=== PATIENT | female | born 1950 | race Caucasian/White ===

== ENCOUNTER 2019-04-26 00:10 | Day surgery (SDC) | payer BC, SELFPAY ==
[2019-04-05 10:50] VITALS: BP 146/90; PULSE 72; RESP 18; TEMP 36.7; O2SAT 98; BMI 32.9
--- NOTE | 2019-04-23 10:50 | HP_ITS ---
DATE OF SERVICE: 04/26/2019 ADMIT DIAGNOSIS: Degenerative joint disease, right knee. HISTORY OF PRESENT ILLNESS: The patient is a 69-year-old female patient of Khan[facility], who presents today for a right total knee arthroplasty. She has been having pain in this knee for years. She did have a cortisone injection last September in 2018 with minimal help. She has been on anti-inflammatories in the past, but has stopped them due to elevation of her creatinine. She takes Tylenol only for pain. She has severe arthritis in the lateral compartment as well as the patellofemoral joint in the right knee. She feels at this point she is ready to proceed with total knee arthroplasty rather than continuing nonsurgical treatment. PAST MEDICAL AND SURGICAL HISTORY: She had hysterectomy in , rotator cuff surgery in 2001. She has hypothyroidism as well as diabetes. CURRENT MEDICATIONS: Takes atorvastatin 20 mg daily, calcium daily, fluoxetine 20 mg daily, folic acid 1 mg daily, losartan 50 mg daily, metformin 1000 mg daily, montelukast 10 mg daily, niacin 1000 mg daily, Synthroid 0.125 mcg daily. ALLERGIES: SHE HAS NO KNOWN DRUG ALLERGIES. FAMILY HISTORY: Significant for hypertensive disorder. SOCIAL HISTORY: She is a nonsmoker. REVIEW OF SYSTEMS: Positive for the diabetes. PHYSICAL EXAMINATION: VITAL SIGNS: She is 5 feet 10 inches, 223 pounds. Other vital signs per nursing on the morning of surgery. HEENT: Grossly normal. LUNGS: Mckinley bilaterally. HEART: Regular rate and rhythm. MUSCULOSKELETAL: She walks with a 4-prong cane and a mild limp. Range of motion of the right knee is from 2-140 with a trace effusion. Normal stability. Moderately severe pain with patellofemoral grind. Mild lateral joint line tenderness. No edema in the lower extremities. Normal sensation. Skin is all normal. 2+ dorsalis pedis, posterior tibial pulse. Hip range of motion is full without discomfort. Negative Stinchfield maneuver. Normal quad strength and ankle dorsiflexion eversion and inversion strength. IMAGING: X-rays demonstrate moderately severe patellofemoral arthritis in the right knee with early bone loss, moderately severe lateral compartment arthritis narrowing on the PA flexion view with 8 degrees of anatomic valgus alignment standing. IMPRESSION: Patient has severe lateral compartment and patellofemoral arthritis in the right knee with continued symptoms. Again she would like to proceed with total knee arthroplasty. Surgical procedure as well as risks and complications were discussed. All questions were answered and we will proceed. The patient will avoid any aspirin, ibuprofen products 1 week prior to surgery. We will plan to use Eliquis for 2 weeks followed by baby aspirin twice a day for deep venous thrombosis prophylaxis. Her nasal swab was negative. Chem panel, her creatinine was at 1.1. Her GFR was 49. Rest of her Chem panel is within normal limits. Hemoglobin A1c was 5.1, hemoglobin was 14.8, platelets are 205. Her EKG had some abnormalities, which necessitated a stress test, which was normal. There was no evidence of ischemia or irreversible ischemia or infarct. Ejection fraction was greater than 70%. The patient will see Khanh for presurgical clearance as well. Lewis I MT: Epifanio
--- NOTE | 2019-04-25 10:02 | WPDANESEPP ---
Anes - Eval Pre Procedure Procedure: Operation Date: 04/26/19 07:30 Proposed Procedures p Right Total Knee Arthroplasty(Right) - Feliz Cantrell MD Date/Time: 04/25/19 10:02 Pre Op Diagnosis: Osteo Arthritis Right Knee Patient Data Age: 69 Gender: F Height: 1.78 m Weight: 104.2 kg Last Vital Signs Temp 36.7 C 04/05/19 10:50 Pulse 72 04/05/19 10:50 Resp 18 04/05/19 10:50 BP 146/90 H 04/05/19 10:50 Pulse Ox 98 04/05/19 10:50 Allergies Allergy/AdvReac Type Severity Reaction Status Date / Time No Known Allergies Allergy Verified 04/05/19 10:09 Home Medications Medication Instructions Recorded Confirmed Type ascorbic acid (vitamin C) 1,000 mg 1,000 mg PO DAILY 03/11/19 04/05/19 History tablet,extended release atorvastatin 20 mg tablet 20 mg PO DAILY 03/11/19 04/05/19 History calcium carbonate-vitamin D3 600 1 cap PO DAILY 03/11/19 04/05/19 History mg (1,500 mg)-400 unit capsule fluoxetine 20 mg capsule 20 mg PO DAILY 03/11/19 04/05/19 History levothyroxine 137 mcg tablet 137 mcg PO DAILY 03/11/19 04/05/19 History losartan 50 mg tablet 50 mg PO DAILY 03/11/19 04/05/19 History montelukast 10 mg tablet 10 mg PO DAILY 03/11/19 04/05/19 History niacin 1,000 mg tablet,extended 1,000 mg PO DAILY 03/11/19 04/05/19 History release 24 hr PNV cmb#95-ferrous fumarate-FA 1 tablet PO DAILY 04/05/19 04/05/19 History [] acetaminophen [Tylenol Extra 1,000 mg PO BID PRN 04/05/19 04/05/19 History Strength] aspirin [Adult Low Dose Aspirin] 81 mg PO DAILY 04/05/19 04/05/19 History metformin 1,000 mg PO DAILY 04/05/19 04/05/19 History omega 7-cvr-sux-fish oil [Fish Oil] 1 cap PO BID 04/05/19 04/05/19 History Patient hx anesthesia problems: none Family hx anesthesia problems: none PMFSH Past Medical History Medical History (Updated 04/25/19 @ 10:03 by Tristian Rollins CRNA) Abnormal EKG Anxiety Arthritis Benign essential hypertension BMI 33.0-33.9,adult Depression Diabetes DJD (degenerative joint disease), multiple sites Elevated glucose Elevated serum creatinine Encounter for Medicare annual wellness exam HTN (hypertension) Hyperlipidemia Hypothyroidism (acquired) 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
[2019-04-26] VITALS (13 sets, daily range): BP systolic 96–139; BP diastolic 63–86; PULSE 56–79; RESP 13–20; TEMP 36.2–37; O2SAT 93–100
--- NOTE | ~2019-04-26 | XR_ITS ---
EXAMINATION: XR knee RT 2V DATE: 04/26/2019 11:10 INDICATION: Right knee arthroplasty. Postop. TECHNIQUE: 2 views of right knee were obtained. COMPARISON: Right knee radiographs 08/15/2018 FINDINGS: There is a total right knee arthroplasty in near-anatomic alignment with patellar resurfaci ng. No fracture. There is gas in the knee joint and soft tissues, consistent with recent surgery. IMPRESSION: 1. Total right knee arthroplasty in near-anatomic alignment. Reviewed, dictated and finalized at location A. RNMENT AFFAIRS RESEARCHER
[2019-04-26] MEDS: LACTATED RINGERS 1,000 ML 30 ML IV CONT ×2 (06:45→11:11)
--- NOTE | 2019-04-26 06:57 | WPDANESEPPF ---
Anes - Initial Pre Proc Eval Procedure: Operation Date: 04/26/19 07:30 Proposed Procedures p Right Total Knee Arthroplasty(Right) - Feliz Cantrell MD Date/Time: 04/26/19 06:57 Surgeon: Feliz Cantrell MD Pre Op Diagnosis: Osteo Arthritis Right Knee Patient Data Age: 69 Gender: F Height: 5 ft 10 in Weight: 106.5 kg Last Vital Signs Temp 98.0 F 04/05/19 10:50 Pulse 72 04/05/19 10:50 Resp 18 04/05/19 10:50 BP 146/90 H 04/05/19 10:50 Pulse Ox 98 04/05/19 10:50 Allergies Allergy/AdvReac Type Severity Reaction Status Date / Time No Known Allergies Allergy Verified 04/26/19 06:21 Home Medications Medication Instructions Recorded Confirmed Type ascorbic acid (vitamin C) 1,000 mg 1,000 mg PO DAILY 03/11/19 04/26/19 History tablet,extended release atorvastatin 20 mg tablet 20 mg PO DAILY 03/11/19 04/26/19 History calcium carbonate-vitamin D3 600 1 cap PO DAILY 03/11/19 04/26/19 History mg (1,500 mg)-400 unit capsule fluoxetine 20 mg capsule 20 mg PO DAILY 03/11/19 04/26/19 History levothyroxine 137 mcg tablet 137 mcg PO DAILY 03/11/19 04/26/19 History losartan 50 mg tablet 50 mg PO DAILY 03/11/19 04/26/19 History montelukast 10 mg tablet 10 mg PO DAILY 03/11/19 04/26/19 History niacin 1,000 mg tablet,extended 1,000 mg PO DAILY 03/11/19 04/26/19 History release 24 hr PNV cmb#95-ferrous fumarate-FA 1 tablet PO DAILY 04/05/19 04/26/19 History [] acetaminophen [Tylenol Extra 1,000 mg PO BID PRN 04/05/19 04/05/19 History Strength] aspirin [Adult Low Dose Aspirin] 81 mg PO DAILY 04/05/19 04/26/19 History metformin 1,000 mg PO DAILY 04/05/19 04/26/19 History omega 5-bwt-kfk-fish oil [Fish Oil] 1 cap PO BID 04/05/19 04/26/19 History Patient hx anesthesia problems: none Family hx anesthesia problems: none [facility] Past Medical History Medical History (Updated 04/25/19 @ 10:03 by Tristian Rollins CRNA) Abnormal EKG Anxiety Arthritis Benign essential hypertension BMI 33.0-33.9,adult Depression Diabetes DJD (degenerative joint disease), multiple sites Elevated glucose Elevated serum creatinine Encounter for Medicare annual wellness exam HTN (hypertension) Hyperlipidemia Hypothyroidism (acquired) 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 Family History Family History Sibling Acute myocardial infarction, Onset Age: 63 Patient's brother is Father Family history of heart disease in male family member before age 55 Acute myocardial infarction Mother Cerebrovascular accident Other Family history of cardiovascular disease Family history of coronary artery disease Hypertension Social History Social History Smoking status: Never smoker Alcohol intake: current Anes - Eval Final PreProcedure Day of Procedure 04/26/19 06:57 Patient weight: overweight Heart: regular rate and rhythm Lungs: clear to auscultation Airway: Mallampati scale class II Neurological: alert and oriented Last oral intake: >/= 8 hours ASA classification: III Emergent: no Anesthetic plan: proceed Anesthesia type and monitoring: regional spinal and standard monitoring Informed Consent: The patient's anesthetic plan and its attendant risks and benefits were discussed with the patient/family/POA. Questions were solicited and answers provided to the satisfaction of the patient/family/POA.
[2019-04-26] MEDS: IBUPROFEN IV 800 MG/200 ML 800 MG/200 ML BAG 400 MG IVPB (07:17)
--- NOTE | 2019-04-26 07:26 | WPDHPUPDATE1 ---
History and Physical Update Update Date/Time: 04/26/19 07:26 History and Physical has been reviewed, including an updated exam of the patient. There are NO changes in the patient's condition. Risks, benefits, and alternatives have been discussed and questions answered. Patient agrees to proceed with procedure.
[2019-04-26 07:33] LABS: Glucose Point of Care 114 (65-105)
[2019-04-26] MEDS: ceFAZolin 2 GM/D5W 50 ML 2 GM/50 ML BAG IVPB (07:38)
[2019-04-26] MEDS: GENTAMICIN BONE CEMENT REFOBACIN 1 EACH TOPICAL (08:04)
[2019-04-26] MEDS: ceFAZolin SODIUM 1 GM VIAL 3 GM IRRIGATION (08:04)
[2019-04-26] MEDS: ceFAZolin SODIUM 1 GM VIAL IV PUSH (10:16)
--- NOTE | 2019-04-26 10:51 | PM.PROC ---
Procedure Note - Detailed Date of procedure: 04/26/19 Pre-op diagnosis: Osteo Arthritis Right Knee Post-op diagnosis: same Procedure performed: Right total knee arthroplasty Description of procedure: Patient was brought to the operating room and spinal anesthesia was administered. the right knee was prepped draped usual fashion. She had about a 3? flexion contracture under anesthesia. She received 2 g Ancef weight based vancomycin preoperatively 1 g of tranexamic acid. The right leg was exsanguinated and tourniquet elevated to 250 mm of mercury. An 8 inch longitudinal incision was made in the vastus medialis splitting approach utilized. The infrapatellar and suprapatellar fat pads were excised and a quadriceps synovectomy carried out. she had rather severe degenerative changes of both the trochlea and the patella. the patella was scalp. Measured 23.5 mm in thickness. it was cut to 16 mm. A lateral facetectomy was conservatively performed. protector cap applied to the patella. A guide sierra was inserted down the femoral canal after aspiration canal contents using the 5? valgus cutting bushing 10 mm of bone removed the distal femur off the intact articular cartilage on the medial femoral condyle. This removed about 8 laterally. next the tibial plateau was cut. Rojelio is to make a conservative tibial cut given her minimal posterior slope on the tibia. my 1st cut did not get down to the level of subchondral bone posteriorly either medially or laterally. The dropped the guide 2 mm in Re cut the tibia and this gave us the desired skim cut. With the PCL released we had ample space in flexion opening up 9 mm medially 12 mm laterally. Whitesides line and the trans epicondylar axis were drawn on the femur. the femoral sizing guide was set at 3? of external rotation which matched both and posterior and high referencing pin holes replaced. The femur was cut to a size 70 femur which fit nicely. the alignment of the tibial cut was confirmed to be accurate. We had equal flexion gap space at 90? both medially and laterally with a trial insert. the tibia was sized to a size vanguard 75 which was rotated to appropriate alignment referenced off the medial 3rd of tubercle anterior cortex of tibia and the foot. this fit line to line drop machine operator lateral to anteromedial. This was punched. We trialed with the 10 insert and the knee lacked about 10?. We pie crusted the tight lateral capsule with the cautery and this improved the flexion contracture to about 60?. We were far too loose in flexion with the 10. I trialed the 12 and there was a little bit of play with the 12 in flexion and this seemed appropriate and certainly not too tight in flexion. therefore we cut 3 mm off the distal femur chamfer cuts were revisited. The minimal protruding bone posteriorly was and removed referencing off the femoral trial. We trialed with the 12 and we still lacked about 5? of extension but we opened up about 3 mm medially at 15? of flexion so I did not wish to remove more distal femur. Our stability at 90? was optimal at this time. a concerted effort to release the drop machine operator lateral capsule from the drop machine operator lateral margin of the tibial plateau was performed. We left the lateral collateral ligament and the popliteus tendon intact. Additionally removed about 2 mm of lateral osteophyte from the lateral tibial plateau. On trialing the still lacked about 2? of extension. We revisited the posterior capsule which was released centrally and laterally off posterior femur trialing again the knee came out to full extension with negative bounce with a 0.5 mm lateral opening in 2 mm of medial opening in full extension increasing to 3 mm of medial opening at 15? and 30? flexion. anterior drawer was excellent. With a Lugo elevator we had about a mm of gapping both medially and laterally at 90?. [place] flexion was to 140. Satisfied with this the lug holes in the femoral trial were drilled and a S step drill used to make multip
[2019-04-26 12:13] LABS: Glucose Point of Care 108 (65-105)
--- NOTE | 2019-04-26 12:21 | ADMGEN ---
This patient, Elizabeth De Leon, was admitted to 3 [facility] Surg Room 310-01. Patient/family oriented to hospital policies and general routines including ID bracelet, bed and alarms, visiting hours, pain management, procedures, bathroom and other care routines, personal items, smoking policy, room service/diet, and visiting hours. Valuables list has been completed. Information on how to activate the Rapid Response Team has been discussed. Patient/Family are encouraged to report perceived risks to care and to ask questions if they do not understand what they are told or what they should do.
[2019-04-26] MEDS: DEXTROSE 5%/0.45% SOD CHL 1,000 ML 100 ML IV CONT ×2 (13:09→23:36)
[2019-04-26] MEDS: GABAPENTIN 300 MG CAPSULE PO ×2 (13:10→17:34)
[2019-04-26] MEDS: ACETAMINOPHEN 500 MG TABLET 1000 MG PO ×3 (13:10→23:36)
[2019-04-26] MEDS: DOCUSATE SODIUM 100 MG CAPSULE PO (17:34)
[2019-04-27 02:00] VITALS: BP 104/57; PULSE 76; RESP 18; TEMP 36.8; O2SAT 97
[2019-04-27] MEDS: ACETAMINOPHEN 500 MG TABLET 1000 MG PO ×2 (05:25→11:19)
[2019-04-27 05:53] VITALS: BP 135/76; PULSE 72; RESP 18; TEMP 36.5; O2SAT 96
[2019-04-27 06:24] LABS: Basophils Percent Auto 0.2 % (0.2-1.2); Hematocrit 34.1 % (37.0-47.0); Hemoglobin 11.5 g/dL (12.0-15.0); Immature Granulocyte Absolute 0.04 K/mm3 (0.00-0.031); Immature Granulocyte Percent A 0.3 % (0-0.5); Lymphocytes Absolute Auto 1.07 K/mm3 (0.9-3.2); Lymphocytes Percent Auto 9.2 % (18.3-44.2); Mean Corpuscular HGB Conc 33.7 g/dl (32-36); Mean Corpuscular Hemoglobin 31.3 pg (26-34); Mean Corpuscular Volume 92.9 fl (80-100); Mean Platelet Volume 9.7 fl (7.4-10.4); Monocytes Percent Auto 8.7 % (2.6-8.5); Neutrophils Absolute Auto 9.5 K/mm3 (1.3-6.7); Neutrophils Percent Auto 81.6 % (45.5-73.1); Platelet Count Result 206 k/mm3 (150-375); Red Blood Count 3.67 M/mm3 (4.2-5.4); Red Cell Distribution Width 12.5 % (11.5-14.5); White Blood Count 11.6 K/mm3 (4.5-10.0)
--- NOTE | 2019-04-27 06:28 | P.PNOP_ITS ---
Progress Note: A&P Additional Plan POD 1 alert avss labs-pending, wd-dry NVI pain is controlled with regime she is on, has been up walking yesterday, plan for pt to do both PT sessions today then home Subjective Subjective Date/Time Seen: 04/27/19 06:28 Objective Data Vital Signs Vital Signs: Vital Signs - 24 hr 04/26/19 07:32 04/26/19 11:11 04/26/19 11:15 Temperature 36.2 C L 36.3 C L Pulse Rate 56 L 79 72 Respiratory Rate 16 16 15 Blood Pressure 136/84 124/70 121/65 Pulse Oximetry 98 100 100 04/26/19 11:30 04/26/19 11:45 04/26/19 12:00 Temperature Pulse Rate 78 76 69 Respiratory Rate 13 17 14 Blood Pressure 121/72 96/81 L 115/64 Pulse Oximetry 100 95 95 04/26/19 12:15 04/26/19 12:30 04/26/19 12:45 Temperature 37.0 C Pulse Rate 79 76 65 Respiratory Rate 17 18 18 Blood Pressure 115/64 132/74 132/68 Pulse Oximetry 95 95 98 04/26/19 13:15 04/26/19 14:15 04/26/19 18:00 Temperature 36.9 C 36.9 C Pulse Rate 68 67 62 Respiratory Rate 18 20 18 Blood Pressure 130/71 139/86 135/78 Pulse Oximetry 96 98 100 04/26/19 22:00 04/27/19 02:00 04/27/19 05:53 Temperature 36.6 C 36.8 C 36.5 C Pulse Rate 78 76 72 Respiratory Rate 16 18 18 Blood Pressure 113/63 104/57 L 135/76 Pulse Oximetry 93 97 96 Intake/Output Intake/Output: Intake & Output 04/24/19 04/25/19 04/26/19 04/27/19 23:59 23:59 23:59 23:59 Intake Total 3520 550 Output Total 1300 1950 Balance 2220 -1400 Meds/Results Medications: Active Medications Generic Name Dose Route Start Last Admin Trade Name Freq PRN Reason Stop Dose Admin Acetaminophen 1,000 mg 04/26/19 12:17 04/27/19 05:25 Tylenol Tablet PO 1,000 mg Q6H JEFF Administration Apixaban 2.5 mg 04/27/19 09:00 Eliquis PO 02/15/20 21:01 Q12HR [facility] Ascorbic Acid 1,000 mg 04/27/19 09:00 Vitamin C PO QAM [facility] Atorvastatin Calcium 20 mg 04/27/19 09:00 Lipitor PO DAILY [facility] Calcium Carbonate 500 mg 04/27/19 09:00 Os-Naseem 500 +D Tablet PO QAM [facility] Celecoxib 100 mg 04/27/19 09:00 Celebrex PO DAILY@0900 [facility] Cephalexin HCl 500 mg 04/27/19 12:00 Keflex Capsule PO 05/04/19 12:01 Q6HR [facility] Docusate Sodium 100 mg 04/26/19 17:00 04/26/19 17:34 Colace Capsule PO 100 mg BID [facility] Administration Fentanyl Citrate 25 mcg 04/26/19 06:58 04/26/19 12:10 Sublimaze IV PUSH 25 mcg Q2M PRN Administration Pain Fluoxetine HCl 20 mg 04/27/19 09:00 Prozac PO DAILY [facility] Gabapentin 300 mg 04/26/19 13:00 04/26/19 17:34 Neurontin PO 300 mg TID [facility] Administration Lactated Ringer's 1,000 mls @ 30 mls/hr 04/25/19 11:25 04/26/19 12:39 Lr - Lactated Ringers Iv IV CONT Not Given .Q24H [facility] Lactated Ringer's 1,000 mls @ 30 mls/hr 04/26/19 07:00 04/26/19 12:17 Lr - Lactated Ringers Iv IV CONT Infus
--- NOTE | 2019-04-27 06:28 | PM.PNORT ---
Progress Note: A&P Additional Plan POD 1 alert avss labs-pending, wd-dry NVI pain is controlled with regime she is on, has been up walking yesterday, plan for pt to do both PT sessions today then home Subjective Subjective Date/Time Seen: 04/27/19 06:28 Objective Data Vital Signs Vital Signs: Vital Signs - 24 hr 04/26/19 07:32 04/26/19 11:11 04/26/19 11:15 Temperature 36.2 C L 36.3 C L Pulse Rate 56 L 79 72 Respiratory Rate 16 16 15 Blood Pressure 136/84 124/70 121/65 Pulse Oximetry 98 100 100 04/26/19 11:30 04/26/19 11:45 04/26/19 12:00 Temperature Pulse Rate 78 76 69 Respiratory Rate 13 17 14 Blood Pressure 121/72 96/81 L 115/64 Pulse Oximetry 100 95 95 04/26/19 12:15 04/26/19 12:30 04/26/19 12:45 Temperature 37.0 C Pulse Rate 79 76 65 Respiratory Rate 17 18 18 Blood Pressure 115/64 132/74 132/68 Pulse Oximetry 95 95 98 04/26/19 13:15 04/26/19 14:15 04/26/19 18:00 Temperature 36.9 C 36.9 C Pulse Rate 68 67 62 Respiratory Rate 18 20 18 Blood Pressure 130/71 139/86 135/78 Pulse Oximetry 96 98 100 04/26/19 22:00 04/27/19 02:00 04/27/19 05:53 Temperature 36.6 C 36.8 C 36.5 C Pulse Rate 78 76 72 Respiratory Rate 16 18 18 Blood Pressure 113/63 104/57 L 135/76 Pulse Oximetry 93 97 96 Intake/Output Intake/Output: Intake & Output 04/24/19 04/25/19 04/26/19 04/27/19 23:59 23:59 23:59 23:59 Intake Total 3520 550 Output Total 1300 1950 Balance 2220 -1400 Meds/Results Medications: Active Medications Generic Name Dose Route Start Last Admin Trade Name Freq PRN Reason Stop Dose Admin Acetaminophen 1,000 mg 04/26/19 12:17 04/27/19 05:25 Tylenol Tablet PO 1,000 mg Q6H JEFF Administration Apixaban 2.5 mg 04/27/19 09:00 Eliquis PO 02/15/20 21:01 Q12HR [facility] Ascorbic Acid 1,000 mg 04/27/19 09:00 Vitamin C PO QAM [facility] Atorvastatin Calcium 20 mg 04/27/19 09:00 Lipitor PO DAILY [facility] Calcium Carbonate 500 mg 04/27/19 09:00 Os-Naseem 500 +D Tablet PO QAM [facility] Celecoxib 100 mg 04/27/19 09:00 Celebrex PO DAILY@0900 [facility] Cephalexin HCl 500 mg 04/27/19 12:00 Keflex Capsule PO 05/04/19 12:01 Q6HR [facility] Docusate Sodium 100 mg 04/26/19 17:00 04/26/19 17:34 Colace Capsule PO 100 mg BID JEFF Administration Fentanyl Citrate 25 mcg 04/26/19 06:58 04/26/19 12:10 Sublimaze IV PUSH 25 mcg Q2M PRN Administration Pain Fluoxetine HCl 20 mg 04/27/19 09:00 Prozac PO DAILY [facility] Gabapentin 300 mg 04/26/19 13:00 04/26/19 17:34 Neurontin PO 300 mg TID JEFF Administration Lactated Ringer's 1,000 mls @ 30 mls/hr 04/25/19 11:25 04/26/19 12:39 Lr - Lactated Ringers Iv IV CONT Not Given .Q24H JEFF Lactated Ringer's 1,000 mls @ 30 mls/hr 04/26/19 07:00 04/26/19 12:17 Lr - Lactated Ringers Iv IV CONT Infused .Q24H JEFF Infusion Cefazolin Sodium 1 gm in 50 mls @ 100 mls/hr 04/26/19 15:30 04/26/19 23:35 Ancef 1 Gm/D5w 50 Ml Pm IVPB 04/27/19 07:59 100 mls/hr Q8H JEFF Administration Dextrose/Sodium Chloride 1,000 mls @ 100 mls/hr 04/26/19 12:17 04/26/19 23:36 Dextrose 5% Sodium Chloride 0.45% IV CONT 100 mls/hr .Q10H JEFF Administration Vancomycin HCl 1,000 mg in 250 mls @ 250 mls/hr 04/26/19 19:00 04/26/19 19:22 Vancomycin 1,000 Mg/D5w 250 Ml IVPB 04/27/19 07:59 Infused Q12H JEFF Infusion Levothyroxine Sodium 112 mcg 04/27/19 06:30 Synthroid PO DAILY@0630 JEFF Levothyroxine Sodium 25 mcg 04/27/19 06:30 Synthroid PO DAILY@0630 JEFF Losartan Potassium 50 mg 04/27/19 09:00 Cozaar PO DAILY JEFF Metformin HCl 1,000 mg 04/27/19 08:00 Glucophage PO DAILY@0800 JEFF Montelukast Sodium 10 mg 04/27/19 09:00 Singulair PO DAILY JEFF Naloxone HCl 0.1 mg 04/26/19 12:17 Narcan IV PUSH Q2M PRN Opiate Reversal Ondansetron HCl 4 mg 04/26/19 06:58 Zofran Inj IV PUSH
[2019-04-27] MEDS: LEVOTHYROXINE SODIUM 112 MCG TABLET PO (06:34)
[2019-04-27] MEDS: LEVOTHYROXINE SODIUM 25 MCG TABLET PO (06:34)
[2019-04-27 06:35] LABS: Blood Urea Nitrogen 17 mg/dL (7-17); Calcium 8.2 mg/dL (8.4-10.2); Carbon Dioxide 25 mmol/L (22-30); Chloride 98 mmol/L (98-107); Estimated CRCL calculation 55 ml/min; Estimated Glomerular Filt Rate 49; Glucose 135 mg/dL (65-105); Potassium 4.2 mmol/L (3.4-5.0); Sodium 131 mmol/L (137-145)
--- NOTE | 2019-04-27 07:55 | P.PNAN_ITS ---
Anes - Prog Note Post-Op Date/Time: 04/27/19 07:55 Cardiovascular status: normal Respiratory status: normal Airway patency: baseline Mental status: baseline Post-Op hydration status: normal Vital Signs: Last Vital Signs Temp 36.5 C 04/27/19 05:53 Pulse 72 04/27/19 05:53 Resp 18 04/27/19 05:53 BP 135/76 04/27/19 05:53 Pulse Ox 96 04/27/19 05:53 I/O: Intake & Output 04/26/19 04/26/19 04/27/19 15:59 23:59 07:59 Intake Total 400 3120 750 Output Total 250 1050 2750 Balance 150 2069 Laboratory Tests 04/27/19 05:51 04/27/19 05:51 04/26/19 04/26/19 04/27/19 06:52 12:11 05:51 WBC 11.6 H RBC 3.67 L Hgb 11.5 L D Hct 34.1 L MCV 92.9 MCH 31.3 MCHC 33.7 RDW 12.5 Plt Count 206 MPV 9.7 Immature Gran % (Auto) 0.3 Neut % (Auto) 81.6 H Lymph % (Auto) 9.2 L [place] % (Auto) 8.7 H Eos % (Auto) 0.0 Baso % (Auto) 0.2 Lymph # (Auto) 1.07 [place] # (Auto) 1.0 H Eos # (Auto) 0.0 Baso # (Auto) 0.0 Abs Immat Gran (auto) 0.04 H Absolute Neuts (auto) 9.5 H Absolute Nucleated RBC 0.0 Nucleated RBC % 0.0 Sodium Potassium Chloride Carbon Dioxide BUN Creatinine Estim Creat Clear Calc Estimated GFR Glucose POC Capillary Glucose 108 Calcium Blood Type O Positive Antibody Screen Negative 04/27/19 05:51 WBC RBC Hgb Hct MCV MCH MCHC RDW Plt Count MPV Immature Gran % (Auto) Neut % (Auto) Lymph % (Auto) [place] % (Auto) Eos % (Auto) Baso % (Auto) Lymph # (Auto) [place] # (Auto) Eos # (Auto) Baso # (Auto) Abs Immat Gran (auto) Absolute Neuts (auto) Absolute Nucleated RBC Nucleated RBC % Sodium 131 L Potassium 4.2 Chloride 98 Carbon Dioxide 25 BUN 17 Creatinine 1.10 H Estim Creat Clear Calc 55 Estimated GFR 49 L Glucose 135 H POC Capillary Glucose Calcium 8.2 L Blood Type Antibody Screen Post-procedural complaints: none Patient Feedback: Patient satisfied with anesthetic care.
--- NOTE | 2019-04-27 09:19 | DS_ITS ---
DATE OF DISCHARGE: 04/27/2019 DIAGNOSIS: Degenerative joint disease, right knee. HOSPITAL COURSE: The patient is a 69-year-old female underwent right total knee arthroplasty by Dr. Cantrell on 04/26/2019, underwent the procedure without any complications. Postop, she has been afebrile. Vital signs are stable. Neurovascularly intact. Her wound is dry. She has a Mepilex dressing over it. She is weightbearing as tolerated. She was up walking the day of surgery and is doing well with her pain control. She will be discharged to home on 04/27. The patient was advised to keep the leg elevated to prevent swelling, but also do her exercises on a regular basis at home. She has outpatient physical therapy starting later this week. She is going home on oxycodone, scheduled Tylenol, gabapentin, and Celebrex 100 mg daily for pain. We are limiting her Celebrex due to her slightly elevated creatinine. Postop day 1, hemoglobin is 11.5, platelets are 206. Chem panel; sodium was low at 131, creatinine is 1.1. She is also going home on a week of Keflex due to her history of diabetes. She will go home on a regular diet. The patient was advised if any questions or concerns when she is home, she is to call the office; otherwise, we will see her at her appointed date. Lweis I MT: Epifanio
[2019-04-27] MEDS: polyethylene glycoL 3350 17 GM POWD.PACK PO (09:28)
[2019-04-27 09:30] VITALS: BP 94/60; PULSE 57; RESP 22; TEMP 36.3; O2SAT 96
[2019-04-27] MEDS: DOCUSATE SODIUM 100 MG CAPSULE PO (09:30)
[2019-04-27] MEDS: ASCORBIC ACID 500 MG TABLET 1000 MG PO (09:31)
[2019-04-27] MEDS: metFORMIN HCL 500 MG TABLET 1000 MG PO (09:31)
[2019-04-27] MEDS: MONTELUKAST SODIUM 10 MG TABLET PO (09:31)
[2019-04-27] MEDS: MULTIVIT/MIN/PREN/FOL AC/IRON TABLET 1 TAB PO (09:31)
[2019-04-27] MEDS: APIXABAN 2.5 MG TABLET PO (09:31)
[2019-04-27] MEDS: GABAPENTIN 300 MG CAPSULE PO ×2 (09:32→13:28)
[2019-04-27] MEDS: FLUOXETINE HCL 20 MG CAP PO (09:32)
[2019-04-27 10:40] VITALS: BP 122/70; PULSE 60; RESP 18; TEMP 36.9; O2SAT 96
[2019-04-27] MEDS: SENNA/DOCUSATE SODIUM TABLET 2 TAB PO (11:18)
[2019-04-27] MEDS: CEPHALEXIN 500 MG CAPSULE PO (11:19)
[2019-04-27] MEDS: LOSARTAN POTASSIUM 50 MG TABLET PO (11:19)
[2019-04-27] MEDS: ATORVASTATIN 20 MG TABLET PO (11:19)
[2019-04-27 13:00] VITALS: BP 136/79; PULSE 62; RESP 99
[2019-04-27 14:18] VITALS: BP 135/72; PULSE 60; RESP 20; TEMP 37.1; O2SAT 94
--- NOTE | 2019-04-27 14:48 | PC.NURSE ---
On 04/27/19, the student, [ Rupinder Mckenna], provided care and completed [facility] documentation on this patient. I have reviewed the student's documentation and agree with the findings.
== END 2019-04-27 14:57 | disposition home or self-care (01) ==
LOC: ANHSURGERY 06:46 → ANH3MEDSUR 04-27 06:40
PROVIDERS: PCP Internal Medicine; Visit Provider Orthopaedic Surgery
PROC: (CPT 27447; principal; 2019-04-26 07:30)
DX: M17.11 Unilateral primary osteoarthritis, right knee (principal); I10 Essential (primary) hypertension; E78.5 Hyperlipidemia, unspecified; E03.9 Hypothyroidism, unspecified; E11.9 Type 2 diabetes mellitus without complications; F41.8 Other specified anxiety disorders; Z79.82 Long term (current) use of aspirin
CPT/HCPCS: 27447; 36415; 73560; 80048; 85025; 86850; 86900; 86901; 97110; 97116; 97161; 97165; 97530; A9270; C1713; C1776; J0131; J0171; J0690; J1100; J1170; J1741; J2250; J2270; J2370; J2405; J2704; J2795; J3010; J3370; J7120

== ENCOUNTER 2019-07-15 12:49 | Emergency (ER) | payer BC, SELFPAY ==
[2019-07-15] VITALS (29 sets, daily range): BP systolic 100–151; BP diastolic 55–88; PULSE 70–119; RESP 16–26; TEMP 36.5; O2SAT 94–100
--- NOTE | ~2019-07-15 | XR_ITS ---
EXAMINATION: XR chest 2V DATE: 07/15/2019 13:38 INDICATION: Chest pain TECHNIQUE: PA and lateral views of the chest were obtained. COMPARISON: Chest radiograph dated 05/13/2017 FINDINGS: The lungs remain clear with no focal airspace opacities, pulmonary edema, pleural effusion or pneumot horax. The cardiomediastinal silhouette is normal. Partially visualized mild lumbar dextroscoliosis. Moderate thoracolumbar spondylosis. IMPRESSION: 1. No acute cardiopulmonary disease. Reviewed, dictated and finalized at location A.
--- NOTE | ~2019-07-15 | CT_ITS ---
EXAMINATION: CT chest abdomen pelvis w con DATE: 07/15/2019 14:52 INDICATION: Chest pain and right upper quadrant abdominal pain. TECHNIQUE: Computed tomography (CT) of the chest, abdomen, and pelvis was performed with 100 mL Omnip aque-350 intravenous contrast. Automated exposure control and iterative reconstruction technique were employed. The dose-length product was 1254.60 mGy-cm. COMPARISON: CT abdomen and pelvis dated 03/10/2014 FINDINGS: CHEST CT: There are a few <4 mm nodules in the bilateral lower lobes which are unchanged since the prior study. No pneumonia, pulmonary edema or other pulmonary infiltrates. No pleural effusion. Heart size is nor mal. Atherosclerotic coronary artery calcifications. No pericardial effusion. Thoracic aorta is ck l in caliber with no dissection. No pathologically enlarged thoracic lymphadenopathy. Moderate thorac ic spondylosis. Chronic mild anterior wedging at T6 and T7. ABDOMEN/PELVIS CT: Liver, gallbladder, pancreas, bilateral adrenal glands and kidneys are normal. Common bile duct measu res up to 8-9 mm diameter which is at the upper limits of normal for age. Unchanged lobular contour t o the inferior aspect of the otherwise normal spleen with splenic tissue extending along a collateral vessel extending to the left adnexa with increased prominence of the left gonadal vein. This may rep resent collateral drainage of the left kidney with the left renal vein appearing compressed between t he aorta and superior mesenteric artery. Bowel malrotation with the duodenum and jejunum remaining in the right abdomen with the colon remaining in the left abdomen and pelvis. No bowel obstruction. The re are few scattered diverticula along the sigmoid colon without adjacent inflammatory change to sugg est diverticulitis. The appendix is not visualized. No pericecal inflammatory change to suggest acute appendicitis. Bladder is normal. The uterus is not identified and has likely been surgically resecte d. No free intraperitoneal gas or fluid. No pathologically enlarged abdominal or pelvic lymphadenopat hy. Lumbar dextroscoliosis with severe spondylosis. IMPRESSION: 1. No acute intrathoracic process. 2. Common bile duct diameter at the upper limits of normal for age but with no evident obstructing st one or mass with normal gallbladder and no intrahepatic biliary ductal dilation. Correlate with liver function tests. No other acute intra-abdominal/pelvic process. 3. Intestinal malrotation. Reviewed, dictated and finalized at location A. IMPRESSION: 1. No acute intrathoracic process. 2. Common bile duct diameter at the upper limits of normal for age but with no evident obstructing stone or mass with normal gallbladder and no intrahepatic b iliary ductal dilation. Correlate with liver function tests. No other acute int ra-abdominal/pelvic process. 3. Intestinal malrotation.
--- NOTE | ~2019-07-15 | US_ITS ---
EXAMINATION: US right upper quadrant EXAM DATE: 07/15/2019 16:11 INDICATION: Postprandial epigastric pain. TECHNIQUE: Multiple grayscale and Doppler images of the abdomen right upper quadrant were obtained (b y a technologist who performed the scan) and subsequently reviewed. Comparison is made to prior exami nation from 10/21/2018. FINDINGS: The pancreatic head and body are normal in appearance. The pancreatic tail is not visualized. The l iver has normal echogenicity and contour. There are no focal liver lesions identified. There is no evidence of intrahepatic biliary duct dilation. Portal venous flow was seen in the hepatopedal, nor mal direction and has normal Doppler waveform. No right-sided hydronephrosis. Common bile duct measures 7mm, which is normal for age. The gallbladder wall is normal in thickness, with expected amount of distention. No sonographic evidence of pericholecystic fluid. There is no c holelithiases. Technologist performing exam reports patient did not demonstrate sonographic Alston's sign. Please note that this sign is less reliable in patients who have received pain medication. IMPRESSION: 1. Unremarkable abdominal ultrasound exam. Reviewed, dictated and finalized at location A.
[2019-07-15] MEDS: NITROGLYCERIN SL 0.4 MG TABLET SUBLINGUAL (13:00)
--- NOTE | 2019-07-15 13:05 | ECG_ITS ---
Measurements Intervals [place] Rate: 101 P: 61 NH: 221 QRS: 11 QRSD: 104 T: 63 QT: 425 QTc: 552 Interpretive Statements SINUS TACHYCARDIA WITH FIRST DEGREE AV BLOCK MINIMAL Q WAVES- ANTEROLATERAL LEADS INFERIOR INFARCT, AGE INDETERMINATE BORDERLINE T WAVE ABNORMALITY- LATERAL LEADS BASELINE WANDER- II, AVR, AVL, AVF, V3-V6 ABNORMAL ECG Electronically Signed On 07-15-2019 13:10:23 CDT by Joshua Reed D.O.
--- NOTE | 2019-07-15 13:06 | ECG_ITS ---
Measurements Intervals [place] Rate: 96 P: 60 TN: 214 QRS: 13 QRSD: 110 T: 60 QT: 361 QTc: 458 Interpretive Statements SINUS RHYTHM WITH FIRST DEGREE AV BLOCK MINIMAL Q WAVES- ANTEROLATERAL LEADS INFERIOR INFARCT, AGE INDETERMINATE BORDERLINE ST-T WAVE ABNORMALITY- LATERAL LEADS BASELINE WANDER- I, III ABNORMAL ECG Electronically Signed On 07-15-2019 13:11:06 CDT by Joshua Reed D.O.
--- NOTE | 2019-07-15 13:07 | ED.CHESTPAIN ---
HPI - Chest Pain General Chief Complaint: Chest Pain <Rg Cao MD - Last Filed: 07/15/19 15:44> Stated Complaint: chest pain <Rg Cao MD - Last Filed: 07/15/19 15:44> Time Seen by Provider: 07/15/19 12:54 <Rg Cao MD - Last Filed: 07/15/19 15:44> History of Present Illness HPI narrative: Patient is a 69-year-old female who presents the ER with chest pain. Chest pain is burning and nonradiating. Associated with belching. Symptoms began last night became much more severe today after eating. She feels slightly tachypneic due to the discomfort and anxiousness. No fever/chills/sweats. No history of coronary disease. Patient did have a knee replacement in April 2019. She is not on blood thinners at this time. No recent lower extremity swelling. No hemoptysis. Patient is found no alleviating factors. She did try Pepto-Bismol and Tums. <Rg Cao MD - Last Filed: 07/15/19 15:44> Related Data Home Medications: Home Medications Medication Instructions Recorded Confirmed ascorbic acid (vitamin C) 1,000 mg 1,000 mg PO DAILY 03/11/19 04/26/19 tablet,extended release atorvastatin 20 mg tablet 20 mg PO DAILY 03/11/19 04/26/19 calcium carbonate-vitamin D3 600 1 cap PO DAILY 03/11/19 04/26/19 mg (1,500 mg)-400 unit capsule fluoxetine 20 mg capsule 20 mg PO DAILY 03/11/19 04/26/19 levothyroxine 137 mcg tablet 137 mcg PO DAILY 03/11/19 04/26/19 losartan 50 mg tablet 50 mg PO DAILY 03/11/19 04/26/19 montelukast 10 mg tablet 10 mg PO DAILY 03/11/19 04/26/19 niacin 1,000 mg tablet,extended 1,000 mg PO DAILY 03/11/19 04/26/19 release 24 hr PNV cmb#95-ferrous fumarate-FA 1 tablet PO DAILY 04/05/19 04/26/19 [] metformin 1,000 mg PO DAILY 04/05/19 04/26/19 omega 0-gyv-rho-fish oil [Fish Oil] 2 cap PO BID 04/05/19 04/26/19 <Rg Cao MD - Last Filed: 07/15/19 15:44> Allergies/Adverse Reactions: Allergies Allergy/AdvReac Type Severity Reaction Status Date / Time No Known Allergies Allergy Verified 07/15/19 14:10 <Rg Cao MD - Last Filed: 07/15/19 15:44> Review of Systems Review of Systems: All systems reviewed & are unremarkable except as noted in HPI and below <Rg Cao MD - Last Filed: 07/15/19 15:44> Constitutional: Constitutional: Denies chills, Denies fever(s) and Denies weakness <Rg Cao MD - Last Filed: 07/15/19 15:44> ENT: Denies nasal congestion and Denies sore throat <Rg Cao MD - Last Filed: 07/15/19 15:44> Cardiovascular: Cardiovascular: Reports chest pain, Denies rapid heart rate and Denies radiating jaw, neck or arm pain <Rg Cao MD - Last Filed: 07/15/19 15:44> Respiratory: Respiratory: Denies chest congestion, Denies cough, Reports dyspnea and Denies wheezing <Rg Cao MD - Last Filed: 07/15/19 15:44> Gastrointestinal: Gastrointestinal: Denies abdominal pain, Reports bloating, Reports nausea and Denies vomiting <Rg Cao MD - Last Filed: 07/15/19 15:44> [facility] Past Medical History Medical History: Medical History (Updated 07/15/19 @ 17:34 by Daniela Hwang MD) Abnormal EKG Anxiety Arthritis Benign essential hypertension BMI 33.0-33.9,adult Depression Diabetes DJD (degenerative joint disease), multiple sites Elevated glucose Elevated serum creatinine Encounter for Medicare annual wellness exam HTN (hypertension) Hyperlipidemia Hypothyroidism (acquired) On shelter drug therapy <Rg Cao MD - Last Filed: 07/15/19 15:44> Surgical History Surgical History: Surgical History (Updated 07/15/19 @ 15:40 by Rg Cao MD) History of knee replacement <Rg Cao MD - Last Filed: 07/15/19 15:44> Social History Social History: Social History Smoking status: Never smoker Alcohol intake: never Substance use: never Gender
[2019-07-15 13:18] LABS: Basophils Percent Auto 0.7 % (0.2-1.2); Eosinophils Absolute Auto 0.2 K/mm3 (0-0.3); Eosinophils Percent Auto 3.4 % (0-4.4); Hematocrit 42.1 % (37.0-47.0); Hemoglobin 14.2 g/dL (12.0-15.0); Immature Granulocyte Absolute 0.01 K/mm3 (0.00-0.031); Immature Granulocyte Percent A 0.2 % (0-0.5); Lymphocytes Percent Auto 30.7 % (18.3-44.2); Mean Corpuscular HGB Conc 33.7 g/dl (32-36); Mean Corpuscular Hemoglobin 30.5 pg (26-34); Mean Corpuscular Volume 90.5 fl (80-100); Mean Platelet Volume 9.6 fl (7.4-10.4); Monocytes Absolute Auto 0.4 K/mm3 (0.1-0.6); Monocytes Percent Auto 7.2 % (2.6-8.5); Neutrophils Absolute Auto 3.4 K/mm3 (1.3-6.7); Neutrophils Percent Auto 57.8 % (45.5-73.1); Platelet Count Result 240 k/mm3 (150-375); Red Blood Count 4.65 M/mm3 (4.2-5.4); Red Cell Distribution Width 12.7 % (11.5-14.5); White Blood Count 5.9 K/mm3 (4.5-10.0)
[2019-07-15 13:31] LABS: INR 0.9; Partial Thromboplastin Time 25.2 SECONDS (22.3-36.8); Prothrombin Time 12.3 Seconds (11.1-14.7)
[2019-07-15 13:39] LABS: Alanine Aminotransferase 41 U/L (4-35); Albumin Level 4.3 g/dL (3.5-5.1); Alkaline Phosphatase 116 U/L (38-126); Aspartate Amino Transferase 86 U/L (14-36); Bilirubin,Total 1.6 mg/dL (0.2-1.3); Blood Urea Nitrogen 20 mg/dL (7-17); Calcium 10.1 mg/dL (8.4-10.2); Carbon Dioxide 23 mmol/L (22-30); Chloride 106 mmol/L (98-107); Estimated CRCL calculation 58 ml/min; Estimated Glomerular Filt Rate 55; Glucose 114 mg/dL (65-105); Potassium 3.5 mmol/L (3.4-5.0); Sodium 139 mmol/L (137-145)
[2019-07-15 13:41] LABS: D Dimer 0.93 ug/mL (<0.48)
[2019-07-15 13:51] LABS: Troponin I < 0.012 ng/mL (0.000-0.034)
--- NOTE | 2019-07-15 16:00 | PC.NURSE ---
unable to draw the pts 3hr due to pt in [place].
[2019-07-15 16:38] LABS: Troponin I < 0.012 ng/mL (0.000-0.034)
[2019-07-15] MEDS: BELLADONNA ALK/PHENOB ELIX 10 ML, MAG HYDROX/ALUMINUM HYD/SIMETH 30 ML, LIDOCAINE HCL 2... PO (17:15)
== END 2019-07-15 18:19 | disposition home or self-care (01) ==
PROVIDERS: Emergency Medicine; Emergency Provider Emergency Medicine; PCP Internal Medicine
DX: K21.0 Gastro-esophageal reflux disease with esophagitis (principal); I10 Essential (primary) hypertension; E11.9 Type 2 diabetes mellitus without complications; E78.5 Hyperlipidemia, unspecified; E03.9 Hypothyroidism, unspecified; Z96.659 Presence of unspecified artificial knee joint; Z79.84 Long term (current) use of oral hypoglycemic drugs; I44.0 Atrioventricular block, first degree; R94.31 Abnormal electrocardiogram [ECG] [EKG]; R00.0 Tachycardia, unspecified
CPT/HCPCS: 36415; 71046; 71260; 74177; 76705; 80053; 84484; 85025; 85380; 85610; 85730; 93005; 99284; A9270; Q9967

== ENCOUNTER 2019-11-02 15:05 | Outpatient (CLI) | payer BC, SELFPAY ==
--- NOTE | 2019-11-05 15:31 | WPDHOLTEREM ---
Holter/Event Monitor Holter/Event Monitor Date of procedure: 11/02/19 Procedure Type: 48 hour holter monitor Indications: Tachycardia, Dizziness Conclusion: 1. 48 hour holter monitor on 11/02/19. 2. Underlying rhythm is sinus rhythm. HR range 56-154 bpm; average HR 78 bpm. 3. There are 45 premature supraventricular complexes and 6 supraventricular couplets. No supraventricular tachycardia. 4. There are 37 premature ventricular complexes. No ventricular tachycardia. 5. No
--- NOTE | 2019-11-08 17:00 | WPDHOLTEREM ---
Holter/Event Monitor Holter/Event Monitor Date of procedure: 11/02/19 Procedure Type: 48 hour holter monitor Indications: Tachycardia, Dizziness Conclusion: 1. 48 hour holter monitor on 11/02/19. 2. Predominant rhythm is sinus rhythm. HR range 56-154 bpm; average HR 78 bpm. 3. There are 172 premature supraventricular complexes and 16 supraventricular couplets. There are 50 runs of atrial tachycardia, fastest at 154 bpm and longest lasting 359 beats. 4. There are 28 premature ventricular complexes. No ventricular tachycardia. 5. No sinoatrial or atrioventricular blocks. No significant pauses greater than 2 seconds. 6. Patient reports symptoms of pulsing in lower neck twice which demonstrate atrial tachycardia at 115-118 bpm.
== END 2019-11-02 15:06 | disposition home or self-care (01) ==
PROVIDERS: PCP Internal Medicine; Visit Provider Internal Medicine
DX: R42 Dizziness and giddiness (principal); I47.1 Supraventricular tachycardia
CPT/HCPCS: 93225; 93226

== ENCOUNTER 2019-11-11 15:52 | Outpatient (CLI) | payer BC, SELFPAY ==
[2019-11-11 16:24] LABS: Anion Gap 5 mmol/L (8-16); Blood Urea Nitrogen 21 mg/dL (7-17); Calcium 9.4 mg/dL (8.4-10.2); Carbon Dioxide 28 mmol/L (22-30); Chloride 106 mmol/L (98-107); Estimated Glomerular Filt Rate 44; Glucose 93 mg/dL (65-105); Magnesium 2.1 mg/dL (1.6-2.3); Potassium 4.5 mmol/L (3.4-5.0); Sodium 139 mmol/L (137-145)
[2019-11-11 16:52] LABS: Thyroid Stimulating Hormone < 0.015 uIU/mL (0.465-4.680)
[2019-11-11 17:18] LABS: Free T4 Free Thyroxine 1.57 ng/mL (0.78-2.19)
[2019-11-15 10:20] LABS: Triiodothyronine T3 Free 2.7 pg/mL (2.3-4.2)
== END 2019-11-11 15:53 | disposition home or self-care (01) ==
PROVIDERS: PCP Internal Medicine; Visit Provider Internal Medicine
DX: E03.9 Hypothyroidism, unspecified (principal); I10 Essential (primary) hypertension; R00.0 Tachycardia, unspecified; R00.2 Palpitations
CPT/HCPCS: 36415; 80048; 83735; 84439; 84443; 84481

== ENCOUNTER 2019-12-09 09:24 | Outpatient (CLI) | payer BC, SELFPAY ==
--- NOTE | 2019-12-09 | ECHO_ITS ---
Patient Info Name: Elizabeth De Leon Age: 69 years : 1950 Gender: Female Ht: 70 in Wt: 220 lbs BSA: 2.25 m2 HR: 66 bpm BP: 126 / 80 mmHg Heart Rhythm: Sinus Rhythm Exam Date: 12/09/2019 10:02 AM Exam Location: [facility] Patient Status: Outpatient Admit Date: 12/09/2019 Staff Ordering Physician: Kapil Cassidy MD Managing Jeweler: Chen Carreno RDCS Attending Provider: Kapil Cassidy MD Referring Physician: Khanh CONTRERAS; Exam Type: CA echo doppler color flow Study Info Indications R00.0 - Tachycardia, unspecified R00.2 - Palpitations Complete two-dimensional, color flow and Doppler transthoracic echocardiogram is performed. Summary 1. Complete two-dimensional, color flow and Doppler transthoracic echocardiogram is performed. 2. Left ventricular chamber dimension is normal. 3. Left ventricular systolic function is normal, estimated at 60-65%. 4. The left ventricular diastolic function is grade I diastolic dysfunction. 5. E/e' 13 is mildly elevated. 6. Left atrial chamber dimension is mildly enlarged. 7. Right atrial chamber dimension is mildly enlarged. 8. There is mild aortic valve sclerosis. 9. There is trace aortic valve regurgitation. 10. There is trace mitral valve regurgitation. Left Ventricle E/e' 13 is mildly elevated. Left ventricular chamber dimension is normal. Left ventricular systolic function is normal, estimated at 60-65%. The left ventricular diastolic function is grade I diastolic dysfunction. Right Ventricle Right ventricular chamber dimension is normal. Right ventricular systolic function is normal. Left Atria Left atrial chamber dimension is mildly enlarged. Right Atria Right atrial chamber dimension is mildly enlarged. Aortic Valve The aortic valve is trileaflet. There is mild aortic valve sclerosis. There is no aortic valve stenosis. There is trace aortic valve regurgitation. Pulmonic Valve There is no pulmonic regurgitation. Mitral Valve There is no mitral valve stenosis. There is trace mitral valve regurgitation. Tricuspid Valve There is no tricuspid valve regurgitation. Pericardium/Pleural There is no pericardial effusion. Inferior Vena Cava Normal inferior vena cava with >50% collapse upon inspiration consistent with normal right atrial pressure, 5 mmHg. Aorta The aortic root size at the sinus of Valsalva is normal. Left Ventricular Outflow Tract Name Value Normal LVOT 2D LVOT Diameter 1.9 cm LVOT Doppler LVOT Peak Velocity 92 cm/s LVOT Peak Gradient 3 mmHg LVOT Mean Gradient 2 mmHg LVOT VTI 25 cm LVOT VTI/AV VTI Ratio 0.8 LVOT Stroke Volume 69 ml LVOT CO 4.0 l/min LVOT CI 1.8 l/min/m2 Pulmonic Valve Name Value Normal
== END 2019-12-09 09:25 | disposition home or self-care (01) ==
LOC: ANHCARD 09:31
PROVIDERS: PCP Internal Medicine; Visit Provider Internal Medicine
DX: R00.2 Palpitations (principal); R00.0 Tachycardia, unspecified; I51.7 Cardiomegaly; I35.8 Other nonrheumatic aortic valve disorders
CPT/HCPCS: 93306

== ENCOUNTER 2020-11-29 14:58 | Outpatient (CLI) | payer BC, SELFPAY ==
--- NOTE | ~2020-11-29 | XR_ITS ---
XR lumbar spine 2-3V 11/29/2020 16:14 Indication: Low back pain Procedure: 3 views lumbar spine Comparison: No prior studies for comparison. Findings: There is dextroscoliosis. There is disc narrowing and endplate degenerative change at all l umbar levels. There is advanced multilevel facet degenerative change. No acute fracture, subluxation or dislocation. Sacral foramen are symmetric. Impression: 1: Severe lumbar spondylosis with dextroscoliosis centered at L2. Reviewed, dictated and finalized at location A. Impression: 1: Severe lumbar spondylosis with dextroscoliosis centered at L2.
--- NOTE | ~2020-11-29 | XR_ITS ---
XR sacroiliac joints min 3V 11/29/2020 16:14 Indication: Low back pain Procedure: 3 view sacroiliac joints Comparison: No prior studies for comparison. Findings: There is mild bilateral symmetric degenerative changes of the sacroiliac joints. No evidenc e for lytic lesions or ankylosis. There is mild bilateral symmetric osteoarthritis of the hips. Lower lumbar spondylosis partially visualized. Impression: 1: Mild bilateral symmetric degenerative changes of the sacroiliac joints. Reviewed, dictated and finalized at location A. Impression: 1: Mild bilateral symmetric degenerative changes of the sacroiliac joints.
== END 2020-11-29 14:59 | disposition home or self-care (01) ==
LOC: ANHLAB 15:01
PROVIDERS: PCP Internal Medicine; Visit Provider Internal Medicine
DX: G89.29 Other chronic pain (principal); R82.998 Other abnormal findings in urine; M54.5 Low back pain; M25.559 Pain in unspecified hip; M47.816 Spondylosis without myelopathy or radiculopathy, lumbar region
CPT/HCPCS: 72100; 72202; 87086; 87088

== ENCOUNTER 2020-12-05 14:49 | Outpatient (CLI) | payer BC, SELFPAY ==
--- NOTE | ~2020-12-05 | CT_ITS ---
EXAMINATION: CT abdomen pelvis wo con DATE: 12/05/2020 15:20 INDICATION: Microscopic hematuria TECHNIQUE: Computed tomography (CT) of the abdomen and pelvis was performed without intravenous contr ast. The dose-length product (DLP) was 1097.24 mGy-cm. Automated exposure control and iterative recon struction technique were employed. COMPARISON: 07/15/2019 FINDINGS: The lung bases are clear. The heart size is normal. The liver, spleen, pancreas, gallbladde r, and adrenal glands are normal. The kidneys are unremarkable. No stones are identified in the kidne ys, ureters, or bladder. There is no hydronephrosis or hydroureter. No pathologically enlarged abdomi nal or pelvic lymph nodes are identified. There is no free intraperitoneal gas or evidence of bowel o bstruction. A moderate volume of colonic stool is present. Again noted is bowel malrotation with the small bowel in the right abdomen and large bowel in the left. There is severe lumbar spondylosis. IMPRESSION: 1. No CT correlate for the patient's symptoms. Reviewed, dictated and finalized at location A.
== END 2020-12-05 14:50 | disposition home or self-care (01) ==
PROVIDERS: PCP Internal Medicine; Visit Provider Internal Medicine
DX: R31.29 Other microscopic hematuria (principal)
CPT/HCPCS: 74176

== ENCOUNTER 2020-12-12 13:50 | Outpatient (CLI) | payer BC, SELFPAY ==
--- NOTE | ~2020-12-12 | MR_ITS ---
. EXAMINATION: MR lumbar spine wo con DATE: 12/12/2020 14:41 INDICATION: Lumbago. TECHNIQUE: Magnetic resonance imaging (MRI) of the lumbar spine was performed without intravenous con trast. Sequences included sagittal T2-weighted FSE, sagittal T2-weighted FS FSE, sagittal T1-weighted FSE, and axial T2-weighted FSE. COMPARISON: Lumbar spine radiographs 11/29/2020 FINDINGS: There is 21 degrees dextroscoliosis of thoracolumbar spine. There is 3 mm retrolisthesis of L2 on L3 and 3 mm anterolisthesis of L3 on L4. Vertebral body heights are normal. There is severely decreased disc height at T10-T11, mildly decreased disc height at T11-T12, severely decreased disc he ight at L2-L3, moderately decreased disc height at L3-L4, severely decreased disc height at L4-L5, an d mildly decreased disc height at L5-S1. There is moderate central canal stenosis at T10-T11 with tamika tral and dorsal indentation of the spinal cord. The distal spinal cord signal intensity is normal. Th e conus medullaris is at L1. The following disc levels are specifically discussed: L1-L2: The disc is bulging. There is moderate right and severe left facet joint osteoarthritis. There is mild bilateral neural foraminal stenosis. There is mild central canal stenosis. L2-L3: The disc is bulging. There is severe bilateral facet joint osteoarthritis. There is mild bilat eral neural foraminal stenosis. There is mild central canal stenosis. L3-L4: The disc is bulging and has an annular fissure. There is severe bilateral facet joint osteoart hritis. There is mild right and moderate left neural foraminal stenosis. There is mild central canal stenosis. L4-L5: The disc is bulging and has an annular fissure. There is severe bilateral facet joint osteoart hritis. There is moderate right and mild left neural foraminal stenosis. There is mild central canal stenosis. L5-S1: The disc is bulging and has an annular fissure. There is severe bilateral facet joint osteoart hritis. There is mild bilateral neural foraminal stenosis. There is mild central canal stenosis. IMPRESSION: 1. Severe lumbar and lower thoracic spondylosis. 2. Thoracolumbar dextroscoliosis. Reviewed, dictated and finalized at location A.
== END 2020-12-12 13:51 | disposition home or self-care (01) ==
LOC: ANHIMG 13:54
PROVIDERS: PCP Internal Medicine; Visit Provider Nurse Practitioner Family
DX: M47.817 Spondylosis without myelopathy or radiculopathy, lumbosacral region (principal); M48.07 Spinal stenosis, lumbosacral region; M41.9 Scoliosis, unspecified
CPT/HCPCS: 72148

== ENCOUNTER 2022-01-16 12:33 | Outpatient (CLI) | payer BC, SELFPAY ==
--- NOTE | ~2022-01-16 | US_ITS ---
US renal BI 01/16/2022 13:24 Procedure: Realtime transabdominal ultrasound of the kidneys and bladder. Indication: Chronic kidney disease Comparison: CT dated 12/05/2020 Findings: Renal echotexture is normal bilaterally without hydronephrosis, contour deforming mass or r enal calculus. The right kidney measures 11 cm and left kidney measures 9.8 cm. Bladder within ck l limits. Impression: 1: Unremarkable renal ultrasound. No stones, masses or hydronephrosis. Reviewed, dictated and finalized at location B. Impression: 1: Unremarkable renal ultrasound. No stones, masses or hydronephrosis.
== END 2022-01-16 12:34 | disposition home or self-care (01) ==
PROVIDERS: PCP Internal Medicine; Visit Provider Internal Medicine
DX: I12.9 Hypertensive chronic kidney disease with stage 1 through stage 4 chronic kidney disease, or unspecified chronic kidney disease (principal); N18.9 Chronic kidney disease, unspecified
CPT/HCPCS: 76775

== ENCOUNTER 2023-08-26 15:36 | Outpatient (CLI) | payer BC, SELFPAY ==
[2023-08-26 16:37] LABS: Basophils Absolute Auto 0.1 K/mm3 (0.0-0.1); Basophils Percent Auto 1.2 % (0.2-1.2); Eosinophils Absolute Auto 0.2 K/mm3 (0-0.3); Eosinophils Percent Auto 4.1 % (0-4.4); Hematocrit 46.3 % (37.0-47.0); Hemoglobin 15.6 g/dL (12.0-15.0); Immature Granulocyte Absolute 0.01 K/mm3 (0.00-0.031); Immature Granulocyte Percent A 0.2 % (0-0.5); Lymphocytes Absolute Auto 1.53 K/mm3 (0.9-3.2); Lymphocytes Percent Auto 29.9 % (18.3-44.2); Mean Corpuscular HGB Conc 33.7 g/dl (32-36); Mean Corpuscular Hemoglobin 31.2 pg (26-34); Mean Corpuscular Volume 92.6 fl (80-100); Mean Platelet Volume 10.1 fl (7.4-10.4); Monocytes Absolute Auto 0.4 K/mm3 (0.1-0.6); Monocytes Percent Auto 8.4 % (2.6-8.5); Neutrophils Absolute Auto 2.9 K/mm3 (1.3-6.7); Neutrophils Percent Auto 56.2 % (45.5-73.1); Platelet Count Result 259 k/mm3 (150-375); Red Cell Distribution Width 13.2 % (11.5-14.5); White Blood Count 5.1 K/mm3 (4.5-10.0)
[2023-08-26 16:42] LABS: Alanine Aminotransferase 20 U/L (6-35); Albumin Level 4.5 g/dL (3.5-5.1); Alkaline Phosphatase 94 U/L (38-126); Anion Gap 6 mmol/L (4-12); Aspartate Amino Transferase 32 U/L (14-36); Bilirubin,Total 1.1 mg/dL (0.2-1.3); Blood Urea Nitrogen 22 mg/dL (7-17); Calcium 10.1 mg/dL (8.4-10.2); Carbon Dioxide 31 mmol/L (22-30); Chloride 103 mmol/L (98-107); Estimated Glomerular Filt Rate 27; Glucose 93 mg/dL (65-110); Potassium 4.6 mmol/L (3.4-5.0); Sodium 140 mmol/L (137-145)
== END 2023-08-26 15:37 | disposition home or self-care (01) ==
LOC: ANHLAB 15:37
PROVIDERS: PCP Internal Medicine; Visit Provider Internal Medicine
DX: R42 Dizziness and giddiness (principal)
CPT/HCPCS: 36415; 80053; 85025

== ENCOUNTER 2023-09-13 13:57 | Observation (INO) | payer BC, SELFPAY ==
[2023-09-13] VITALS (8 sets, daily range): BP systolic 107–142; BP diastolic 79–87; PULSE 64–91; RESP 15–20; TEMP 36–36.5; O2SAT 97–99; BMI 30.9
--- NOTE | ~2023-09-13 | XR_ITS ---
EXAMINATION: XR chest 2V DATE: 09/13/2023 14:28 INDICATION: Chest pressure. TECHNIQUE: Frontal and lateral views of the chest were obtained. COMPARISON: Chest 2 views 07/15/2019 FINDINGS: There is no pneumonia, pleural effusion, or pneumothorax. The heart size is normal. There a re suture anchors in right humeral head. IMPRESSION: 1. No acute cardiopulmonary disease. Reviewed, dictated and finalized at location E.
--- NOTE | ~2023-09-13 | NM_ITS ---
EXAMINATION: NM marisol stress w perfusion DATE: 09/15/2023 14:28 INDICATION: Exertional chest pressure. Coronary artery disease. TECHNIQUE: Rest images were obtained following intravenous administration of 10 mCi Tc99m tetrofosmin (Myoview). The patient was infused intravenously with Lexiscan (Regadenoson). Then, 32 mCi Tc99m tet rofosmin (Myoview) was administered intravenously, and stress images were obtained. Data was reconstr ucted into short axis and horizontal and vertical long axis SPECT images. Gated SPECT images were als o obtained. COMPARISON: None. FINDINGS: There is no definite reversible or fixed perfusion abnormality to suggest ischemia or infar ction. There is normal left ventricular chamber size, wall motion and ejection fraction. Left ventr icular ejection fraction measures >70%. IMPRESSION: 1. Normal myocardial perfusion at rest and during stress. 2. Left ventricular ejection fraction measuring >70%. Reviewed, dictated and finalized at location B.
--- NOTE | ~2023-09-13 | NM_ITS ---
EXAMINATION: NM lung vent and perfusion DATE: 09/13/2023 19:17 INDICATION: Chest pressure. TECHNIQUE: 13 mCi Xenon-133 was given for ventilation images. 5.5 mCi Tc-99m MAA was administered int ravenously for perfusion images. Scintigraphic images of the chest were obtained. COMPARISON: Chest 2 views 09/13/2023 FINDINGS: Ventilation images demonstrate small defects in the upper lobes and lower lobes. There is retention o f radiotracer bilaterally. Perfusion images show no defects. IMPRESSION: 1. Normal perfusion. Reviewed, dictated and finalized at location E. IMPRESSION: 1. Normal perfusion.
--- NOTE | 2023-09-13 13:58 | ECG_ITS ---
Test Date: 2023-09-13 14:03:11 Measurements Intervals [place] Rate: 74 P: -41 MT: 193 QRS: -11 QRSD: 106 T: 78 QT: 374 QTc: 417 Interpretive Statements SINUS RHYTHM WITH SINUS ARRHYTHMIA INFERIOR MYOCARDIAL INFARCTION , OLD POOR R-WAVE PROGRESSION ABNORMAL ELECTROCARDIOGRAM No previous ECG available for comparison Electronically Signed On 09-14-2023 08:25:47 CDT by Rojelio Ahuja M.D.
[2023-09-13 14:21] LABS: Basophils Percent Auto 0.7 % (0.2-1.2); Eosinophils Absolute Auto 0.2 K/mm3 (0-0.3); Eosinophils Percent Auto 3.7 % (0-4.4); Hematocrit 42.1 % (37.0-47.0); Hemoglobin 14.4 g/dL (12.0-15.0); Immature Granulocyte Absolute 0.01 K/mm3 (0.00-0.031); Immature Granulocyte Percent A 0.2 % (0-0.5); Lymphocytes Absolute Auto 1.27 K/mm3 (0.9-3.2); Lymphocytes Percent Auto 21.3 % (18.3-44.2); Mean Corpuscular HGB Conc 34.2 g/dl (32-36); Mean Corpuscular Hemoglobin 31.2 pg (26-34); Mean Corpuscular Volume 91.3 fl (80-100); Mean Platelet Volume 9.8 fl (7.4-10.4); Monocytes Absolute Auto 0.5 K/mm3 (0.1-0.6); Monocytes Percent Auto 8.2 % (2.6-8.5); Neutrophils Absolute Auto 3.9 K/mm3 (1.3-6.7); Neutrophils Percent Auto 65.9 % (45.5-73.1); Platelet Count Result 222 k/mm3 (150-375); Red Blood Count 4.61 M/mm3 (4.2-5.4)
[2023-09-13 14:31] LABS: Alanine Aminotransferase 17 U/L (6-35); Albumin Level 4.1 g/dL (3.5-5.1); Alkaline Phosphatase 105 U/L (38-126); Anion Gap 6 mmol/L (4-12); Aspartate Amino Transferase 28 U/L (14-36); Bilirubin,Total 1.1 mg/dL (0.2-1.3); Blood Urea Nitrogen 24 mg/dL (7-17); Calcium 9.8 mg/dL (8.4-10.2); Carbon Dioxide 28 mmol/L (22-30); Chloride 105 mmol/L (98-107); Estimated CRCL calculation 31 ml/min; Estimated Glomerular Filt Rate 27; Glucose 89 mg/dL (65-110); Lipase 168 U/L (23-300); Potassium 4.5 mmol/L (3.4-5.0); Sodium 139 mmol/L (137-145)
[2023-09-13 14:32] LABS: Partial Thromboplastin Time 26.4 Seconds (22.3-36.8); Prothrombin Time 13.2 Seconds (11.1-14.7)
[2023-09-13 14:43] LABS: Troponin I < 0.012 ng/mL (0.000-0.034)
[2023-09-13] MEDS: ASPIRIN 81 MG CHEWABLE TABLET 324 MG PO (15:52)
--- NOTE | 2023-09-13 16:30 | ED.CHESTPAIN ---
HPI - Chest Pain General Chief Complaint: Chest Pain Stated Complaint: chest pressure Time Seen by Provider: 09/13/23 15:26 History of Present Illness HPI narrative: 73-year-old female presenting to the emergency department for evaluation of increased chest heaviness. Patient states this is exertional chest heaviness. Patient states this does occur with exercise. Patient feels her symptoms have been worsening over the course of the last 2 weeks. Patient has had some weight loss recently and did decrease her diltiazem. Patient states with exertion she does get some exertional chest tightness. Patient denies any specific pain but says it is a tightness and a pressure. Patient reports approximately year ago she did have a stress test which did show some blockage but no Angiocath was performed. Patient follows up with Dr. Virgen Related Data Home Medications Medication Instructions Recorded Confirmed aspirin 81 mg tablet,delayed 81 mg PO DAILY 07/12/20 09/05/23 release (Adult Low Dose Aspirin) latanoprost 0.005 % eye drops 1 drp LEFT EYE DAILY 01/10/22 09/05/23 brimonidine 0.2 %-timolol 0.5 % 1 drp EACH EYE Q12H 10/28/22 09/05/23 eye drops (Combigan) calcium carbonate-vitamin D3 500 tablet PO 10/28/22 09/05/23 mg(1,250 mg)-600 unit chewable tablet multivitamin (One Daily 1 tablet PO DAILY 10/28/22 09/05/23 Multivitamin tablet) mecobalamin (vitamin B12) 1,000 1,000 mcg sublingual DAILY 03/11/23 09/05/23 mcg disintegrating tablet,sublingual cholecalciferol (vitamin D3) 50 50 mcg PO DAILY 03/13/23 09/05/23 mcg (2,000 unit) capsule atorvastatin 20 mg tablet 20 mg PO DAILY 07/24/23 09/05/23 biotin 1 mg tablet 1 mg PO DAILY 09/05/23 09/05/23 Allergies Allergy/AdvReac Type Severity Reaction Status Date / Time Sulfa (Sulfonamide Allergy Nausea Verified 09/05/23 11:30 Antibiotics) Review of Systems Review of Systems: All systems reviewed & are unremarkable except as noted in HPI and below PMFSH Past Medical History Medical History (Updated 09/13/23 @ 18:37 by Vahe Thomas MD) Abnormal EKG Abnormal finding of blood chemistry Anxiety Arthritis Benign essential hypertension BMI 31.0-31.9,adult BMI 32.0-32.9,adult BMI 33.0-33.9,adult BMI 34.0-34.9,adult Cellulitis and abscess of face Chronic low back pain CKD (chronic kidney disease) Colon cancer screening Constipation Depressed mood Depression Diabetes Diastolic dysfunction 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), multiple sites DM type 2 (diabetes mellitus, type 2) Elevated glucose Elevated LFTs Elevated serum creatinine Encounter for preventive health examination Encounter for routine adult health examination with abnormal findings Encounter for routine adult health examination without abnormal findings Esophageal spasm Follow up Glaucoma Hammer toes of both feet Hammertoe of right foot Hearing loss Heart palpitations Hematuria, microscopic History of retinal tear HTN (hypertension) Hyperlipidemia Hypothyroidism (acquired) Laceration of skin of left lower leg Leukocytes in urine Light headedness Light sensitivity 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 Osteoporosis Primary osteoarthritis of both feet Sinus drainage Spider bite Supraventricular tachycardia UTI symptoms Vertigo Vitamin D deficiency Surgical History Surgical History H/O repair of rotator cuff H/O: hysterectomy History of knee replacement History of total right knee replacement Status post cataract extraction Family History Family History Sibling Acute myocardial infarction, Onset Age: 63 Patient's brother is Father Family history of heart disease in male family member before age 55 Acute myocardial infarction Mother Cerebrovascular accident Hypertension Other Family history of cardiovascul
[2023-09-13 16:45] LABS: D Dimer 0.71 ug/mL (<0.48)
[2023-09-13 18:02] LABS: Troponin I < 0.012 ng/mL (0.000-0.034)
--- NOTE | 2023-09-13 18:28 | PM.IMHP ---
H&P: HPI History of Present Illness Date/Time: 09/13/23 18:28 Chief Complaint: Chest pain Narrative: Mrs. De Leon is a 73-year-old female with a PMHx: HTN, diabetes, abnormal EKG, CKD, depression, presented to the emergency room with a complaint does chest heaviness episode that has been ongoing for the past 2 weeks. Patient reports she has been having a history of exertional chest pain heaviness she states that she has been able to perform her daily duties to include mild to moderate exercise but she has noticed increased chest tightness and pressure. She denies any SOB fever chills nausea vomiting. Patient reports a weight loss journey in the past several weeks citing she has lost over 28 lb she reports a history of a stress test approximately a year ago stating there was some blockage but no Angiocath was performed patient informs me she has a follow-up appointment with Dr. Virgen in January ED Work-up reveals: Initial vitals: b/p114/79, rr20 pr91 sp02 97 % on RAT:97.7, slightly elevated D-dimer, BUN 24, creatinine 1.8 patient has a history of CKD GFR is 27, CXR reveals no acute cardiopulmonary disease, pulmonary perfusion imaging reveals normal perfusion. Patient is afebrile with no leukocytosis stable hgb he, patient being admitted for further cardiac rule out pending stress test on Friday. 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), multiple sites DM type 2 (diabetes mellitus, type 2) Elevated glucose Elevated LFTs Elevated serum creatinine Encounter for preventive health examination Encounter for routine adult health examination with abnormal findings Encounter for routine adult health examination without abnormal findings Esophageal spasm Follow up Glaucoma Hammer toes of both feet Hammertoe of right foot Hearing loss Heart palpitations Hematuria, microscopic History of retinal tear HTN (hypertension) Hyperlipidemia Hypothyroidism (acquired) Laceration of skin of left lower leg Leukocytes in urine Light headedness Light sensitivity 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 Osteoporosis Primary osteoarthritis of both feet Sinus drainage Spider bite Supraventricular tachycardia UTI symptoms Vertigo Vitamin D deficiency Surgical History Surgical History H/O repair of rotator cuff H/O: hysterectomy History of knee replacement History of total right knee replacement Status post cataract extraction Family History Family History Sibling Acute myocardial infarction, Onset Age: 63 Patient's brother is Family history of cardiovascular disease Family history of coronary artery disease Father Family history of heart disease in male family member before age 55 Acute myocardial infarction Family history of cardiovascular disease Family history of coronary artery disease Mother Hypertension Cerebrovascular accident Social History Social History Smoking status: Never smoker Second hand tobacco smoke exposure: No Alcohol intake: never Substance use: never Substance use type: does not use Do You Feel Safe in your Home?: Yes Lack of Transportation: No Lack of Food: Never True Current Housing: I Have Housing Concerned About Future
--- NOTE | 2023-09-13 19:58 | ECG_ITS ---
Test Date: 2023-09-13 17:22:38 Measurements Intervals [place] Rate: 57 P: 52 [place]: 204 QRS: -11 QRSD: 105 T: 70 QT: 406 QTc: 398 Interpretive Statements SINUS BRADYCARDIA POOR R-WAVE PROGRESSION INFERIOR MYOCARDIAL INFARCTION , OLD ABNORMAL ECG Compared to ECG 09/13/2023 14:03:11 HEART RATE REDUCED, NO OTHER SIGNIFICANT CHANGE Electronically Signed On 09-14-2023 08:32:10 CDT by Rojelio Ahuja M.D.
[2023-09-13 20:22] LABS: Troponin I < 0.012 ng/mL (0.000-0.034)
--- NOTE | 2023-09-13 21:06 | ADMGEN ---
This patient, Elizabeth De Leon, was admitted to IMU Room 207-01 on 09/13/23 at 2044. Patient/family oriented to hospital policies and general routines including ID bracelet, bed and alarms, visiting hours, pain management, procedures, bathroom and other care routines, personal items, smoking policy, room service/diet, and visiting hours. Information on how to activate the Rapid Response Team has been discussed. Patient/Family are encouraged to report perceived risks to care and to ask questions if they do not understand what they are told or what they should do.
[2023-09-13] MEDS: HEPARIN SODIUM 5,000 UNITS/ML VIAL 5000 UNITS SUB-Q (23:59)
[2023-09-14] VITALS (14 sets, daily range): BP systolic 104–133; BP diastolic 56–81; PULSE 53–86; RESP 16–18; TEMP 35.9–36.2; O2SAT 96–100
[2023-09-14 00:01] LABS: Glucose Point of Care 107 mg/dl (65-105)
--- NOTE | 2023-09-14 00:38 | ECG_ITS ---
Test Date: 2023-09-14 00:46:28 Measurements Intervals [place] Rate: 53 P: -85 NE: 180 QRS: 22 QRSD: 106 T: 81 QT: 448 QTc: 423 Interpretive Statements SINUS BRADYCARDIA SUSPECT INFERIOR MYOCARDIAL INFARCTION [ OLD ABNORMAL ECG Compared to ECG 09/13/2023 17:22:38 NO SIGNIFICANT CHANGE Electronically Signed On 09-14-2023 08:44:20 CDT by Rojelio Ahuja M.D.
[2023-09-14 04:46] LABS: Basophils Percent Auto 0.5 % (0.2-1.2); Eosinophils Absolute Auto 0.2 K/mm3 (0-0.3); Eosinophils Percent Auto 3.4 % (0-4.4); Hematocrit 39.8 % (37.0-47.0); Hemoglobin 13.1 g/dL (12.0-15.0); Immature Granulocyte Absolute 0.01 K/mm3 (0.00-0.031); Immature Granulocyte Percent A 0.2 % (0-0.5); Lymphocytes Absolute Auto 2.13 K/mm3 (0.9-3.2); Lymphocytes Percent Auto 36.7 % (18.3-44.2); Mean Corpuscular HGB Conc 32.9 g/dl (32-36); Mean Corpuscular Volume 94.3 fl (80-100); Mean Platelet Volume 10.4 fl (7.4-10.4); Monocytes Absolute Auto 0.6 K/mm3 (0.1-0.6); Monocytes Percent Auto 9.5 % (2.6-8.5); Neutrophils Absolute Auto 2.9 K/mm3 (1.3-6.7); Neutrophils Percent Auto 49.7 % (45.5-73.1); Platelet Count Result 194 k/mm3 (150-375); Red Blood Count 4.22 M/mm3 (4.2-5.4); White Blood Count 5.8 K/mm3 (4.5-10.0)
[2023-09-14 05:01] LABS: Anion Gap 4 mmol/L (4-12); Blood Urea Nitrogen 26 mg/dL (7-17); Calcium 9.3 mg/dL (8.4-10.2); Carbon Dioxide 30 mmol/L (22-30); Chloride 107 mmol/L (98-107); Estimated CRCL calculation 33 ml/min; Estimated Glomerular Filt Rate 29; Glucose 78 mg/dL (65-110); Potassium 4.3 mmol/L (3.4-5.0); Sodium 141 mmol/L (137-145)
[2023-09-14] MEDS: LEVOTHYROXINE SODIUM 25 MCG TABLET PO (06:10)
[2023-09-14] MEDS: LEVOTHYROXINE SODIUM 112 MCG TABLET PO (06:10)
[2023-09-14] MEDS: MONTELUKAST SODIUM 10 MG TABLET PO (08:30)
[2023-09-14] MEDS: ASPIRIN 81 MG ENTERIC TABLET PO (08:30)
[2023-09-14] MEDS: MULTIVITAMINS THERAPEUTIC TAB (*BKC) 1 TABLET PO (08:30)
[2023-09-14] MEDS: ATORVASTATIN 20 MG TABLET PO (08:31)
[2023-09-14] MEDS: CHOLECALCIFEROL 1,000 UNITS TABLET 1000 UNITS PO (08:31)
[2023-09-14] MEDS: LOSARTAN POTASSIUM 50 MG TABLET PO (08:31)
[2023-09-14] MEDS: FLUoxetine HCL 20 MG CAPSULE PO (08:31)
[2023-09-14] MEDS: CALCIUM/VITAMIN D 500 MG/5 MCG (200 I.U.) TABLET PO (08:31)
[2023-09-14] MEDS: ASCORBIC ACID 500 MG TABLET 1000 MG PO (08:31)
[2023-09-14] MEDS: TIMOLOL MALEATE 0.5% OP SOLN 5 ML BOTTLE 1 DROP LEFT EYE ×2 (08:33→20:56)
--- NOTE | 2023-09-14 13:36 | PM.IMPN ---
Progress Note: A&P Assessment and Plan (1) Chest pain: Code(s): R07.9 - Chest pain, unspecified Status: Acute Assessment and Plan: -continue telemetry monitoring -consult cardiology in the ED -perfusion imaging lungs normal 09/13: Downgrade from IMU to Med/Tele Cardiology consult tomorrow Lexiscan Stress tomorrow, NPO at Midnight (2) Hyperlipidemia: Qualifiers: Hyperlipidemia type: mixed hyperlipidemia Qualified Code(s): E78.2 - Mixed hyperlipidemia Code(s): E78.5 - Hyperlipidemia, unspecified Status: Acute Assessment and Plan: -continue home medication (3) CKD (chronic kidney disease): Qualifiers: Chronic kidney disease stage: unspecified stage Qualified Code(s): N18.9 - Chronic kidney disease, unspecified Code(s): N18.9 - Chronic kidney disease, unspecified Status: Acute Assessment and Plan: creatinine is 1.8, baseline is 1.5 GFR is 27 -continue monitor strict I&O -recheck BMP in the a.m. (4) Diabetes mellitus with chronic kidney disease: Code(s): E11.22 - Type 2 diabetes mellitus with diabetic chronic kidney disease Status: Acute Assessment and Plan: -initiate hypoglycemic protocol -last A1c was 5.7 on 07/21/2023 -hold home metformin, may consider new therapy upon discharge due to ongoing CKD Plan Continue home medications: VTE Prophylaxis: Heparin subQ DIET:heart healthy Anticipated hospital stay: >2 days Code Status: [place] Spent With Patient Time with patient: Greater than 35 minutes Subjective Date/time seen: 09/14/23 13:36 Interval history: Patient admitted for chest discomfort/heaviness ongoing for 2 weeks, worse with activity and beginning to be associated with out of breath sensation with activity. Prior known coronary calcification. Prior stress test shows partial blockage per patient report but no history of [place]/Stent or Cath procedure. Patient admitted for serial troponin which are negative. Symptoms nearly gone with rest. EKGs with findings of prior inferior [place] but no STEMI. Discussed risks/benefit of discharge and outpatient Cardiology follow up vs staying for stress test tomorrow. Given worsening of symptoms I would lean for staying for Stress and Cardiology consult tomorrow. Patient agreeable with this plan. Review of Systems Review of Systems: All systems reviewed & are unremarkable except as noted in HPI and below Exam Narrative: General: Awake, alert, no distress HEENT: PERRL, EOMI. Oral mucosa moist. Neck: Supple. No midline cervical tenderness. Respiratory: Respirations are non- labored and lungs are clear to auscultation bilaterally. Cardiovascular: Regular rate and rhythm with S1-S2. Gastrointestinal: Abdomen is soft, non-tender, and non-distended with positive bowel sounds. Skin: Warm and dry. No rash or lesions on limited exam. Extremities: No cyanosis, clubbing, or edema. Radial and pedal pulses intact. Neurological: Alert and oriented. Cranial nerves 2-12 are grossly intact. No gross focal deficits to casual conversation. Psychiatric: Pleasant and cooperative with normal mood and affect. Judgment and insight intact. Objective Data Vital Signs Vital Signs: Vital Signs - 24 hr 09/13/23 14:16 09/13/23 15:45 09/13/23 15:54 Temperature 36.5 C Pulse Rate 91 79 Respiratory Rate 20 20 Blood Pressure 114/79 107/85 Pulse Oximetry 97 99 97 Oxygen Delivery Room Air Room Air 09/13/23 16:31 09/13/23 20:59 09/13/23 20:49 Temperature 36.0 C L Pulse Rate 73 77 79 Respiratory Rate 20 15 Blood Pressure 116/82 142/87 H Pulse Oximetry 97 99 Oxygen Delivery 09/13/23 22:00 09/13/23 20:50 09/14/23 00:00 Temperature 36.2 C L Pulse Rate 64 77 57 L Respiratory Rate 15 16 Blood Pressure 108/59 L Pulse Oximetry 99 98 Oxygen Delivery Room Air 09/14/23 00:00 09/14/23 00:00 09/14/23 02:00 Temperature Pulse Rate 57 L
--- NOTE | 2023-09-14 14:37 | PC.NURSE ---
This patient, Elizabeth De Leon, was transferred to [[id number] ] on 09/14/23 at 1430. Personal belongings sent with patient. Report given to [Gary OROZCO ]. Appropriate documentation sent with patient.
--- NOTE | 2023-09-14 15:14 | PC.NURSE ---
This patient, Elizabeth De Leon, was received from IMU on 09/14/23 at 1430. Patient/family oriented to unit policies and routines
[2023-09-14] MEDS: HEPARIN SODIUM 5,000 UNITS/ML VIAL 5000 UNITS SUB-Q (20:56)
[2023-09-14] MEDS: LATANOPROST 0.005% OP SOLN 2.5 ML BTL 1 DROP LEFT EYE (20:56)
[2023-09-14] MEDS: BRIMONIDINE TARTRATE 0.2% OP SOLN 5 ML BTL 1 DROP LEFT EYE (20:57)
[2023-09-15] VITALS: PULSE 65
--- NOTE | 2023-09-15 | EST_ITS ---
Patient Info Name: Elizabeth De Leon Age: 73 years : 1950 Gender: Female Ht: 70 in Wt: 215 lbs BSA: 2.22 m2 HR: 68 bpm BP: 131 / 84 mmHg Exam Date: 09/15/2023 11:19 AM Exam Location: Echo Lab Patient Status: Inpatient Admit Date: 09/13/2023 Staff Ordering Physician: Jigar Barksdale APRN Attending Provider: Paris Alarcon MD Exercise Technologist: Radha Alfredo [facility] Nurse: Aixa Joseph APN Exam Type: CA stress marisol w NM Study Info A regadenoson stress test was performed. Summary 1. Sinus rhythm with previous inferior wall infarction. 2. No ST or T-wave abnormalities following Lexiscan infusion. 3. Clinically and electrocardiographically uneventful Lexiscan stress test. 4. Myocardial perfusion imaging study to be reported by Radiology. Protocol: Lexiscan Stress ECG Details Stage: REST Duration (min): 2 min : 53 sec HR (bpm): 68 SBP (mmHg): 131 DBP (mmHg): 84 Stage: REST Duration (min): 4 min : 43 sec HR (bpm): 83 SBP (mmHg): 131 DBP (mmHg): 84 Stage: STAGE 1 Duration (min): 0 min : 59 sec HR (bpm): 85 SBP (mmHg): 115 DBP (mmHg): 85 Stage: RECOVERY Duration (min): 1 min : 0 sec HR (bpm): 101 SBP (mmHg): 115 DBP (mmHg): 85 Stage: RECOVERY Duration (min): 2 min : 0 sec HR (bpm): 91 SBP (mmHg): 115 DBP (mmHg): 85 Stage: RECOVERY Duration (min): 3 min : 0 sec HR (bpm): 87 SBP (mmHg): 106 DBP (mmHg): 73 Stage: RECOVERY Duration (min): 3 min : 38 sec HR (bpm): 96 SBP (mmHg): 106 DBP (mmHg): 73 Rest HR: 83 bpm Peak HR: 101 bpm Rest Sys BP: 131 mmHg Peak Sys BP: 115 mmHg Max Pred HR: 145 bpm % Max Pred HR: 70 % Target HR: 123 bpm Max RPP: 11,615 bpm*mmHg Termination Reason: Completed protocol Total Time: 1 min : 0 sec Rest Jean BP: 84 mmHg Peak Jean BP: 85 mmHg Total Dose: 0.4 mg Resting ECG Sinus rhythm with previous inferior wall infarction. Stress ECG No ST or T-wave abnormalities following Lexiscan infusion. Report Signatures
[2023-09-15 04:00] VITALS: PULSE 62
[2023-09-15 04:47] VITALS: BP 130/83; PULSE 83; RESP 16; TEMP 36.3; O2SAT 98
[2023-09-15 05:05] LABS: Basophils Percent Auto 0.5 % (0.2-1.2); Eosinophils Absolute Auto 0.2 K/mm3 (0-0.3); Eosinophils Percent Auto 3.6 % (0-4.4); Hematocrit 44.5 % (37.0-47.0); Hemoglobin 14.6 g/dL (12.0-15.0); Immature Granulocyte Absolute 0.01 K/mm3 (0.00-0.031); Immature Granulocyte Percent A 0.2 % (0-0.5); Lymphocytes Percent Auto 29.9 % (18.3-44.2); Mean Corpuscular HGB Conc 32.8 g/dl (32-36); Mean Corpuscular Hemoglobin 30.9 pg (26-34); Mean Corpuscular Volume 94.1 fl (80-100); Mean Platelet Volume 9.7 fl (7.4-10.4); Monocytes Absolute Auto 0.6 K/mm3 (0.1-0.6); Neutrophils Absolute Auto 3.6 K/mm3 (1.3-6.7); Neutrophils Percent Auto 56.8 % (45.5-73.1); Platelet Count Result 208 k/mm3 (150-375); Red Blood Count 4.73 M/mm3 (4.2-5.4); Red Cell Distribution Width 12.7 % (11.5-14.5); White Blood Count 6.4 K/mm3 (4.5-10.0)
[2023-09-15 05:16] LABS: Anion Gap 5 mmol/L (4-12); Blood Urea Nitrogen 26 mg/dL (7-17); Calcium 9.3 mg/dL (8.4-10.2); Carbon Dioxide 29 mmol/L (22-30); Chloride 106 mmol/L (98-107); Estimated CRCL calculation 33 ml/min; Estimated Glomerular Filt Rate 29; Glucose 86 mg/dL (65-110); Potassium 4.2 mmol/L (3.4-5.0); Sodium 140 mmol/L (137-145)
[2023-09-15] MEDS: LEVOTHYROXINE SODIUM 25 MCG TABLET PO (05:30)
[2023-09-15] MEDS: LEVOTHYROXINE SODIUM 112 MCG TABLET PO (05:31)
[2023-09-15 08:00] VITALS: PULSE 69
--- NOTE | 2023-09-15 08:08 | PM.IMPN ---
Subjective Date/time seen: 09/15/23 08:08 Objective Data Vital Signs Vital Signs: Vital Signs - 24 hr 09/14/23 08:19 09/14/23 10:00 09/14/23 11:00 Temperature Pulse Rate 61 Respiratory Rate Blood Pressure 124/74 Pulse Oximetry 96 Oxygen Delivery Room Air 09/14/23 11:00 09/14/23 12:00 09/14/23 14:00 Temperature Pulse Rate 72 63 Respiratory Rate Blood Pressure 108/77 Pulse Oximetry Oxygen Delivery 09/14/23 16:00 09/14/23 20:54 09/14/23 20:00 Temperature 35.9 C L 36.1 C L Pulse Rate 86 80 82 Respiratory Rate 18 16 Blood Pressure 111/65 133/81 Pulse Oximetry 97 99 Oxygen Delivery 09/14/23 20:00 09/15/23 00:00 09/15/23 04:47 Temperature 36.3 C L Pulse Rate 80 65 83 Respiratory Rate 16 16 Blood Pressure 130/83 Pulse Oximetry 99 98 Oxygen Delivery Room Air 09/15/23 04:00 Temperature Pulse Rate 62 Respiratory Rate Blood Pressure Pulse Oximetry Oxygen Delivery Intake/Output Intake/Output: Intake & Output 09/12/23 09/13/23 09/14/23 09/15/23 23:59 23:59 23:59 23:59 Intake Total 1255 250 Output Total 1725 Balance -470 250 Meds/Results Medications: Active Medications Generic Name Dose Route Start Last Admin Trade Name Freq PRN Reason Stop Dose Admin Acetaminophen 1,000 mg 09/13/23 22:59 Acetaminophen 500 Mg Tablet PO Q6H PRN Pain 1-3 or fever Ascorbic Acid 1,000 mg 09/14/23 09:00 09/14/23 08:31 Ascorbic Acid 500 Mg Tablet PO 1,000 mg DAILY JEFF Administration Aspirin 81 mg 09/14/23 09:00 09/14/23 08:30 Aspirin 81 Mg Enteric Tablet PO 81 mg DAILY JEFF Administration Atorvastatin Calcium 20 mg 09/14/23 09:00 09/14/23 08:31 Atorvastatin 20 Mg Tablet PO 20 mg DAILY JEFF Administration Brimonidine Tartrate 1 drop 09/14/23 23:15 09/14/23 20:57 Brimonidine Tartrate 0.2% Op Soln 5 Ml Btl LEFT EYE 1 drop Q12HR JEFF Administration Calcium Carbonate 500 mg 09/14/23 09:00 09/14/23 08:31 Calcium/Vitamin D 500 Mg/5 Mcg (200 I.U.) Tablet PO 10/14/23 08:59 500 mg DAILY JEFF Administration Dextrose 12.5 gm 09/13/23 23:08 Dextrose 50% 25 Gm/50 Ml Syringe IV PUSH PRN PRN Hypoglycemia Protocol Fluoxetine HCl 20 mg 09/14/23 09:00 09/14/23 08:31 Fluoxetine Hcl 20 Mg Capsule PO 20 mg DAILY JEFF Administration Glucagon 1 mg 09/13/23 23:08 Glucagon For Inj 1 Mg Vial IM PRN PRN Hypoglycemia Protocol Glucose 15 gm 09/13/23 23:08 Glucose Oral Gel 15 Gm Of Glucse In 37.5 Gm Tube PO PRN PRN Hypoglycemia Protocol Heparin Sodium (Porcine) 5,000 units 09/13/23 23:10 09/14/23 20:56 Heparin Sodium 5,000 Units/Ml Vial SUB-Q 5,000 units Q12HR JEFF Administration Dextrose 1,000 mls @ 100 mls/hr 09/13/23 23:08 Dextrose 5% 1,000 Ml IVPB PRN PRN Hypoglycemia Protocol Latanoprost 1 drop 09/14/23 21:00 09/14/23 20:56 Latanoprost 0.005% Op Soln 2.5 Ml Btl LEFT EYE 1 drop HS JEFF Administration Levothyroxine Sodium 25 mcg 09/14/23 06:30 09/15/23 05:30 Levothyroxine Sodium 25 Mcg Tablet PO 25 mcg DAILY@0630 JEFF Administration Levothyroxine Sodium 112 mcg 09/14/23 06:30 09/15/23 05:31 Levothyroxine Sodium 112 Mcg Tablet PO 112 mcg DAILY@0630 JEFF Administration Losartan Potassium 50 mg 09/14/23 09:00 09/14/23 08:31 Losartan Potassium 50 Mg Tablet PO 50 mg DAILY JEFF Administration Montelukast Sodium 10 mg 09/14/23 09:00 09/14/23 08:30 Montelukast Sodium 10 Mg Tablet PO 10 mg DAILY JEFF Administration Multivitamins Therapeutic 1 tablet 09/14/23 09:00 09/14/23 08:30 Multivitamins Therapeutic Tab (*Bkc) PO 1 tablet DAILY JEFF Administration Non-Formulary ( 2 each 09/14/23 09:00 09/14/23 20:57 Icosapent Ethyl 1 PO 10/14/23 08:59 2 each Gram Oral Capsule) Q12HR JEFF Administration Timolol Maleate 1 drop 09/13/23 23:00
[2023-09-15] MEDS: MULTIVITAMINS THERAPEUTIC TAB (*BKC) 1 TABLET PO (08:56)
[2023-09-15] MEDS: MONTELUKAST SODIUM 10 MG TABLET PO (08:56)
[2023-09-15] MEDS: CALCIUM/VITAMIN D 500 MG/5 MCG (200 I.U.) TABLET PO (08:56)
[2023-09-15] MEDS: ATORVASTATIN 20 MG TABLET PO (08:56)
[2023-09-15] MEDS: ASPIRIN 81 MG ENTERIC TABLET PO (08:56)
[2023-09-15] MEDS: ASCORBIC ACID 500 MG TABLET 1000 MG PO (08:56)
[2023-09-15] MEDS: TIMOLOL MALEATE 0.5% OP SOLN 5 ML BOTTLE 1 DROP LEFT EYE (08:57)
[2023-09-15] MEDS: CHOLECALCIFEROL 1,000 UNITS TABLET 1000 UNITS PO (08:57)
[2023-09-15] MEDS: LOSARTAN POTASSIUM 50 MG TABLET PO (08:57)
[2023-09-15] MEDS: BRIMONIDINE TARTRATE 0.2% OP SOLN 5 ML BTL 1 DROP LEFT EYE (08:57)
[2023-09-15] MEDS: FLUoxetine HCL 20 MG CAPSULE PO (08:57)
--- NOTE | 2023-09-15 10:30 | PC.NURSE ---
Patient of the unit to Nuclear Medicine
--- NOTE | 2023-09-15 12:35 | PM.CNCAR ---
Assessment and Plan Assessment and plan (1) Chest pain: Code(s): R07.9 - Chest pain, unspecified Status: Acute Assessment and Plan: Atypical chest pain with no objective evidence of ACS/plaque rupture. A lexiscan stress test has been performed earlier today. Further recommendations to follow review of that study. (2) Hyperlipidemia: Qualifiers: Hyperlipidemia type: mixed hyperlipidemia Qualified Code(s): E78.2 - Mixed hyperlipidemia Code(s): E78.5 - Hyperlipidemia, unspecified Status: Acute Assessment and Plan: Unless there is a contraindication I am unaware of, she should be on high intensity statin, 40-80mg of atorvastatin daily vs. the 20mg she takes now. (3) Coronary artery disease: Code(s): I25.10 - Atherosclerotic heart disease of [place] coronary artery without angina pectoris Status: Acute Assessment and Plan: Being managed medically with ASA, statin. Continue aggressive risk factor modification. Awaiting results of lexiscan. History of Present Illness History of Present Illness Consult date/time: 09/15/23 12:35 Requesting physician: Jigar Barksdale APRN Consult reason: chest pain Reason For Visit: Chest pain Narrative: Elizabeth De Leon is a 73 year old female with hypertension, hyperlipidemia, diabetes, and coronary artery disease. She comes to the emergency department with a chief complaint of chest tightness. This is a patient who has been seen in our office by Dr. Virgen because of her coronary artery disease. She had a nuclear stress test performed in 2022 that revealed a medium sized area of apical, apical lateral, and mid anterolateral ischemia. She was asymptomatic at that time (MPI had been ordered because of an elevated calcium score), therefore medical management was pursued. She has not followed up in our office since that time. Over the past two weeks she has noticed central chest heaviness that is not associated with any aggravating or alleviating factors. She does not have any other symptoms including shortness of breath, palpitations, radiation of the pain to any other locations. She is comfortable and free from any complaints at the time of my evaluation. 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), multiple sites DM type 2 (diabetes mellitus, type 2) Elevated glucose Elevated LFTs Elevated serum creatinine Encounter for preventive health examination Encounter for routine adult health examination with abnormal findings Encounter for routine adult health examination without abnormal findings Esophageal spasm Follow up Glaucoma Hammer toes of both feet Hammertoe of right foot Hearing loss Heart palpitations Hematuria, microscopic History of retinal tear HTN (hypertension) Hyperlipidemia Hypothyroidism (acquired) Laceration of skin of left lower leg Leukocytes in urine Light headedness Light sensitivity On [facility] drug therapy Osteoporosis Primary osteoarthritis of both feet Sinus drainage Spider bite Supraventricular tachycardia UTI symptoms Vertigo Vitamin D deficiency Surgical History Surgical History H/O repair of rotator cuff H/O: hysterectomy History of knee replacement History of total right knee replacement Status post cataract extraction Family History
[2023-09-15 14:00] VITALS: BP 108/73; PULSE 96; RESP 16; TEMP 36.1; O2SAT 97
--- NOTE | 2023-09-15 15:00 | PM.DS ---
DS: Admitting Diagnosis Discharge Date 09/15/2023 Admitting Diagnosis chest pain, BMI 31-31 point adult, hyperlipidemia, CKD, diabetes mellitus with CKD DS: Discharge Diagnosis Discharge Diagnosis (1) Chest pain: Qualifiers: Chest pain type: unspecified Qualified Code(s): R07.9 - Chest pain, unspecified Code(s): R07.9 - Chest pain, unspecified Status: Acute (2) Hyperlipidemia: Qualifiers: Hyperlipidemia type: mixed hyperlipidemia Qualified Code(s): E78.2 - Mixed hyperlipidemia Code(s): E78.5 - Hyperlipidemia, unspecified Status: Acute (3) CKD (chronic kidney disease): Qualifiers: Chronic kidney disease stage: unspecified stage Qualified Code(s): N18.9 - Chronic kidney disease, unspecified Code(s): N18.9 - Chronic kidney disease, unspecified Status: Acute (4) Diabetes mellitus with chronic kidney disease: Code(s): E11.22 - Type 2 diabetes mellitus with diabetic chronic kidney disease Status: Acute DS: Summary Hospital Course Hospital Course: This is a 73-year-old female patient admitted to the hospital with 2 weeks of chest pressure. Patient underwent cardiology consultation and workup that was negative for PE or acute coronary syndrome. Stress test was clear. Hospital stay was without incident and she was discharged stable condition to follow-up with primary care. Status at Discharge Cognitive/behavioral status at discharge: Awake alert oriented and pleasant Functional status at discharge: independent ambulation Overall status at discharge: patient is back to baseline Time Spent with Patient Time attestation: Total time spent providing and/or coordinating discharge services: 40 minutes Time spent: Greater than 30 minutes Exam Narrative: General: Awake, alert, no distress HEENT: PERRL, EOMI. Oral mucosa moist. Neck: Supple. No midline cervical tenderness. Respiratory: Respirations are non- labored and lungs are clear to auscultation bilaterally. Cardiovascular: Regular rate and rhythm with S1-S2. Gastrointestinal: Abdomen is soft, non-tender, and non-distended with positive bowel sounds. Skin: Warm and dry. No rash or lesions on limited exam. Extremities: No cyanosis, clubbing, or edema. Radial and pedal pulses intact. Neurological: Alert and oriented. Cranial nerves 2-12 are grossly intact. No gross focal deficits to casual conversation. Psychiatric: Pleasant and cooperative with normal mood and affect. Judgment and insight intact. DS: Data Data Completed and Pending Labs on day of discharge: Labs from last 24 hours 09/15/23 04:56 WBC 6.4 RBC 4.73 Hgb 14.6 Hct 44.5 MCV 94.1 MCH 30.9 MCHC 32.8 RDW 12.7 Plt Count 208 MPV 9.7 Immature Gran % (Auto) 0.2 Neut % (Auto) 56.8 Lymph % (Auto) 29.9 Morrill % (Auto) 9.0 H Eos % (Auto) 3.6 Baso % (Auto) 0.5 Lymph # (Auto) 1.90 Morrill # (Auto) 0.6 Eos # (Auto) 0.2 Baso # (Auto) 0.0 Abs Immat Gran (auto) 0.01 Absolute Neuts (auto) 3.6 Absolute Nucleated RBC 0.000 Nucleated RBC % 0.0 Sodium 140 Potassium 4.2 Chloride 106 Carbon Dioxide 29 Anion Gap 5 BUN 26 H Creatinine 1.70 H Estim Creat Clear Calc 33 Estimated GFR 29 L Glucose 86 Calcium 9.3 Imaging Radiologist's impression: EXAMINATION: NM marisol stress w perfusion DATE: 09/15/2023 14:28 INDICATION: Exertional chest pressure. Coronary artery disease. TECHNIQUE: Rest images were obtained following intravenous administration of 10 mCi Tc99m tetrofosmin (Myoview). The patient was infused intravenously with Lexiscan (Regadenoson). Then, 32 mCi Tc99m tetrofosmin (Myoview) was administered intravenously, and stress images were obtained. Data was reconstructed into short axis and horizontal and vertical long axis SPECT images. Gated SPECT images were also obtained. COMPARISON: None. FINDINGS: There is no definite reversible or fixed perfusion abnormality
== END 2023-09-15 16:50 | disposition home or self-care (01) ==
LOC: ANHED 18:37 → ANHIMU 20:13 → ANH3MED 09-14 14:22
PROVIDERS: Nurse Practitioner; Admitting Provider Hospitalist; Emergency Provider Emergency Medicine; PCP Internal Medicine; Visit Provider Hospitalist
DX: R07.9 Chest pain, unspecified (principal); I13.10 Hypertensive heart and chronic kidney disease without heart failure, with stage 1 through stage 4 chronic kidney disease, or unspecified chronic kidney disease; E11.22 Type 2 diabetes mellitus with diabetic chronic kidney disease; N18.9 Chronic kidney disease, unspecified; I25.10 Atherosclerotic heart disease of native coronary artery without angina pectoris; E78.2 Mixed hyperlipidemia; E03.9 Hypothyroidism, unspecified; F41.9 Anxiety disorder, unspecified; F32.A Depression, unspecified; M81.0 Age-related osteoporosis without current pathological fracture; E55.9 Vitamin D deficiency, unspecified; Z79.82 Long term (current) use of aspirin; Z79.84 Long term (current) use of oral hypoglycemic drugs
CPT/HCPCS: 36415; 71046; 78452; 78582; 80048; 80053; 82948; 83690; 84484; 85025; 85380; 85610; 85730; 93005; 93017; 96372; 99285; A9270; A9502; A9540; A9558; G0378; J1644; J2785

== ENCOUNTER 2023-10-16 13:48 | Outpatient (CLI) | payer BC, SELFPAY ==
--- NOTE | ~2023-10-16 | XR_ITS ---
EXAMINATION: XR UGI w barium swallow DATE: 10/16/2023 14:28 INDICATION: Chest pain TECHNIQUE: The patient drank thick barium, gas-producing crystals, and thin barium. Fluoroscopic spot radiographs of the hypopharynx, esophagus, stomach and proximal small bowel were obtained. Fluorosco py exposure time was minutes. COMPARISON: None. FINDINGS: The pharynx is symmetric and without evidence of mass lesion or mucosal irregularity. The esophagus i s normal without mass or stricture. Esophageal motility is within normal limits for age with weakenin g of the primary and secondary peristaltic waves resulting in some mild pooling of contrast from esop hagus. On the initial imaging there appear to be a sliding-type hiatal hernia with gastroesophageal j unction extending up to 4-6 cm cephalad to the level of the diaphragm. On subsequent imaging there is an abnormal contour to the proximal stomach with the flattened lumen of the gastric fundus appearing partially from the cardia and body of the stomach by an inward fold or invagination of the gastric wall. The configuration suggests that this portion of the stomach may remain above the diaph ragm either within the hiatal hernia or potentially as part of a paraesophageal hernia. Reflux of con trast was seen in the hiatal hernia and more proximally into the esophagus on the imaging obtained du ring the double contrast portion of the examination. Finding decompression of the gas within the stom ach, no further gastroesophageal reflux was able to be elicited with provocative maneuvers. Stomach. Otherwise normal with no evident ulcerations or masses. The proximal small bowel is normal. IMPRESSION: 1. Small to moderate-sized sliding-type hiatal hernia but essentially partially reducing with suggest ion of residual portion gastric fundus remaining above the diaphragm either within the hiatal hernia or is part of a paraesophageal hernia. Could consider further evaluation with endoscopy or CT to more definitively assess the anatomy. 2. Gastroesophageal reflux during the double contrast portion examination with the stomach distended with gas. Following decompression of the gas no further gastroesophageal reflux was able to be elicit ed with provocative maneuvers. Reviewed, dictated and finalized at location A. IMPRESSION: 1. Small to moderate-sized sliding-type hiatal hernia but essentially partially reducing with suggestion of residual portion gastric fundus remaining above th e diaphragm either within the hiatal hernia or is part of a paraesophageal michael ia. Could consider further evaluation with endoscopy or CT to more definitively assess the anatomy. 2. Gastroesophageal reflux during the double contrast portion examination with the stomach distended with gas. Following decompression of the gas no further g astroesophageal reflux was able to be elicited with provocative maneuvers.
== END 2023-10-16 13:49 | disposition home or self-care (01) ==
PROVIDERS: PCP Internal Medicine; Visit Provider Internal Medicine
DX: K22.4 Dyskinesia of esophagus (principal); K44.9 Diaphragmatic hernia without obstruction or gangrene; K21.9 Gastro-esophageal reflux disease without esophagitis; R07.89 Other chest pain
CPT/HCPCS: 74240

== ENCOUNTER 2023-12-09 01:39 | Day surgery (SDC) | payer BC, SELFPAY ==
--- NOTE | 2023-12-09 10:36 | WPDANESEPPF ---
Anes - Initial Pre Proc Eval Procedure: Operation Date: 12/09/23 13:00 Proposed Procedures p Esophagogastroduodenoscopy - Axel Nieto MD Date/Time: 12/09/23 10:36 Surgeon: Axel Nieto MD Pre Op Diagnosis: abn findings on dx imaging, GERD Patient Data Age: 73 Gender: F Height: 1.78 m Weight: 95 kg Allergies Allergy/AdvReac Type Severity Reaction Status Date / Time Sulfa (Sulfonamide Allergy Nausea Verified 12/02/23 13:18 Antibiotics) Home Medications Medication Instructions Recorded Confirmed Type aspirin 81 mg tablet,delayed 81 mg PO DAILY 07/12/20 12/02/23 History release (Adult Low Dose Aspirin) latanoprost 0.005 % eye drops 1 drp LEFT EYE HS 01/10/22 12/02/23 History brimonidine 0.2 %-timolol 0.5 % 1 drp LEFT EYE Q12H 10/28/22 12/02/23 History eye drops (Combigan) calcium carbonate-vitamin D3 500 1 tablet PO DAILY 10/28/22 12/02/23 History mg(1,250 mg)-600 unit chewable tablet multivitamin (One Daily 1 tablet PO DAILY 10/28/22 12/02/23 History Multivitamin tablet) icosapent ethyl 1 gram capsule 2 g PO BID #360 caps 08/19/23 12/02/23 Rx (Vascepa) biotin 1 mg tablet 1 mg PO DAILY 09/05/23 12/02/23 History acetaminophen 500 mg tablet 1,000 mg PO Q6H PRN Pain or fever 09/13/23 12/02/23 History (Tylenol Extra Strength) ascorbic acid (vitamin C) 1,000 mg 1 g PO DAILY 09/13/23 12/02/23 History tablet cholecalciferol (vitamin D3) 25 25 mcg PO DAILY 09/13/23 12/02/23 History mcg (1,000 unit) capsule fluoxetine 20 mg capsule 20 mg PO DAILY 09/13/23 12/02/23 History levothyroxine 125 mcg tablet 0.137 mcg PO QAM 09/13/23 12/02/23 History (Synthroid) losartan 50 mg tablet 50 mg PO DAILY 09/13/23 12/02/23 History montelukast 10 mg tablet 10 mg PO DAILY 09/13/23 12/02/23 History niacin 1,000 mg tablet,extended 1,000 mg PO DAILY 09/13/23 12/02/23 History release 24 hr atorvastatin 20 mg tablet 20 mg PO DAILY #90 tabs 10/02/23 12/02/23 Rx Xigduo XR 10 mg-1,000 mg 1 tablet PO DAILY #30 ea 11/04/23 12/02/23 Rx tablet,extended release (dapaglifloz propaned-metformin) Patient hx anesthesia problems: none Family hx anesthesia problems: none Results Review: All pre-operative results and documents have been reviewed as part of the pre-operative evaluation. [facility] Past Medical History Medical History (Updated 12/09/23 @ 10:37 by Kendall Chavarria DO) Abnormal EKG Abnormal finding of blood chemistry Anxiety Arthritis Benign essential hypertension BMI 31.0-31.9,adult BMI 32.0-32.9,adult BMI 33.0-33.9,adult BMI 34.0-34.9,adult Cellulitis and abscess of face Chronic low back pain CKD (chronic kidney disease) Colon cancer screening Constipation Coronary artery disease Depressed mood Depression Diabetes Diastolic dysfunction 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), multiple sites DM type 2 (diabetes mellitus, type 2) Elevated glucose Elevated LFTs Elevated serum creatinine Encounter for preventive health examination Encounter for routine adult health examination with abnormal findings Encounter for routine adult health examination without abnormal findings Esophageal spasm Follow up Glaucoma Hammer toes of both feet Hammertoe of right foot Hearing loss Heart palpitations Hematuria, microscopic History of retinal tear Hospital discharge follow-up HTN (hypertension) Hyperlipidemia Hypothyroidism (acquired) Laceration of skin of left lower leg Leukocytes in urine Light headedness Light sensitivity On fpc drug therapy Osteoporosis Primary osteoarthritis of both feet Sinus drainage Spider bite Supraventricular tachycardia UTI symptoms Vertigo Vitamin D deficiency Surgical History Surgical History H/O repair of rotator cuff H/O: hysterectomy History of knee replacement History of total right knee replacement Status p
[2023-12-09 11:38] VITALS: BP 127/90; PULSE 91; RESP 18; TEMP 36.6; O2SAT 97; BMI 30.9
[2023-12-09] MEDS: LACTATED RINGERS 1,000 ML 150 ML IV CONT (11:49)
[2023-12-09 11:56] LABS: Glucose Point of Care 93 mg/dl (65-105)
--- NOTE | 2023-12-09 11:56 | WPDHPUPDATE1 ---
History and Physical Update Update Date/Time: 12/09/23 11:56 History and Physical has been reviewed, including an updated exam of the patient. There are NO changes in the patient's condition. Risks, benefits, and alternatives have been discussed and questions answered. Patient agrees to proceed with procedure.
[2023-12-09 12:05] VITALS: BP 117/73; PULSE 70; RESP 20; O2SAT 97
[2023-12-09 12:15] VITALS: BP 115/66; PULSE 73; RESP 20; O2SAT 97
[2023-12-09 12:25] VITALS: BP 108/72; PULSE 69; RESP 20; O2SAT 97
== END 2023-12-09 12:45 | disposition home or self-care (01) ==
PROVIDERS: PCP Internal Medicine; Referring Provider Nurse Practitioner Family; Visit Provider Internal Medicine Gastroenterology
PROC: 0DJ08ZZ Inspection of Upper Intestinal Tract, Via Natural or Artificial Opening Endoscopic (ICD-10-PCS; CPT 43235; principal; 2023-12-09 13:00)
DX: K29.70 Gastritis, unspecified, without bleeding (principal); K44.9 Diaphragmatic hernia without obstruction or gangrene; I13.10 Hypertensive heart and chronic kidney disease without heart failure, with stage 1 through stage 4 chronic kidney disease, or unspecified chronic kidney disease; E11.22 Type 2 diabetes mellitus with diabetic chronic kidney disease; N18.9 Chronic kidney disease, unspecified; I25.10 Atherosclerotic heart disease of native coronary artery without angina pectoris; F41.9 Anxiety disorder, unspecified; F32.A Depression, unspecified; E78.5 Hyperlipidemia, unspecified; E03.9 Hypothyroidism, unspecified; H40.9 Unspecified glaucoma; E55.9 Vitamin D deficiency, unspecified; M81.0 Age-related osteoporosis without current pathological fracture; Z79.82 Long term (current) use of aspirin; Z79.84 Long term (current) use of oral hypoglycemic drugs; E66.9 Obesity, unspecified; Z68.31 Body mass index [BMI] 31.0-31.9, adult
CPT/HCPCS: 43239; 82948; 88305; J2704; J7120

== ENCOUNTER 2024-10-23 13:53 | Emergency (ER) | payer BC, SELFPAY ==
[2024-10-23] VITALS (16 sets, daily range): BP systolic 102–135; BP diastolic 67–80; PULSE 67–104; RESP 14–25; TEMP 36.4; O2SAT 95–100
--- NOTE | ~2024-10-23 | US_ITS ---
EXAMINATION: US abdomen limited DATE: 10/23/2024 17:07 INDICATION: abnl lfts, hyperbili TECHNIQUE: Multiple grayscale and Doppler ultrasound images of limited portions of the abdomen were o btained. COMPARISON: CT abdomen pelvis 12/05/2020. FINDINGS: The visualized portions of the pancreas are slightly echogenic. Small nodular liver with he terogeneous parenchyma. Normal hepatopetal flow in the main portal vein. Status post cholecystectomy The common bile duct measures 4 mm. Perihepatic and right lower quadrant fluid. IMPRESSION: Echogenic appearing pancreas, of doubtful clinical significance unless pancreatic labs are abnormal. Cirrhosis. Status post cholecystectomy. No common bile duct dilation. Ascites. Reviewed, dictated and finalized at location K. IMPRESSION: Echogenic appearing pancreas, of doubtful clinical significance unless pancreat ic labs are abnormal. Cirrhosis. Status post cholecystectomy. No common bile duct dilation. Ascites.
--- NOTE | ~2024-10-23 | XR_ITS ---
EXAMINATION: XR chest 2V Exam Date/Time: 10/23/2024 14:25 CDT HISTORY: shortness of breath Comparison: 09/13/2023. RESULT: Lines, tubes, and devices: Soft tissue anchors in the right humeral head. Lungs and pleura: Clear. Cardiomediastinal silhouette: Stable. Other: No acute osseous or upper abdominal finding. IMPRESSION: No acute cardiopulmonary process. Reviewed, dictated and finalized at location K.
--- NOTE | ~2024-10-23 | NM_ITS ---
EXAMINATION: NM lung vent and perfusion DATE: 10/23/2024 17:01 INDICATION: Chest pain, shortness of breath, positive d-dimer TECHNIQUE: The patient breathed 13.1 mCi xenon-133 for ventilation images. 4.88 mCi Tc-99m MAA was ad ministered intravenously for perfusion images. Scintigraphic images of the chest were obtained. COMPARISON: X-ray chest, same date; 09/13/2023 FINDINGS: The single breath ventilation image demonstrates normal ventilation. Ventilation washout images show no air trapping. Perfusion images show no focal defects. IMPRESSION: Low probability for pulmonary embolism. Reviewed, dictated and finalized at location K.
--- NOTE | 2024-10-23 13:55 | ECG_ITS ---
Test Date: 2024-10-23 14:06:04 Measurements Intervals [place] Rate: 97 P: 36 [place]: 225 QRS: -5 QRSD: 102 T: 39 QT: 340 QTc: 432 Interpretive Statements SINUS RHYTHM WITH FIRST DEGREE AV BLOCK CONSIDER ANTEROLATERAL INFARCT, AGE INDETERMINATE INFERIOR INFARCT, AGE INDETERMINATE BORDERLINE ST-T WAVE ABNORMALITY- HIGH LATERAL LEADS BASELINE ARTIFACT- I, II, III, AVR, AVL, AVF ABNORMAL ECG Compared to ECG 09/14/2023 00:46:28 HEART RATE HAS INCREASED Electronically Signed On 10-23-2024 14:45:15 CDT by Joshua Reed D.O.
--- OUTSIDE RECORDS SUMMARY | 2024-10-23 13:55 | XMS_ITS | Clinical Summary ---
Author Organization [facility] [employer] Address [address] [place] [address] Care Team Providers Care Creative Assistant Name Role Phone Unavailable Primary Care Provider Unavailabl e Source Comments [facility] [employer],non-owned Affiliates and Associated Physician Practices is amultiple site organization consisting of ambulatory clinics and hospital sitesin [place], [place], [place] and [place]. This disclosure is being madepursuant to the Care Everywhere program and may not contain all information available regarding this patient. Last updated 17.Verid [employer] Allergies No known active allergies Medications * Be aware that medications may not be up to date on this document. Alwaysverify current medications with the patient. rosiglitazone (AVANDIA) 2 MG tablet Take 2 mg by mouth daily. Active levothyroxine (SYNTHROID) 137 MCG tablet Take 137 mcg by mouth daily before breakfast. Active PROZAC PO Take by mouth. As directed Active METFORMIN HCL PO Take by mouth. As directed Active lisinopril (PRINIVIL;ZESTR IL) 5 MG tablet Take 5 mg by mouth daily. Active atorvastatin (LIPITOR) 20 MG tablet Take 20 mg by mouth at bedtime. Active niacin CR (NIASPAN) 1000 MG tablet Take 1000 mg by mouth at bedtime. Active montelukast (SINGULAIR) 10 MG tablet Take 10 mg by mouth at bedtime. Active MUCINEX D PO Take by mouth. As directed Active aspirin 81 MG tablet Take 81 mg by mouth daily. Active FISH OIL PO Take by mouth. As directed Active VITAMIN C PO Take by mouth. As directed Active CALCIUM + D PO Take by mouth. As directed Active Active Problems Problem Noted Date Diagnosed Date Neck pain 06/29/2009 Family History Medical History Relation Name Comments Arthritis - Osteo Brother 2 Arthritis - Osteo Father CAD (Coronary Artery Disease) Father Arthritis - Osteo Mother Hypertension Mother Stroke Mother Seizures Paternal Grandfather Relation Name Status Comments Brother 1 Alive Brother 2 Father Alive Mother Alive Paternal Grandfather Social History Tobacco Use Types Packs/Day Years Used Date Smoking Tobacco: Never Alcohol Use Standard Drinks/Week Comments Yes 0 (1 standard drink = 0.6 oz pur e alcohol) Comments No Sex and Gender Information Value Date Recorded Sex Assigned at Not on file 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 Gender Identity Not on file Sexual Orientation Not on file Occupation Industry Job Start Date Job End Date Retired Not on file Not on file Not on file Last Filed Vital Signs Vital Sign Reading Time Taken Comments Blood Pressure - - Pulse - - Temperature - - Respiratory Rate - - Oxygen Saturation - - Inhaled Oxygen Concentration - - Weight 127 kg (280 lb) 07/10/2009 3:18 PM CDT Height 180.3 cm (5' 11) 07/10/2009 3:18 PM CDT Body Mass Index 39.05 07/10/2009 3:18 PM CDT Plan of Treatment Health Maintenance Due Date Last Done Comments BONE DENSITY TESTING 1950 HEPATITIS C SCREENING 02/21/1966 DTAP/TDAP/TD VACCINES (1 - Tdap) 02/25/1967 PNEUMOCOCCAL VACCINE 50+ (1 of 1 - PCV) 02/25/1998 ZOSTER VACCINE (1 of 2) 02/25/1998 Respiratory Syncytial Virus (RSV) Vaccine Pt: or over 60 yrs (1 - 1-dose 75+ series) 02/25/2023 COVID-19 VACCINE ( - 2023-2 5 season) 2023 DEPRESSION SCREENING 03/24/2024 INFLUENZA VACCINE (#1) 2024 HEPATITIS B VACCINE Aged Out No longe r eligible based on patient's age to complete this topic HIB VACCINE Aged Out No longer eligi ble based on patient's age to complete this topic HPV VACCINE Aged Out No longer eligi ble based on patient's age to complete this topic MENINGOCOCCAL (Group B) VACC INE SHARED DECISION-MAKING Aged Out No longer eligibl e based on patient's age to complete this topic MENINGOCOCCAL GROUPS A/C/Y/W VACCINE Aged Out No longer eligible b ased on patient's age to complete this topic Insurance [facility] SELF PAY NO INSURANCE Member Subscriber Plan / Payer (Ef fective for All Dates) Name:Leopoldo De Leon Homero Member ID:Not on file Relation to Subscriber:Not on file Name:LEOPOLDO DE LEON I Subscriber ID:Not on file (Home) [facility] [place] [address] Payer ID:Not on file Group ID:Not on file Type:Self Pay Address: [facility]
--- OUTSIDE RECORDS SUMMARY | 2024-10-23 13:55 | XMS_ITS | Continuity of Care Document ---
Author Organization [facility] Address [address] [facility] [address] [place] [address] Phone Care Team Providers Care Lane Attendant Name Role Phone Gilbert Leo MD Unavailable [...] Copied on Encounter [facility], [address] [place] [address], [id number], tel:[phone] [facility] No Information 5 Ahmet Hunt. [address] [place] [address], [id number], [place]. tel:[phone] Referring Provider: Kapil Cassidy MD, [address], [place], [place], [facility]. tel:[phone] OFFICE/OUTPA TIENT VISIT, EST [facility], [address] [place] [address], [id number], tel:[phone] [facility] Ocular Hypertension (chief complaint)Gla ucoma (chief complaint)Nidia betic eye exam (chief complaint) Bilateral ocular hypertension Malignant glaucoma of left eyePseudopha isis of both eyesMeibomia n gland dysfunction (MGD) of both eyes 5 Ahmet Hunt. [address] [place] [address], [id number], . tel:[phone] Referring Provider: Kapil Cassidy MD, [address], [place], [address]. tel:[phone] [facility], [address] [place] [address], [id number], [place] tel:[phone] [facility] No Information Dec-0 4 Marizol Fields. [address] [place] [address], [id number], [place]. tel:[phone] [facility], [address] [place] [address], [id number], tel:[phone] [facility] No Information Oct-0 4 Ahmet Hunt. [address] [place] [address], [id number], [place]. tel:[phone] OFFICE/OUTPA TIENT VISIT, EST [facility], [address] [place] [address], [id number], [place] tel:[phone] [facility] Glaucoma, followup (chief complaint)Nidia betic eye exam (chief complaint) Bilateral ocular hypertension Malignant glaucoma of left eyePseudopha isis of both eyesMeibomia n gland dysfunction (MGD) of both eyes 4 Ahmet Gilbert. [address] [place] [address], [id number], [place]. tel:[phone] Referring Provider: Gilbert Leo, [address] [place] [address], [id number]. tel:[phone] OFFICE/OUTPA TIENT VISIT, EST [facility], [address] [place] [address], [id number], [place] tel:[phone] [facility] Glaucoma, followup (chief complaint)Nidia betic eye exam (chief complaint) Bilateral ocular hypertension Malignant glaucoma of left eyePseudopha isis of both eyesMeibomia n gland dysfunction (MGD) of both eyes 3 Ahmet Hunt. [address] [place] [address], [id number], [place]. tel:[phone] Referring Provider: Kapil Cassidy MD, [address], [place], [address]. tel:[phone] [facility], [address] [place] [address], [place], [place], [id number], [place] tel:[phone] [facility] No Information Dec-2 2 Maksim Rey. [address] [facility], [address], [place], [place], [id number], [place]. tel:[phone] Referring Provider: Franki Wagner, [address] [facility] , [place], [address]. tel:[phone] OFFICE/OUTPA TIENT VISIT, EST [facility], [address] [place] [address], [id number], tel:[phone] [facility] decreased vision (chief complaint)OHT (chief complaint)typ e II DM (chief complaint) Other secondary cataract, right eyeBilateral ocular hypertension Malignant glaucoma of left eyePseudopha isis of both eyesMeibomia n gland dysfunction (MGD) of both eyes Oct-0 2 Maksim Rey. [address] [facility], [address], [place], [place], [id number], [place]. tel:[phone] Referring Provider: Kapil Cassidy MD, [address], [place], [address]. tel:[phone] OFFICE/OUTPA TIENT VISIT, EST [facility], [address] [place] [address], [id number], tel:[phone] [facility] Occular Hypertension (chief complaint)Nidia betic eye exam (chief complaint) Bilateral ocular hypertension Malignant glaucoma of left eyePseudopha isis of both eyesMeibomia n gland dysfunction (MGD) of both eyes 2 Ahmet Hunt. [address] [place] [address], [id number], [place]. tel:[phone] Referring Provider: Gilbert Leo, [address] [place] [address], [id number]. tel:[phone] OFFICE/OUTPA TIENT VISIT, EST [facility], [address] [place] [address], [id number], tel:[phone] [facility] Blurry vision (chief complaint)Gla ucoma, followup (chief complaint) Bilateral ocular hypertension Malignant glaucoma of left eyePseudopha isis of both eyesMeibomia n gland dysfunction (MGD) of both eyes 1 Ahmet Hunt. [address] [place] [address], [id number], [place]. tel:[phone] Referring Provider: Gilbert Ahmet, [address] [facility], [place], [address]. tel:[phone] OFFICE/OUTPA TIENT VISIT, [facility], [address] [place] [address], [place], [place], [id number], [place] tel:[phone] [facility] open angle glaucoma (chief complaint) Aqueous misdirection of left eyePseudoaph akiaOpen angle with borderline findings, low risk, bilateral 1 Cuong Diez. [address] [facility], [address], [place], [address], [place]. tel:[phone] Referring Provider: Kapil Cassidy MD, [address], [place], [address]. tel:[phone] [facility], [address] [place] [address], [id number], [place] tel:[phone] [facility] follow up (chief complaint) Aqueous misdirection of left eye 1 Cuong Diez. [address] [facility], [address], [place], [address], [place]. tel:[phone] Referring Provider: Kapil Cassidy MD, [address], [place], [address]. tel:[phone] [facility], [address] [place] [address], [place], [place], [id number], [place] tel:[phone] [facility] Post-Op (chief complaint) Aqueous misdirection of left eye 0 Cuong Diez. [address] [facility], [address], [place], [address], [place]. tel:[phone] Referring Provider: Kapil Cassidy MD, [address], [place], [address]. tel:[phone] [facility], [address] [place] [address], [place], [place], [id number], [place] tel:[phone] [facility] Post-Op (chief complaint) Aqueous misdirection of left eye 0 Cuong Diez. [address] [facility], [address], [place], [address], [place]. tel:[phone] Referring Provider: Kapil Cassidy MD, [address], [place], [address]. tel:[phone] [facility], [address] [place] [address], [place], [place], [id number], [place] tel:[phone] [facility] No Information 0 Cuong Diez. [address] [place] [address], [address], [place], [address], [place]. tel:[phone] Referring Provider: Rg Rdz, [id number] [place] [address] [address], [place], [address]. tel:[phone] OFFICE/OUTPA TIENT VISIT, EST [facility], [address] [place] [address], [place], [place], [id number], [place] tel:[phone] [facility] Aqueous Misdirection (chief complaint) Aqueous misdirection of left eyeOpen angle with borderline findings, low risk, bilateralPse udoaphakia 0 Cuong Diez. [address] [facility], [address], [place], [address], [place]. tel:[phone] Referring Provider: Kapil Cassidy MD, [address], [place], [address]. tel:[phone] OFFICE/OUTPA TIENT VISIT, EST [facility], [address] [place] [address], [place], [place], [id number], [place] tel:[phone] [facility] Punctate Keratitis f/u (chief complaint)DMI I (chief complaint) Type 2 diabetes without complication Bilateral keratoconjun ctivitis sicca, not specified as Sjogren'sPse udoaphakiaAn atomical narrow angle, left eye Oct-3 0 Cuong Diez. [address] [facility], [address], [place], [address], [place]. tel:[phone] Referring Provider: Franki Wagner, [facility] , [place], [address]. tel:[phone] OFFICE/OUTPA TIENT VISIT, EST [facility], [address] [place] [address], [place], [place], [id number], [place] tel:[phone] [facility] F/U Punctate Keratitis (chief complaint) Punctate keratitis of left eyePseudoaph akiaPain around left eye 9 Derheimer OD Sonia. [address], [address], [place], [place], [id number], [place]. tel:[phone] Referring Provider: Sonia Kramer OD, [address], [place], [address]. tel:[phone] OFFICE/OUTPA TIENT VISIT, EST [facility], [address] [place] [address], [place], [place], [id number], [place] tel:[phone] [facility] trouble with ctls (chief complaint) Pseudoaphaki aPain around left eyePunctate keratitis of left eyeAcute atopic conjunctivit is, left eye 9 Derheimer OD Sonia. [address] [facility], [address], [place], [place], [id number], [place]. tel:[phone] Referring Provider: Candido Garcia, [address], [place], [address]. tel:[phone] [facility], [address] [place] [address], [id number], [place] tel:[phone] [facility] Post-Op (chief complaint) Presence of intraocular lens 9 Maksim Rey. [address], [address], [place], [place], [id number], [place]. tel:[phone] Referring Provider: Candido Garcia, [address], [place], [address]. tel:[phone] [facility], [address] [place] [address], [id number], tel:[phone] [facility] post op (chief complaint) Pseudoaphaki a 9 Williams OD Sonia. [address], [address], [place], [place], [id number], [place]. tel:[phone] Referring Provider: Sonia Kramer OD, [address], [place], [address]. tel:[phone] [facility], [address] [place] [address], [id number], tel:[phone] [facility] post op (chief complaint) Presence of intraocular lens 9 Maksim Rey. [address], [address], [place], [place], [id number], [place]. tel:[phone] Referring Provider: Candido Garcia, [address], [place], [address]. tel:[phone] [facility], [address] [place] [address], [id number], [place] tel:[phone] [facility] No Information 9 Maksim Rey. [address], [address], [place], [place], [id number], [place]. tel:[phone] Referring Provider: Candido Garcia, [address], [place], [address]. tel:[phone] [facility], [address] [place] [address], [id number], [place] tel:[phone] [facility] MR (chief complaint) No Information 9 Maksim Rey. [address], [address], [place], [place], [id number], [place]. tel:[phone] Referring Provider: Candido Garcia, [address], [place], [address]. tel:[phone] [facility], [address] [place] [address], [id number], tel:[phone] [facility] Post-Op (chief complaint) Pseudoaphaki a 9 Derheimer OD Sonia. [address], [address], [place], [place], [id number], [place]. tel:[phone] Referring Provider: Candido Garcia, [address], [place], [address]. tel:[phone] [facility], [address] [place] [address], [id number], [place] tel:[phone] [facility] [place] No Information 8 Maksim Rey. [address], [address], [place], [place], [id number], [place]. tel:[phone] Referring Provider: Candido Garcia, [address], [place], [address]. tel:[phone] [facility], [address] [place] [address], [id number], [place] tel:[phone] [facility] post op (chief complaint) Anatomical narrow angle, bilateral 8 Maksim Rey. [address], [address], [place], [place], [id number], [place]. tel:[phone] Referring Provider: Candido Garcia, [address], [place], [address]. tel:[phone] [facility], [address] [place] [address], [id number], tel:[phone] [facility] [place] No Information 8 Maksim Rey. [address], [address], [place], [place], [id number], . tel:[phone] Referring Provider: Candido Garcia, [address], [place], [address]. tel:[phone] [facility], [address] [place] [address], [id number], tel:[phone] [facility] [place] No Information 8 Maksim Rey. [address], [address], [place], [place], [id number], [place]. tel:[phone] Referring Provider: Candido Garcia, [address], [place], [address]. tel:[phone] OFFICE/OUTPA TIENT VISIT, [facility], [address] [place] [address], [id number], tel:[phone] [facility] cataract eval (chief complaint) Age-related nuclear cataract, bilateralTyp e 2 diabetes without complication Squamous blepharitis left lower eyelidDermat ochalasis of left upper eyelidBilate ral keratoconjun ctivitis sicca, not specified as Sjogren's 8 Maksim Rey. [address], [address], [place], [place], [id number], [place]. tel:[phone] Referring Provider: Candido Garcia, [address], [place], [address]. tel:[phone] Family History Family Member Type Diagnosis Age At Onset Father Problem Cardiovascular disease Brother Problem Cardiovascular disease Payers Payer name Insurance type Covered constitution party ID Authoriza tion(s) [facility] [id number] Social History Type Description Quantity Date Captured Comments Sex Female Smoking Status No Information Chief Complaint And Reason For Visit No Information Reason For Referral Reason For Referral No Information Plan Of Treatment Date Type Action Status Referral Ordered: Daryl Doan -[facility] Providers : Fondant Machine Operator (related to Aqueous misdirection of left eye) ordered Referral Ordered: Daryl Doan -[facility] Providers : Fondant Machine Operator (related to Aqueous misdirection of left eye) ordered Referral Referred To: Daryl Doan [address] [facility] [place], [phone] Ordered: Referrals: [facility] Providers : Fondant Machine Operator. Daryl Doan ordered Referral Ordered: Ole Kimball -Ophthalmology (related to Pseudoaphakia) ordered Referral Referred To: Ole Kimball [address] [facility] [address] [place], [phone] Ordered: Referrals: Ophthalmology. Ole Kimball. Evaluate and treat ordered Appointment Elizabeth De Leon BOOKED Future Order: Radiology Order Ze iss Clarus 700. ([id number]), Sent on: Sent History Of Present Illness [...] exam sent to Dr. Bassem Brito @ [facility] Post-Op Additional infor mation: Pt presents for [...] is stable. Pt uncertain of BS or [id number]--zmni she is borderlineReferring: Dr. Cassidy (PCP) Punctate [...] high pressures being high. Dr. Franki Brito (Police Detention Attendant ) gave her Combigan bid OS only, [...] Related to Pseud ophakia of both eyes Return to Dr Ahmet gil 6 months for OPTOS and HVF 24-2 Related to Bilateral ocular hypertension Impression/Plan Related to 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 Impression/Plan Related to Bilat eral ocular hypertension Impression/Plan Related to Malig nant glaucoma of left eye Impression/Plan Related to Pseud ophakia of both eyes Impression/Plan Related to Aqueo us misdirection of [...] Related to Pseud oaphakia Impression/Plan Related to Punct ate keratitis of left eye Impression/Plan Related to Pain around left eye Impression/Plan Related to Prese nce of intraocular lens Impression/Plan Related to Pseud oaphakia Impression/Plan Related to Prese nce of intraocular lens Impression/Plan Related to Pseud oaphakia Impression/Plan Related to Anato mical narrow angle, bilateral Impression/Plan Related to Age-r elated nuclear cataract, bilateral Impression/Plan Related to Bilat eral keratoconjunctivitis sicca, not specified as Sjogren's Impression/Plan Related to [place] tochalasis of left upper eyelid Impression/Plan Related to Squam ous blepharitis left lower eyelid Impression/Plan Related to Type 2 diabetes without complication Assessments Type Assessment Date No Information Patient Care Teams Name Effective Dates (start - stop) Status Members No Information
--- OUTSIDE RECORDS SUMMARY | 2024-10-23 13:55 | XMS_ITS | Continuity of Care Document ---
Author Organization [facility] [place] [address] [place] [address] Phone Care Team Providers Care Subassembly Supervisor Name Role Phone Lopez OD, Temo Unavailable Unavailable Procedures Procedure Date CL Replacement - Taran Other 7 Tax - Medical CL Replacement - Vistakon Disp W/BW Soft Tax - Medical Eye Exam & Treatment Refraction Advance Directives Directive Yes / No Effective Date File Name No Information Encounters Encounter Description Practice Location Reason(s) For Visit Diagnoses Date Provider Providers Copied on Encounter [facility], [address] [place] [address] [address], [place], [place], [id number], [place] tel:[phone] [facility] No Information Dec- 5-200 7 Lopez OD Temo. [address] [facility] , [address], [place], [place], [facility], [place]. tel:[phone] [facility], [address] [place] [address] [address], [place], [place], [id number], [place] tel:[phone] [facility] No Information July-0 7-200 7 Lopez OD Temo. [address] [facility] [address] [facility] , [address], [place], [address], [place]. tel:[phone] [facility], [address] [place] [address] [address], [place], [place], [id number], tel:[phone] [facility] No Information May-0 1-200 7 Lopez OD Temo. [address] [facility] , [address], [place], [address], [place]. tel:[phone] Referring Provider: Kapil Cassidy MD C, [address], [place], [address]. tel:[phone] Family History Family Member Type Diagnosis Age At Onset No Information Payers Payer name Insurance type Covered alliance party ID Authoriza tion(s) No Information Social History [...]
--- OUTSIDE RECORDS SUMMARY | 2024-10-23 13:55 | XMS_ITS | Clinical Summary ---
Author Organization [facility] Address [address] [place] [address] Care Team Providers Care Casing Crew Name Role Phone Kapil Cassidy MD Primary Care Provider + [phone] Allergies No known active allergies Medications vitamin D3, cholecalciferol , 5000 UNITS capsule Take 1 capsule by mouth daily. Active vitamin B-12 (CYANOCOBALAMIN ) 100 MCG tablet Take 50 mcg by mouth daily. Active Multiple Vitamin (MULTIVITAMIN ADULT OR) Take 1 tablet by mouth daily. Active atorvastatin (LIPITOR) 20 MG tablet Take 20 mg by mouth daily. Active FLUoxetine (PROZAC) 20 MG capsule Take 20 mg by mouth daily. Active dilTIAZem XR (DILACOR XR) 180 MG 24 hr capsule Take 180 mg by mouth daily. Active levothyroxine (SYNTHROID) 125 MCG tablet Take 125 mcg by mouth every morning. Active niacin CR (NIASPAN) 1000 MG tablet Take 1,000 mg by mouth daily. Active omega-3 fatty acid (FISH OIL) 500 MG capsule Take 1,000 mg by mouth 2 (two) times a day. Active Calcium Carb-Cholecalci ferol (CALCIUM 1000 + D OR) Take 1 tablet by mouth daily. Active losartan (COZAAR) 50 MG tablet Take 50 mg by mouth daily. Active aspirin EC (ECOTRIN) 81 MG tablet Take 81 mg by mouth daily. Active montelukast (SINGULAIR) 10 MG tablet Take 10 mg by mouth nightly at bedtime. Active brimonidine-birgit olol (COMBIGAN) 0.2-0.5 % ophthalmic solution Place 1 drop into the left eye every 12 (twelve) hours. Active latanoprost (XALATAN) 0.005 % ophthalmic solution Place 1 drop into the left eye nightly at bedtime. Active Family History Medical History Relation Comments Heart Attack Brother Heart Attack Father Hypertension Mother Relation Status Comments Brother Father Alive Mother Alive Social History Tobacco Use Types Packs/Day Years Used Date Smoking Tobacco: Never Smokeless Tobacco: Never Alcohol Use Standard Drinks/Week Comments Not Currently 0 (1 standard drink = 0.6 oz pur e alcohol) Comments No Sex and Gender Information Value Date Recorded Sex Assigned at Not on file Legal Sex Female 10:28 AM CDT Gender Identity Not on file Sexual Orientation Not on file Last Filed Vital Signs Vital Sign Reading Time Taken Comments Blood Pressure 107/67 10/09/2021 10:02 AM CDT Pulse 63 10/09/2021 10:02 AM CDT Temperature 36.9 C (98.4 F) 10/09/2021 10:02 AM CDT Respiratory Rate 18 10/09/2021 10:02 AM CDT Oxygen Saturation 98% 10/09/2021 10:02 AM CDT Inhaled Oxygen Concentration - - Weight 109 kg (240 lb 4.8 oz) 10/09/2021 6:23 AM CDT Height 177.8 cm (5' 10) 10/09/2021 6:23 AM CDT Body Mass Index 34.48 10/09/2021 6:23 AM CDT Plan of Treatment Health Maintenance Due Date Last Done Comments Hepatitis C 02/25/1966 DTaP, Tdap and Td Vaccines (1 - Tdap) 02/25/1967 Zoster Vaccines (1 of 2) 02/25/1998 Dexa Scan (General) 02/25/2013 Pneumococcal Vaccine: 50+ Years (2 of 2 - PPSV23) 03/21/2018 03/21/2017 RSV Immunization or 60+ Years (1 - 1-dose 75+ series) 02/25/2023 COVID-19 Vaccine ( season) 2023 07/02/2021, 12/18/2020, 06/02/2020, Additional history exists Meningococcal B Vaccine Aged Out No l onger eligible based on patient's age to complete this topic Meningococcal Vaccine Aged Out No janki mary eligible based on patient's age to complete this topic RSV Immunizations Under 20 Months Aged Out No longer eligible based on patient's age to complete this topic Medical Devices Implanted Type Area Radial Drill Operator For Plastic Device Identifier Shelf Expiration Date Model / Serial / Lot Wire Fixation [employer] L9 In Od.045 In 2 Tr - [id number] Implanted:Qty: 3 on 10/09/2021 by William Kathleen DPM at [facility] Wire Right: Foot [employer] [id number] / / Description:2nd, 3rd,4th toe fixation Insurance [facility] Care Teams Casing Crew Relationship Specialty Start Date End Date Kapil Cassidy MD [address] - [facility] [address] [place] [address] PCP - General INTERNAL MEDICINE 10/02/21
[2024-10-23 14:12] LABS: Hematocrit 47.0 % (37.0-47.0); Hemoglobin 15.4 g/dL (12.0-15.0); Immature Granulocyte Percent A 0.2 % (0-0.5); Lymphocytes Absolute Auto 1.85 K/mm3 (0.9-3.2); Mean Corpuscular HGB Conc 32.8 g/dl (32-36); Mean Corpuscular Hemoglobin 30.7 pg (26-34); Mean Corpuscular Volume 93.6 fl (80-100); Nucleated Red Blood Cells Absolute Auto 0.000 K/mm3 (0.0-0.012); Nucleated Red Blood Cells Perc 0.0 % (0.0-0.2); Platelet Count Result 189 k/mm3 (150-375); Red Blood Count 5.02 M/mm3 (4.2-5.4); White Blood Count 5.1 K/mm3 (4.5-10.0)
--- NOTE | 2024-10-23 14:18 | ED_ITS ---
HPI - SOB/Dyspnea General Chief Complaint: Shortness of Breath/Dyspnea Stated Complaint: Chest tightness, shortness of breath Time Seen by Provider: 10/23/24 14:05 Source: patient Mode of arrival: ambulatory Limitations: no limitations History of Present Illness HPI Narrative: Patient is a 74 y/o female, with past medical history of diabetes, hypothyroidism, hypertension, CKD, who presents the ED with report of chest pain/shortness of breath. Patient reports having increasing SOB, worse with any sort of exertion, over the past 1 week. States it has been worsening. Also reports having some midsternal chest pressure since yesterday. Denies history of similar symptoms. Denies previous heart or lung issues. Does report that she has had some sinus pressure/drainage since last week. Has been taking Flonase, DayQuil/NyQuil. Denies fevers. Denies significant cough. Denies orthopnea. Denies pain or swelling in her lower extremities. Denies history of blood clots or recent travel. Denies abdominal pain. Related Data Home Medications ?Medication ?Instructions ?Recorded ?Confirmed ?Last Taken ?Type aspirin 81 mg tablet,delayed 81 mg PO DAILY 07/12/20 10/05/24 12/01/23 History release (Adult Low Dose Aspirin) latanoprost 0.005 % eye drops 1 drp LEFT EYE HS 01/10/22 10/05/24 12/01/23 History brimonidine 0.2 %-timolol 0.5 % 1 drp LEFT EYE Q12H 10/28/22 10/05/24 12/01/23 History eye drops (Combigan) calcium carbonate-vitamin D3 500 1 tablet PO DAILY 10/28/22 10/05/24 12/01/23 History mg(1,250 mg)-600 unit chewable tablet multivitamin (One Daily 1 tablet PO DAILY 10/28/22 10/05/24 12/01/23 History Multivitamin tablet) biotin 1 mg tablet 1 mg PO DAILY 09/05/23 10/05/24 12/01/23 History acetaminophen 500 mg tablet 1,000 mg PO Q6H PRN Pain or fever 09/13/23 10/05/24 12/01/23 History (Tylenol Extra Strength) ascorbic acid (vitamin C) 1,000 mg 1 g PO DAILY 09/13/23 10/05/24 12/01/23 History tablet cholecalciferol (vitamin D3) 25 25 mcg PO DAILY 09/13/23 10/05/24 12/01/23 History mcg (1,000 unit) capsule mecobalamin (vitamin B12) 1,000 1,000 mcg sublingual DAILY 09/01/24 10/05/24 Unknown History mcg disintegrating tablet,sublingual Allergies Allergy/AdvReac Type Severity Reaction Status Date / Time Sulfa (Sulfonamide Allergy Nausea Verified 10/23/24 14:04 Antibiotics) Review of Systems 2 Review of Systems: All systems reviewed & are unremarkable except as noted in HPI. All systems reviewed & are unremarkable except as noted in HPI and below PMFSH Past Medical History Medical History BMI 30.0-30.9,adult FARIA (dyspnea on exertion) Hospital discharge follow-up Coronary artery disease Hammer toes of both feet Osteoporosis DM type 2 (diabetes mellitus, type 2) Spider bite Primary osteoarthritis of both feet Laceration of skin of left lower leg Depressed mood Cellulitis and abscess of face Glaucoma History of retinal tear Light sensitivity CKD (chronic kidney disease) Hearing loss UTI symptoms Vitamin D deficiency Hammertoe of right foot Hematuria, microscopic Leukocytes in urine BMI 34.0-34.9,adult Encounter for routine adult health examination with abnormal findings Chronic low back pain Encounter for preventive health examination DJD (degenerative joint disease) of knee Vertigo Sinus drainage Colon cancer screening Constipation Elevated LFTs Diastolic dysfunction Supraventricular tachycardia Heart palpitations BMI 32.0-32.9,adult Follow up BMI 31.0-31.9,adult Light headedness Esophageal spasm Abnormal finding of blood chemistry Encounter for routine adult health examination without abnormal findings Anxiety Diabetes Arthritis HTN (hypertension) Abnormal EKG Benign essential hypertension Elevated serum creatinine Elevated glucose BMI 33.0-33.9,adult DJD (degenerative joint disease), multiple sites Hypothyroidism (acquired) Hyperlipidemia On intermediate accountant drug therapy Depression Surgical History Surgical History H/O repair of rotator cuff H/O: hysterectomy Status post cataract extraction History of total right knee replacement History of knee replacement Family History Family History Sibling Acute myocardial infarction, Onset Age: 63 Patient's brother is Family history of cardiovascular disease Family history of coronary artery disease Father Family history of heart disease in male family member before age 55 Acute myocardial infarction Family history of cardiovascular disease Family history of coronary artery disease Mother Hypertension Cerebrovascular accident Social History Social History Smoking status: Never smoker Second hand tobacco smoke exposure: No Alcohol intake: never Substance use: never Substance use type: does not use Do You Feel Safe in your Home?: Yes Lack of Transportation: No Lack of Food: Never True Current Housing: I Have Housing Concerned About Future Housing: No Difficulty Paying Gas/Electric Bills: No Difficulty Paying for Meds: No Currently Unemployed: No Education: Master's Degree or Higher Difficulty w/ Childcare or Family Care: No Living arrangements: with family Gender identity (if verbalized by the patient): Female Spiritual care concerns: No Agree to blood products: Yes Exam 2 Narrative: GENERAL: Well appearing, well-nourished, non-toxic, in no acute distress. HEAD: Normocephalic, atraumatic. RESPIRATORY: Airway patent, respirations nonlabored. Clear to auscultation bilaterally, no rales, rhonchi, wheezing. No significant focal lung sounds. CARDIOVASCULAR: Regular rate and rhythm without murmurs, rubs, or gallops. ABDOMINAL: Soft, nontender, nondistended. Normoactive BS. MUSCULOSKELETAL: Moves all extremities. No gross deformities. No peripheral edema. No calf tenderness. SKIN: Warm, dry, normal color. NEURO: A&O X3. Speech clear. Steady gait. No ataxic movements. PSYCHIATRIC: Appropriate mood and affect. Normal interaction. Course Vital Signs Vital signs: Vital Signs Temperature 97.6 F 10/23/24 13:59 Pulse Rate 104 H 10/23/24 13:59 Respiratory Rate 18 10/23/24 13:59 Blood Pressure 135/80 10/23/24 13:59 Pulse Oximetry 98 10/23/24 13:59 Temperature 97.6 F 10/23/24 13:59 Pulse Rate 68 10/23/24 16:31 Respiratory Rate 23 H 10/23/24 16:31 Blood Pressure 109/70 10/23/24 16:31 Pulse Oximetry 98 10/23/24 16:31 MDM - SOB/Dyspnea MDM Narrative Medical decision making narrative: Patient presented to ED with 1 week history of chest pain/shortness breath. Dyspnea worse with exertion. Patient borderline tachycardic upon arrival. Otherwise vitals are stable. She is afebrile. Oxygen stable on room air. EKG with sinus rhythm, first-degree AV block. No significant concerning ST changes. Baseline troponin negative. Laboratory studies without leukocytosis. Stable H&H. Possibly slightly hemoconcentrated. Patient given small amount of fluids. CMP with creatinine of 1.69. This does appear consistent with previous records. Total bilirubin is mildly elevated to 1.8. Liver enzymes are also slightly elevated. This does appear new compared to previous records. Lipase within normal limits. Patient denies any right upper quadrant tenderness. Right upper quadrant ultrasound was obtained and with some evidence of cirrhosis, mild ascites. Status post cholecystectomy. No biliary ductal dilation. BNP is mildly elevated to 1650. No previous history of known CHF. Patient does not appear largely fluid overloaded. No peripheral edema. No pulmonary edema noted on chest x-ray. She was ambulated throughout the ED and no ambulatory hypoxia was noted. D-dimer did result slightly elevated at 0.68. Technically age adjusted normal. Patient unable to receive contrast imaging based on kidney function. VQ scan was obtained and thankfully low probability for PE. No signs or symptoms of DVT on exam. 3 hour troponin also resulted undetectable. Discussed lab and imaging findings with patient and family. Discussed overall reassuring workup. Discussed possibility of CHF with elevated BNP here today. Patient is very much stable at this time. Again no hypoxia. No evidence of fluid overload. Feel patient is safe for outpatient workup of CHF. Patient is in agreement this plan. She not wish to be admitted at this time. She states she is ready to go home. Advised very close follow-up with PCP, recommended she contact on Friday morning to make appointment. Discussed that she will likely need echocardiogram. Will also refer to GI for evaluation of cirrhosis. Discussed very strict return precautions should symptoms worsen or change. She voiced understanding. Feels comfortable going home. Discharged in stable condition. Medical Records Attestation: I reviewed the patient's medical records. Lab Data Attestation: I reviewed the patient's lab results. 10/23/24 14:07 10/23/24 14:07 Labs: Lab Results 10/23/24 10/23/24 10/23/24 Range/Units 14:07 14:08 14:44 WBC 5.1 (4.5-10.0) K/mm3 RBC 5.02 (4.2-5.4) M/mm3 Hgb 15.4 H (12.0-15.0) g/dL Hct 47.0 (37.0-47.0) % MCV 93.6 (80-100) fl MCH 30.7 (26-34) pg MCHC 32.8 (32-36) g/dl RDW 13.5 (11.5-14.5) % Plt Count 189 (150-375) k/mm3 MPV 9.0 (7.4-10.4) fl Immature Gran % (Auto) 0.2 (0-0.5) % Neut % (Auto) 52.5 (45.5-73.1) % Lymph % (Auto) 36.6 (18.3-44.2) % Beadle % (Auto) 6.9 (2.6-8.5) % Eos % (Auto) 3.2 (0-4.4) % Baso % (Auto) 0.6 (0.2-1.2) % Lymph # (Auto) 1.85 (0.9-3.2) K/mm3 Beadle # (Auto) 0.4 (0.1-0.6) K/mm3 Eos # (Auto) 0.2 (0-0.3) K/mm3 Baso # (Auto) 0.0 (0.0-0.1) K/mm3 Abs Immat Gran (auto) 0.01 (0.00-0.031) K/mm3 Absolute Neuts (auto) 2.7 (1.3-6.7) K/mm3 Absolute Nucleated RBC 0.000 (0.0-0.012) K/mm3 Nucleated RBC % 0.0 (0.0-0.2) % PT 13.2 (11.1-14.7) Seconds INR 1.0 APTT 23.3 (22.3-36.8) Seconds D-Dimer 0.68 H (<0.48) ug/mL Sodium 136 L (137-145) mmol/L Potassium 4.6 (3.4-5.0) mmol/L Chloride 102 (98-107) mmol/L Carbon Dioxide 28 (22-30) mmol/L Anion Gap 6 (4-12) mmol/L BUN 21 H (7-17) mg/dL Creatinine 1.69 H (0.7-1.0) mg/dL Estim Creat Clear Calc Not Reportable Estimated GFR 29 L (59 - ) Glucose 97 (65-110) mg/dL Calcium 9.6 (8.4-10.2) mg/dL Total Bilirubin 1.8 H (0.2-1.3) mg/dL AST 64 H (14-36) U/L ALT 49 H (6-35) U/L Alkaline Phosphatase 104 (38-126) U/L Troponin I < 0.012 (0.000-0.034) ng/mL NT-Pro-B Natriuret Pep 1650 H (19.9-100) pg/mL Total Protein 7.3 (6.3-8.2) g/dL Albumin 4.1 (3.5-5.1) g/dL Lipase 234 (23-300) U/L Influenza A (RT-PCR) Negative (Negative) Influenza B (RT-PCR) Negative (Negative) RSV (RT-PCR) Negative (Negative) SARS-CoV-2 RNA (RT-PCR) Negative (Negative) 10/23/24 Range/Units 17:34 WBC (4.5-10.0) K/mm3 RBC (4.2-5.4) M/mm3 Hgb (12.0-15.0) g/dL Hct (37.0-47.0) % MCV (80-100) fl MCH (26-34) pg MCHC (32-36) g/dl RDW (11.5-14.5) % Plt Count (150-375) k/mm3 MPV (7.4-10.4) fl Immature Gran % (Auto) (0-0.5) % Neut % (Auto) (45.5-73.1) % Lymph % (Auto) (18.3-44.2) % Beadle % (Auto) (2.6-8.5) % Eos % (Auto) (0-4.4) % Baso % (Auto) (0.2-1.2) % Lymph # (Auto) (0.9-3.2) K/mm3 Beadle # (Auto) (0.1-0.6) K/mm3 Eos # (Auto) (0-0.3) K/mm3 Baso # (Auto) (0.0-0.1) K/mm3 Abs Immat Gran (auto) (0.00-0.031) K/mm3 Absolute Neuts (auto) (1.3-6.7) K/mm3 Absolute Nucleated RBC (0.0-0.012) K/mm3 Nucleated RBC % (0.0-0.2) % PT (11.1-14.7) Seconds INR APTT (22.3-36.8) Seconds D-Dimer (<0.48) ug/mL Sodium (137-145) mmol/L Potassium (3.4-5.0) mmol/L Chloride (98-107) mmol/L Carbon Dioxide (22-30) mmol/L Anion Gap (4-12) mmol/L BUN (7-17) mg/dL Creatinine (0.7-1.0) mg/dL Estim Creat Clear Calc Estimated GFR (59 - ) Glucose (65-110) mg/dL Calcium (8.4-10.2) mg/dL Total Bilirubin (0.2-1.3) mg/dL AST (14-36) U/L ALT (6-35) U/L Alkaline Phosphatase (38-126) U/L Troponin I < 0.012 (0.000-0.034) ng/mL NT-Pro-B Natriuret Pep (19.9-100) pg/mL Total Protein (6.3-8.2) g/dL Albumin (3.5-5.1) g/dL Lipase (23-300) U/L Influenza A (RT-PCR) (Negative) Influenza B (RT-PCR) (Negative) RSV (RT-PCR) (Negative) SARS-CoV-2 RNA (RT-PCR) (Negative) Imaging Data Attestation: I personally reviewed and interpreted this imaging study as follows: Radiologist's impression: ITS Impressions Chest X-Ray 10/23/24 15:12 IMPRESSION: No acute cardiopulmonary process. Pulmonary Perfusion Imaging 10/23/24 17:23 IMPRESSION: Low probability for pulmonary embolism. Abdomen Ultrasound 10/23/24 17:29 IMPRESSION: Echogenic appearing pancreas, of doubtful clinical significance unless pancreatic labs are abnormal. Cirrhosis. Status post cholecystectomy. No common bile duct dilation. Ascites. ECG Data EKG #1: Attestation: I personally reviewed and interpreted this ECG as follows: ECG completion date: 10/23/24 ECG completion time: 14:06 EKG Interpretation: normal rate (97), sinus rhythm (First-degree AV block) and non-specific ST changes Discharge Plan Discharge Clinical Impression: Shortness of breath, Elevated brain natriuretic peptide (BNP) level Cirrhosis Qualifiers: Hepatic cirrhosis type: unspecified hepatic cirrhosis Ascites presence: with ascites Qualified Code(s): K74.60 - Unspecified cirrhosis of liver Patient Disposition: Home Condition: Stable Instructions: Antibiotic Form, Heart Failure (ED), Cirrhosis of the Liver (ED), Left-sided and Right-sided Heart Failure (ED) Additional Instructions: Your workup here was overall reassuring. Your marker for congestive heart failure was elevated. You will need to follow-up with your primary care doctor for further evaluation and outpatient echocardiogram. Contact PCP office on Friday morning. Your imaging did also show evidence of cirrhosis of the liver. Recommend follow-up with GI for this. Return to the ED if you experience worsening or severe chest pain or shortness of breath, difficulty breathing, pain or swelling in your legs, unable to keep down food or drink, persistent fevers, or any other symptoms of concern. Patient Language: Danish Prescriptions: No Action latanoprost 0.005 % drops 1 drp LEFT EYE HS aspirin [Adult Low Dose Aspirin] 81 mg tablet,delayed release (DR/EC) 81 mg PO DAILY calcium carbonate-vitamin D3 500 mg(1,250mg) -600 unit tablet,chewable 1 tablet PO DAILY biotin 1 mg tablet 1 mg PO DAILY mecobalamin (vitamin B12) 1,000 mcg tablet,disintegrating 1,000 mcg sublingual DAILY Rx Instructions: place tablet under tongue and allow to dissolve for at least30 secs before swallowing Ozempic 0.25 mg or 0.5 mg (2 mg/3 mL) pen injector 0.25 mg subcut WEEKLY Qty: 3 1RF Rx Instructions: for 4 weeks cholecalciferol (vitamin D3) 25 mcg (1,000 unit) Capsule 25 mcg PO DAILY acetaminophen [Tylenol Extra Strength] 500 mg Tablet 1,000 mg PO Q6H PRN (Reason: Pain or fever) ascorbic acid (vitamin C) 1,000 mg Tablet 1 g PO DAILY brimonidine-timolol [Combigan] 0.2-0.5 % drops 1 drp LEFT EYE Q12H multivitamin [One Daily Multivitamin] Tablet 1 tablet PO DAILY fluoxetine 20 mg capsule 20 mg PO DAILY Qty: 90 1RF losartan 50 mg tablet 50 mg PO DAILY Qty: 90 1RF montelukast 10 mg tablet 10 mg PO DAILY Qty: 90 1RF atorvastatin 20 mg tablet 20 mg PO DAILY Qty: 90 1RF niacin 1,000 mg tablet extended release 24 hr See Rx Instructions .ROUTE .COMPLEX Qty: 90 1RF Dose Instruction: TAKE 1 TABLET DAILY Rx Instructions: TAKE 1 TABLET DAILY icosapent ethyl 1 gram capsule See Rx Instructions .ROUTE .COMPLEX Qty: 360 1RF Dose Instruction: TAKE 2 CAPSULES TWICE DAILY Rx Instructions: TAKE 2 CAPSULES TWICE DAILY dapaglifloz propaned-metformin [Xigduo XR] 10-1,000 mg tablet, IR - ER, biphasic 24hr 1 tablet PO DAILY Qty: 90 2RF levothyroxine [Synthroid] 125 mcg tablet See Rx Instructions .ROUTE .COMPLEX Qty: 90 1RF Dose Instruction: TAKE 1 TABLET EVERY MORNING Rx Instructions: TAKE 1 TABLET EVERY MORNING Follow-up/Referrals: Kapil Cassidy MD [Primary Care Provider] - Axel Nieto MD [Physician] - (GI) Time of Disposition: 19:03
--- OUTSIDE RECORDS SUMMARY | 2024-10-23 14:22 | XMS_ITS | Clinical Summary ---
Author Organization [facility] Address [address] [place] [address] Care Team Providers Care Elevator Mechanic Name Role Phone Kapil Cassidy MD Primary Care Provider + [phone] Allergies No known active allergies Medications vitamin [...] this topic Medical Devices Implanted Type Area Call Center Trainer Device Identifier Shelf Expiration Date Model / Serial / Lot Wire Fixation [employer] L9 In Od.045 In 2 Tr - [id number] Implanted:Qty: 3 on 10/09/2021 by William Kathleen DPM at [facility] Wire Right: Foot [employer] [id number] / / Description:2nd, 3rd,4th toe fixation Insurance [facility] Care Teams Elevator Mechanic Relationship Specialty Start Date End Date Kapil Cassidy MD [address] - [facility] [address] [place] [address] PCP - General INTERNAL MEDICINE 10/02/21
--- OUTSIDE RECORDS SUMMARY | 2024-10-23 14:22 | XMS_ITS | Continuity of Care Document ---
Author Organization [facility] Address [address] [facility] [address] [place] [address] Phone Care Team Providers Care Production Clerk Name Role Phone Gilbert Leo MD Unavailable [...] Copied on Encounter [facility], [address] [place] [address], [id number], tel:[phone] [facility] No Information 5 Ahmet Hunt. [address] [place] [address], [id number], [place]. tel:[phone] Referring Provider: Kapil Cassidy MD, [address], [place], [place], [facility]. tel:[phone] OFFICE/OUTPA TIENT VISIT, EST [facility], [address] [place] [address], [id number], tel:[phone] [facility] Ocular Hypertension (chief complaint)Gla ucoma (chief complaint)Nidia betic eye exam (chief complaint) Bilateral ocular hypertension Malignant glaucoma of left eyePseudopha isis of both eyesMeibomia n gland dysfunction (MGD) of both eyes 5 Ahmet Hunt. [address] [place] [address], [id number], . tel:[phone] Referring Provider: Kapil Cassidy MD, [address], [place], [address]. tel:[phone] [facility], [address] [place] [address], [id number], [place] tel:[phone] [facility] No Information Dec-0 4 Marizol Fields. [address] [place] [address], [id number], [place]. tel:[phone] [facility], [address] [place] [address], [id number], tel:[phone] [facility] No Information Oct-0 4 Ahmet Hunt. [address] [place] [address], [id number], [place]. tel:[phone] OFFICE/OUTPA TIENT VISIT, EST [facility], [address] [place] [address], [id number], [place] tel:[phone] [facility] Glaucoma, followup (chief complaint)Nidia betic eye exam (chief complaint) Bilateral ocular hypertension Malignant glaucoma of left eyePseudopha isis of both eyesMeibomia n gland dysfunction (MGD) of both eyes 4 Ahmet Gilbert. [address] [place] [address], [id number], [place]. tel:[phone] Referring Provider: Gilbert Leo, [address] [place] [address], [id number]. tel:[phone] OFFICE/OUTPA TIENT VISIT, EST [facility], [address] [place] [address], [id number], [place] tel:[phone] [facility] Glaucoma, followup (chief complaint)Nidia betic eye exam (chief complaint) Bilateral ocular hypertension Malignant glaucoma of left eyePseudopha isis of both eyesMeibomia n gland dysfunction (MGD) of both eyes 3 Ahmet Hunt. [address] [place] [address], [id number], [place]. tel:[phone] Referring Provider: Kapil Cassidy MD, [address], [place], [address]. tel:[phone] [facility], [address] [place] [address], [place], [place], [id number], [place] tel:[phone] [facility] No Information Dec-2 2 aMksim Rey. [address] [facility], [address], [place], [place], [id number], [place]. tel:[phone] Referring Provider: Franki Wagner, [address] [facility] , [place], [address]. tel:[phone] OFFICE/OUTPA TIENT VISIT, EST [facility], [address] [place] [address], [id number], tel:[phone] [facility] decreased vision (chief complaint)OHT (chief complaint)typ e II DM (chief complaint) Other secondary cataract, right eyeBilateral ocular hypertension Malignant glaucoma of left eyePseudopha isis of both eyesMeibomia n gland dysfunction (MGD) of both eyes Oct-0 2 Maksim Rey. [address] [facility], [address], [place], [place], [id number], [place]. tel:[phone] Referring Provider: Kapil Cassidy MD, [address], [place], [address]. tel:[phone] OFFICE/OUTPA TIENT VISIT, EST [facility], [address] [place] [address], [id number], tel:[phone] [facility] Occular Hypertension (chief complaint)Nidia betic eye exam (chief complaint) Bilateral ocular hypertension Malignant glaucoma of left eyePseudopha isis of both eyesMeibomia n gland dysfunction (MGD) of both eyes 2 Ahmet Hunt. [address] [place] [address], [id number], [place]. tel:[phone] Referring Provider: Gilbert Leo, [address] [place] [address], [id number]. tel:[phone] OFFICE/OUTPA TIENT VISIT, EST [facility], [address] [place] [address], [id number], tel:[phone] [facility] Blurry vision (chief complaint)Gla ucoma, followup (chief complaint) Bilateral ocular hypertension Malignant glaucoma of left eyePseudopha isis of both eyesMeibomia n gland dysfunction (MGD) of both eyes 1 Ahmet Hunt. [address] [place] [address], [id number], [place]. tel:[phone] Referring Provider: Gilbert Ahmet, [address] [facility], [place], [address]. tel:[phone] OFFICE/OUTPA TIENT VISIT, [facility], [address] [place] [address], [place], [place], [id number], [place] tel:[phone] [facility] FELIC[facility] open angle glaucoma (chief complaint) Aqueous misdirection of left eyePseudoaph akiaOpen angle with borderline findings, low risk, bilateral 1 Cuong Diez. [address] [facility], [address], [place], [address], [place]. tel:[phone] Referring Provider: Kapil Cassidy MD, [address], [place], [address]. tel:[phone] [facility], [address] [place] [address], [id number], [place] tel:[phone] [facility] follow up (chief complaint) Aqueous misdirection of left eye 1 Cuong Diez. [address] [facility], [address], [place], [address], [place]. tel:[phone] Referring Provider: Kapil Cassidy MD, [address], [place], [address]. tel:[phone] [facility], [address] [place] [address], [place], [place], [id number], [place] tel:[phone] [facility] Post-Op (chief complaint) Aqueous misdirection of left eye 0 Cuong Diez. [address] [facility], [address], [place], [address], [place]. tel:[phone] Referring Provider: Kapil Cassidy MD, [address], [place], [address]. tel:[phone] [facility], [address] [place] [address], [place], [place], [id number], [place] tel:[phone] [facility] Post-Op (chief complaint) Aqueous misdirection of left eye 0 Cuong Diez. [address] [facility], [address], [place], [address], [place]. tel:[phone] Referring Provider: Kapil Cassidy MD, [address], [place], [address]. tel:[phone] [facility], [address] [place] [address], [place], [place], [id number], [place] tel:[phone] [facility] No Information 0 Cuong Diez. [address] [place] [address], [address], [place], [address], [place]. tel:[phone] Referring Provider: Rg Rdz, [id number] [place] [address] [address], [place], [address]. tel:[phone] OFFICE/OUTPA TIENT VISIT, EST [facility], [address] [place] [address] [address], [place], [place], [id number], [place] tel:[phone] [facility] Aqueous Misdirection (chief complaint) Aqueous misdirection of left eyeOpen angle with borderline findings, low risk, bilateralPse udoaphakia 0 Cuong Diez. [address] [facility], [address], [place], [address], [place]. tel:[phone] Referring Provider: Kapil Cassidy MD, [address], [place], [address]. tel:[phone] OFFICE/OUTPA TIENT VISIT, EST [facility], [address] [place] [address], [place], [place], [id number], [place] tel:[phone] [facility] Punctate Keratitis f/u (chief complaint)DMI I (chief complaint) Type 2 diabetes without complication Bilateral keratoconjun ctivitis sicca, not specified as Sjogren'sPse udoaphakiaAn atomical narrow angle, left eye Oct-3 0 Cuong Diez. [address] [facility], [address], [place], [address], [place]. tel:[phone] Referring Provider: Franki Wagner, [facility] , [place], [address]. tel:[phone] OFFICE/OUTPA TIENT VISIT, EST [facility], [address] [place] [address], [place], [place], [id number], [place] tel:[phone] [facility] F/U Punctate Keratitis (chief complaint) Punctate keratitis of left eyePseudoaph akiaPain around left eye 9 Derheimer OD Sonia. [address], [address], [place], [place], [id number], [place]. tel:[phone] Referring Provider: Sonia Kramer OD, [address], [place], [address]. tel:[phone] OFFICE/OUTPA TIENT VISIT, EST [facility], [address] [place] [address], [place], [place], [id number], [place] tel:[phone] [facility] trouble with ctls (chief complaint) Pseudoaphaki aPain around left eyePunctate keratitis of left eyeAcute atopic conjunctivit is, left eye 9 Derheimer OD Sonia. [address] [facility], [address], [place], [place], [id number], [place]. tel:[phone] Referring Provider: Candido Garcia, [address], [place], [address]. tel:[phone] [facility], [address] [place] [address], [id number], [place] tel:[phone] [facility] Post-Op (chief complaint) Presence of intraocular lens 9 Maksim Rey. [address], [address], [place], [place], [id number], [place]. tel:[phone] Referring Provider: Candido Garcia, [address], [place], [address]. tel:[phone] [facility], [address] [place] [address], [id number], tel:[phone] [facility] FELICIAN[facility] post op (chief complaint) Pseudoaphaki a 9 Williams OD Sonia. [address], [address], [place], [place], [id number], [place]. tel:[phone] Referring Provider: Sonia Kramer OD, [address], [place], [address]. tel:[phone] [facility], [address] [place] [address], [id number], tel:[phone] [facility] FELICIANO post op (chief complaint) Presence of intraocular lens 9 Maksim Rey. [address], [address], [place], [place], [id number], [place]. tel:[phone] Referring Provider: Candido Garcia, [address], [place], [address]. tel:[phone] [facility], [address] [place] [address], [id number], [place] tel:[phone] [facility] No Information 9 Maksim Rey. [address], [address], [place], [place], [id number], [place]. tel:[phone] Referring Provider: Candido Garcia, [address], [place], [address]. tel:[phone] [facility], [address] [place] [address], [id number], [place] tel:[phone] [facility]EL[facility] MR (chief complaint) No Information 9 Maksim Rey. [address], [address], [place], [place], [id number], [place]. tel:[phone] Referring Provider: Candido Garcia, [address], [place], [address]. tel:[phone] [facility], [address] [place] [address], [id number], tel:[phone] [facility] Post-Op (chief complaint) Pseudoaphaki a 9 Derheimer OD Sonia. [address], [address], [place], [place], [id number], [place]. tel:[phone] Referring Provider: aCndido Garcia, [address], [place], [address]. tel:[phone] [facility], [address] [place] [address], [id number], [place] tel:[phone] [facility] [place] No Information 8 Maksim Rey. [address], [address], [place], [place], [id number], [place]. tel:[phone] Referring Provider: Candido Garcia, [address], [place], [address]. tel:[phone] [facility], [address] [place] [address], [id number], [place] tel:[phone] [facility]ELIC[facility] post op (chief complaint) Anatomical narrow angle, bilateral 8 Maksim Rey. [address], [address], [place], [place], [id number], [place]. tel:[phone] Referring Provider: Candido Garcia, [address], [place], [address]. tel:[phone] [facility], [address] [place] [address], [id number], tel:[phone] [facility] [place] No Information 8 Maksim Rey. [address], [address], [place], [place], [id number], . tel:[phone] Referring Provider: Candido Garcia, [address], [place], [address]. tel:[phone] [facility], [address] [place] [address], [id number], tel:[phone] [facility] [place] No Information 8 Maksim Rey. [address], [address], [place], [place], [address], [place]. tel:[phone] Referring Provider: Candido Garcia, [address], [place], [address]. tel:[phone] OFFICE/OUTPA TIENT VISIT, [facility], [address] [place] [address], [id number], tel:[phone] [facility] FELICIANO cataract eval (chief complaint) Age-related nuclear cataract, bilateralTyp e 2 diabetes without complication Squamous blepharitis left lower eyelidDermat ochalasis of left upper eyelidBilate ral keratoconjun ctivitis sicca, not specified as Sjogren's 8 Maksim Rey. [address], [address], [place], [place], [id number], [place]. tel:[phone] Referring Provider: Candido Garcia, [address], [place], [address]. tel:[phone] Family History Family Member Type Diagnosis Age At Onset Father Problem Cardiovascular disease Brother Problem Cardiovascular disease Payers Payer name Insurance type Covered constitution party ID Authoriza tion(s) [facility] [id number] Social History Type Description Quantity Date Captured Comments Sex Female Smoking Status No Information Chief Complaint And Reason For Visit No Information Reason For Referral Reason For Referral No Information Plan Of Treatment Date Type Action Status Referral Ordered: Daryl Doan -[facility] Providers : Communications Strategist (related to Aqueous misdirection of left eye) ordered Referral Ordered: Daryl Doan -[facility] Providers : Communications Strategist (related to Aqueous misdirection of left eye) ordered Referral Referred To: Daryl Doan [address] [facility] [place], [phone] Ordered: Referrals: [facility] Providers : Communications Strategist. Daryl Doan ordered Referral Ordered: Ole Kimball -Ophthalmology (related to Pseudoaphakia) ordered Referral Referred To: Ole Kimball [address] [facility] [address] [place], [phone] Ordered: Referrals: Ophthalmology. Ole Kimball. Evaluate and treat ordered Appointment Elizabeth De Leon BOOKED Future Order: Radiology Order Ze iss Clarus 700. ([id number]), Sent on: Sent History Of Present Illness [...] exam sent to Dr. Bassem Brito @ [facility] Post-Op Additional infor mation: Pt presents for [...] is stable. Pt uncertain of BS or D7G--wxsx she is borderlineReferring: Dr. Cassidy (PCP) Punctate [...] high pressures being high. Dr. Franki Brito (Crew Manager ) gave her Combigan bid OS only, [...] Instruction Additional Infor meseret Impression/Plan Related to Bilat eral ocular hypertension [...] jimbo gland dysfunction (MGD) of both eyes Return to Dr Ahmet [...] Pain around left eye Impression/Plan Related to Pseud oaphakia Impression/Plan Related to Acute atopic conjunctivitis, left eye Impression/Plan Related to Pain around [...] not specified as Sjogren's Impression/Plan Related to Coleridge tochalasis of left upper eyelid Impression/Plan Related to Squam ous blepharitis left lower eyelid Impression/Plan Related to Type 2 diabetes without complication Assessments Type Assessment Date No Information Patient Care Teams Name Effective Dates (start - stop) Status Members No Information
--- OUTSIDE RECORDS SUMMARY | 2024-10-23 14:22 | XMS_ITS | Clinical Summary ---
Author Organization [facility] Address [address] [facility] [place] [address] Care Team Providers Care Liquid Fertilizer Servicer Name Role Phone Unavailable Primary Care Provider Unavailabl e Source Comments [facility],non-owned Affiliates and Associated Physician Practices is amultiple site organization consisting of ambulatory clinics and hospital sitesin [place], [place]. This disclosure is being madepursuant to the Care Everywhere program and may not contain all information available regarding this patient. 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
--- OUTSIDE RECORDS SUMMARY | 2024-10-23 14:22 | XMS_ITS | Continuity of Care Document ---
Author Organization [facility] Address [address] [place] [address] Phone Care Team Providers Care Production Truck Driver Name Role Phone Lopez OD, Temo Unavailable [...] Provider Providers Copied on Encounter [facility], [address] [place] [address] [address], [place], [place], [id number], [place] tel:[phone] [facility] No Information Dec- 5-200 7 Lopez OD Temo. [address] [facility] , [address], [place], [place], [facility], [place]. tel:[phone] [facility], [address] [place] [address] [address], [place], [place], [address], [place] tel:[phone] [facility] No Information July-0 7-200 7 Lopez OD Temo. [address] [facility] , [address], [place], [address], [place]. tel:[phone] [facility], [address] [place] [address] [address], [place], [place], [id number], tel:[phone] [facility] No Information May-0 1-200 7 Lopez OD Temo. [address] [facility] , [address], [place], [address], [place]. tel:[phone] Referring Provider: Kapil Cassidy MD C, [address], [place], [address]. tel:[phone] Family History Family Member Type Diagnosis Age At Onset No Information Payers Payer name Insurance type Covered democrat ID Authoriza tion(s) No Information Social History [...]
[2024-10-23 14:23] LABS: INR 1.0; Partial Thromboplastin Time 23.3 Seconds (22.3-36.8); Prothrombin Time 13.2 Seconds (11.1-14.7)
[2024-10-23 14:25] LABS: Alanine Aminotransferase 49 U/L (6-35); Albumin Level 4.1 g/dL (3.5-5.1); Alkaline Phosphatase 104 U/L (38-126); Anion Gap 6 mmol/L (4-12); Aspartate Amino Transferase 64 U/L (14-36); Bilirubin,Total 1.8 mg/dL (0.2-1.3); Blood Urea Nitrogen 21 mg/dL (7-17); Calcium 9.6 mg/dL (8.4-10.2); Carbon Dioxide 28 mmol/L (22-30); Chloride 102 mmol/L (98-107); Estimated Glomerular Filt Rate 29; Glucose 97 mg/dL (65-110); Lipase 234 U/L (23-300); Potassium 4.6 mmol/L (3.4-5.0); Sodium 136 mmol/L (137-145); Total Protein 7.3 g/dL (6.3-8.2)
[2024-10-23 14:35] LABS: Troponin I < 0.012 ng/mL (0.000-0.034)
[2024-10-23 15:23] LABS: Influenza A QL RT-PCR Negative (Negative); Influenza B QL RT-PCR Negative (Negative); RSV RNA, RT-PCR Negative (Negative); SARS-CoV-2 RNA PCR Negative (Negative)
[2024-10-23] MEDS: SODIUM CHLORIDE 0.9% IV 1,000 ML 999 ML IV CONT (15:45)
[2024-10-23 16:01] LABS: NT Pro B Type Natriuretic Pept 1650 pg/mL (19.9-100)
--- NOTE | 2024-10-23 17:27 | ECG_ITS ---
Test Date: 2024-10-23 17:32:44 Measurements Intervals [place] Rate: 64 P: -40 RI: 208 QRS: 9 QRSD: 105 T: 55 QT: 425 QTc: 441 Interpretive Statements SINUS RHYTHM WITH FIRST DEGREE AV BLOCK DELAYED PRECORDIAL R/S TRANSITION INFERIOR INFARCT, AGE INDETERMINATE ABNORMAL ECG Compared to ECG 10/23/2024 14:06:04 NO SIGNIFICANT CHANGE Electronically Signed On 10-23-2024 18:29:05 CDT by Joshua Reed D.O.
[2024-10-23 18:05] LABS: Troponin I < 0.012 ng/mL (0.000-0.034)
== END 2024-10-23 19:16 | disposition home or self-care (01) ==
PROVIDERS: Student in an Organized Health Care Education/Training Program; Emergency Provider Physician Assistant; PCP Internal Medicine
DX: R06.02 Shortness of breath (principal); K74.60 Unspecified cirrhosis of liver; R18.8 Other ascites; R79.89 Other specified abnormal findings of blood chemistry; Z20.822 Contact with and (suspected) exposure to COVID-19; E11.22 Type 2 diabetes mellitus with diabetic chronic kidney disease; I12.9 Hypertensive chronic kidney disease with stage 1 through stage 4 chronic kidney disease, or unspecified chronic kidney disease; N18.9 Chronic kidney disease, unspecified; M81.0 Age-related osteoporosis without current pathological fracture; E03.9 Hypothyroidism, unspecified; I25.10 Atherosclerotic heart disease of native coronary artery without angina pectoris; E11.39 Type 2 diabetes mellitus with other diabetic ophthalmic complication; H42 Glaucoma in diseases classified elsewhere; E78.5 Hyperlipidemia, unspecified; E55.9 Vitamin D deficiency, unspecified; I11.9 Hypertensive heart disease without heart failure; M17.9 Osteoarthritis of knee, unspecified; M19.071 Primary osteoarthritis, right ankle and foot; M19.072 Primary osteoarthritis, left ankle and foot; F41.9 Anxiety disorder, unspecified; Z96.651 Presence of right artificial knee joint; Z90.710 Acquired absence of both cervix and uterus; Z98.49 Cataract extraction status, unspecified eye; Z79.85 Long-term (current) use of injectable non-insulin antidiabetic drugs; Z79.82 Long term (current) use of aspirin; Z79.899 Other long term (current) drug therapy; I44.0 Atrioventricular block, first degree; R94.31 Abnormal electrocardiogram [ECG] [EKG]
CPT/HCPCS: 36415; 71046; 76705; 78582; 80053; 83690; 83880; 84484; 85025; 85380; 85610; 85730; 87637; 93005; 96360; 99284; A9540; A9558; J7030

== ENCOUNTER 2024-11-12 09:04 | Outpatient (CLI) | payer BC, SELFPAY ==
--- OUTSIDE RECORDS SUMMARY | 2024-11-12 09:08 | XMS_ITS | Clinical Summary ---
Author Organization [facility] [employer] Address [address] [place] [address] Care Team Providers Care Retail Sales Clerk Name Role Phone Unavailable Primary Care Provider Unavailabl e Source Comments [facility] [employer],non-owned Affiliates and Associated Physician Practices is amultiple site organization consisting of ambulatory clinics and hospital sitesin [place], [place], [place]. This disclosure is being madepursuant to the Care Everywhere program and may not contain all information available regarding this patient. 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
--- NOTE | 2024-11-12 13:58 | WPDPFTINT ---
PFT Procedure Performed PFT Procedure Performed Spirometry with Pre/Post Bronchodilator Plethysmography (Lung Vol) Diffusing Cap (DLCO) Flow Vol Loop PFT Interpretation This is a pulmonary function test with pre and post-bronchodilator spirometry, plethysmography and diffusing capacity. The test was performed and results interpreted in accordance with the 2019 and 2005 ATS/ERS Task Force guidelines respectively using the Global Lung Function Initiative-2012 reference equations. Patient demonstrated good effort and cooperation. Reproducibility criteria were met. The quality of the pre bronchodilator spirometry maneuver was Grade A and post bronchodilator spirometry maneuver was Grade A. Findings: Spirometry: The contour the inspiratory and expiratory flow tracing are normal. The pre bronchodilator FVC is 3.60 L, 110% predicted. The pre bronchodilator FEV1 is 2.59 L, 105% predicted. The pre bronchodilator FEV1: FVC ratio is 72%. The post bronchodilator FVC is 3.44 L, representing a 4% decrease. The post bronchodilator FEV1 is 2.52 L, representing a 3% decrease. The post bronchodilator FEV1: FVC ratio 73%. Plethysmography: The total lung capacity is 5.26 L, 88% predicted. The functional residual capacity is 3.22 L, 93% predicted. The residual volume is 1.67 L, 64% predicted. Diffusing capacity: Diffusing capacity unadjusted for hemoglobin and carboxyhemoglobin is 17.4, 78% predicted. The diffusing capacity adjusted for alveolar volume is 3.86, 99% predicted. Impression: The spirometry is normal without evidence of an obstructive abnormality. There is no significant improvement after inhaling a single dose of albuterol. The total lung capacity and functional residual capacity are normal with a decreased residual volume. This is an abnormal but nonspecific lung volume pattern. The diffusing capacity is normal. There are no prior studies for comparison
== END 2024-11-12 09:05 | disposition home or self-care (01) ==
PROVIDERS: PCP Internal Medicine; Visit Provider Internal Medicine
DX: R06.09 Other forms of dyspnea (principal)
CPT/HCPCS: 94060; 94726; 94729

== ENCOUNTER 2024-11-13 14:06 | Inpatient (IN) | payer MEDICARE, BC, SELFPAY ==
--- OUTSIDE RECORDS SUMMARY | 2007-01-15 05:53 | XMS_ITS | Continuity of Care Document ---
Author Organization [facility] [place] [address] [place] [address] Phone Care Team Providers Care Wood Dowel Machine Operator Name Role Phone Lopez OD, Temo Unavailable Unavailable Procedures Procedure Date CL Replacement - Taran Other 7 Tax - Medical CL Replacement - Vistakon Disp W/BW Soft Tax - Medical Eye Exam & Treatment Refraction Advance Directives Directive Yes / No Effective Date File Name No Information Encounters Encounter Description Practice Location Reason(s) For Visit Diagnoses Date Provider Providers Copied on Encounter [facility], [address] [place] [address] [address], [place], [place], [id number], [place] tel:[phone] [facility] No Information Dec- 5-200 7 Lopez OD Temo. [address] , [address], [place], [place], [facility], [place]. tel:[phone] [facility], [id number] [place] [address] [address], [place], [place], [id number], [place] tel:[phone] [facility] No Information July-0 7-200 7 Lopez OD Temo. [address] , [address], [place], [address], [place]. tel:[phone] [facility], [address] [place] [address] [address], [place], [place], [id number], tel:[phone] [facility] No Information May-0 1-200 7 Lopez OD Temo. [address] , [address], [place], [address], [place]. tel:[phone] Referring Provider: Kapil Cassidy MD C, [address], [place], [address]. tel:[phone] Family History Family Member Type Diagnosis Age At Onset No Information Payers Payer name Insurance type Covered libertarian ID Authoriza tion(s) No Information Social History [...]
--- OUTSIDE RECORDS SUMMARY | 2024-06-02 09:37 | XMS_ITS | Continuity of Care Document ---
Author Organization [facility] Address [address] [facility] [address] [place] [address] Phone Care Team Providers Care Explosives Worker Name Role Phone Gilbert Leo MD Unavailable Unavailable Allergies, Adverse Reactions, Alerts Substance Reaction Status Criticality No Known Allergies Active No Inform ation Medications Medication Instructions Dosage Effective Dates (start - stop) Status Comments Combigan 0.2 %-0.5 % eye drops instill 1 drop by ophthalmic route every 12 hours into left eye - Active latanoprost 0.005 % eye drops instill 1-2 drop by ophthalmic route every day into left eye in the evening for 90-day supply - Active Xigduo XR 10 mg-1,000 mg tablet,extended release take 1 tablet by oral route every day in the morning with food 1.00 tablet - Active Vitamin C 1,000 mg tablet - Active Multivitamin 50 Plus tablet - Active aspirin 81 mg chewable tablet chew 1 tablet by oral route every day 81 MG - Active atorvastatin 20 mg tablet take 1 tablet by oral route every day 20 MG - Active Fish Oil 1,000 mg (120 mg-180 mg) capsule - Active losartan 50 mg tablet take 1 tablet by oral route every day 50 MG - Active metformin 1,000 mg tablet take 1 tablet by oral route 2 times every day with morning and evening meals 1000 MG - Active montelukast 10 mg tablet take 1 tablet by oral route every day in the evening 10 MG - Active Niaspan 1,000 mg tablet,extended release take 1 tablet by oral route every day at bedtime after a low-fat snack - Active Prozac 20 mg capsule take 1 capsule by oral route every day in the morning 20 MG - Active Synthroid 137 mcg tablet take 1 tablet by oral route every day 137 MCG - Active Combigan 0.2 %-0.5 % eye drops instill 1 drop by ophthalmic route every 12 hours into left eye - No Longer Active Procedures Procedure Date VISUAL FIELD- EXTENDED GDX Optic Nerve OFFICE/OUTPATIENT VISIT, EST GDX Optic Nerve VISUAL FIELD- EXTENDED OFFICE/OUTPATIENT VISIT, EST GDX Optic Nerve VISUAL FIELD- EXTENDED OFFICE/OUTPATIENT VISIT, EST AFTER CATARACT LASER SURGERY OFFICE/OUTPATIENT VISIT, EST FUNDUS PHOTOGRAPHY OFFICE/OUTPATIENT VISIT, EST GDX Optic Nerve OFFICE/OUTPATIENT VISIT, EST OFFICE/OUTPATIENT VISIT, EST VISUAL FIELD- EXTENDED POSTOP FOLLOW-UP VISIT POSTOP FOLLOW-UP VISIT POSTOP FOLLOW-UP VISIT AFTER CATARACT LASER SURGERY OFFICE/OUTPATIENT VISIT, EST GDX Optic Nerve OFFICE/OUTPATIENT VISIT, EST GDX Optic Nerve Oct OFFICE/OUTPATIENT VISIT, EST OFFICE/OUTPATIENT VISIT, EST POSTOP FOLLOW-UP VISIT POSTOP FOLLOW-UP VISIT POSTOP FOLLOW-UP VISIT REMOVE IMPLANT OF EYE POSTOP FOLLOW-UP VISIT POSTOP FOLLOW-UP VISIT Yag PI POSTOP FOLLOW-UP VISIT CATARACT SURG W/IOL, 1 STAGE CATARACT SURG W/IOL, 1 STAGE OFFICE/OUTPATIENT VISIT, NEW OPHTHALMIC BIOMETRY OPHTHALMIC BIOMETRY MICROFLUID ALESIA TEARS MCR ONLY 018 MICROFLUID ALESIA TEARS MCR ONLY 018 PHARMACY 2 EYES Advance Directives Directive Yes / No Effective Date File Name No Information Encounters Encounter Description Practice Location Reason(s) For Visit Diagnoses Date Provider Providers Copied on Encounter [facility], [address] [place] [address], [id number], tel:[phone] [facility] No Information 5 Ahmet Hunt. [address] [place] [address], [id number], [place]. tel:[phone] Referring Provider: Kapil Cassidy MD, [address], [place], [place], [facility]. tel:[phone] OFFICE/OUTPA TIENT VISIT, EST [facility], [address] [place] [address], [id number], tel:[phone] [facility] Ocular Hypertension (chief complaint)Gla ucoma (chief complaint)Nidia betic eye exam (chief complaint) Bilateral ocular hypertension Malignant glaucoma of left eyePseudopha isis of both eyesMeibomia n gland dysfunction (MGD) of both eyes 5 Ahmet Hunt. [address] [place] [address], [id number], . tel:[phone] Referring Provider: Kapil Cassidy MD, [address], [place], [address]. tel:[phone] [facility], [address] [place] [address], [id number], [place] tel:[phone] [facility] No Information Dec-0 4 Marizol Fields. [address] [place] [address], [id number], [place]. tel:[phone] [facility], [address] [place] [address], [id number], tel:[phone] [facility] No Information Oct-0 4 Ahmet Hunt. [address] [place] [address], [id number], [place]. tel:[phone] OFFICE/OUTPA TIENT VISIT, EST [facility], [address] [place] [address], [id number], [place] tel:[phone] [facility] Glaucoma, followup (chief complaint)Nidia betic eye exam (chief complaint) Bilateral ocular hypertension Malignant glaucoma of left eyePseudopha isis of both eyesMeibomia n gland dysfunction (MGD) of both eyes 4 Ahmet Gilbert. [address] [place] [address], [id number], [place]. tel:[phone] Referring Provider: Gilbert Leo, [address] [place] [address], [id number]. tel:[phone] OFFICE/OUTPA TIENT VISIT, EST [facility], [address] [place] [address], [id number], [place] tel:[phone] [facility] Glaucoma, followup (chief complaint)Nidia betic eye exam (chief complaint) Bilateral ocular hypertension Malignant glaucoma of left eyePseudopha isis of both eyesMeibomia n gland dysfunction (MGD) of both eyes 3 Ahmet Hunt. [address] [place] [address], [id number], [place]. tel:[phone] Referring Provider: Kapil Cassidy MD, [address], [place], [address]. tel:[phone] [facility], [address] [place] [address], [place], [place], [id number], [place] tel:[phone] [facility] No Information Dec-2 2 Maksim Rey. [address] [facility], [address], [place], [place], [id number], [place]. tel:[phone] Referring Provider: Franki Wagner, [address] [facility] , [place], [address]. tel:[phone] OFFICE/OUTPA TIENT VISIT, EST [facility], [address] [place] [address], [id number], tel:[phone] [facility] KANCH[facility] FELICIANO decreased vision (chief complaint)OHT (chief complaint)typ e II DM (chief complaint) Other secondary cataract, right eyeBilateral ocular hypertension Malignant glaucoma of left eyePseudopha isis of both eyesMeibomia n gland dysfunction (MGD) of both eyes Oct-0 2 Maksim Rey. [address] [facility], [address], [place], [place], [id number], [place]. tel:[phone] Referring Provider: Kapil Cassidy MD, [address], [place], [address]. tel:[phone] OFFICE/OUTPA TIENT VISIT, EST [facility], [address] [place] [address], [id number], tel:[phone] [facility] Occular Hypertension (chief complaint)Nidia betic eye exam (chief complaint) Bilateral ocular hypertension Malignant glaucoma of left eyePseudopha isis of both eyesMeibomia n gland dysfunction (MGD) of both eyes 2 Ahmet Hunt. [address] [place] [address], [id number], [place]. tel:[phone] Referring Provider: Gilbert Leo, [address] [place] [address], [id number]. tel:[phone] OFFICE/OUTPA TIENT VISIT, EST [facility], [address] [place] [address], [id number], tel:[phone] [facility] Blurry vision (chief complaint)Gla ucoma, followup (chief complaint) Bilateral ocular hypertension Malignant glaucoma of left eyePseudopha isis of both eyesMeibomia n gland dysfunction (MGD) of both eyes 1 Ahmet Hunt. [address] [place] [address], [id number], [place]. tel:[phone] Referring Provider: Gilbert Ahmet, [address] [facility], [place], [address]. tel:[phone] OFFICE/OUTPA TIENT VISIT, [facility], [address] [place] [address], [place], [place], [id number], [place] tel:[phone] [facility] KANCH[facility] FELICIANO open angle glaucoma (chief complaint) Aqueous misdirection of left eyePseudoaph akiaOpen angle with borderline findings, low risk, bilateral 1 Cuong Diez. [address] [facility], [address], [place], [address], [place]. tel:[phone] Referring Provider: Kapil Cassidy MD, [address], [place], [address]. tel:[phone] [facility], [address] [place] [address], [id number], [place] tel:[phone] [facility] follow up (chief complaint) Aqueous misdirection of left eye 1 Cuong Diez. [address] [facility], [address], [place], [address], [place]. tel:[phone] Referring Provider: Kapil Cassidy MD, [address], [place], [address]. tel:[phone] [facility], [address] [place] [address], [place], [place], [id number], [place] tel:[phone] [facility]ANCH[facility] FELICIANO Post-Op (chief complaint) Aqueous misdirection of left eye 0 Cuong Diez. [address] [facility], [address], [place], [address], [place]. tel:[phone] Referring Provider: Kapil Cassidy MD, [address], [place], [address]. tel:[phone] [facility], [address] [place] [address], [place], [place], [id number], [place] tel:[phone] [facility] Post-Op (chief complaint) Aqueous misdirection of left eye 0 Cuong Diez. [address] [facility], [address], [place], [address], [place]. tel:[phone] Referring Provider: Kapil Cassidy MD, [address], [place], [address]. tel:[phone] [facility], [address] [place] [address], [place], [place], [id number], [place] tel:[phone] [facility] No Information 0 Cuong Diez. [address] [place] [address], [address], [place], [address], [place]. tel:[phone] Referring Provider: Rg Rdz, [address] [place] [address] [address], [place], [address]. tel:[phone] OFFICE/OUTPA TIENT VISIT, EST [facility], [address] [place] [address] [address], [place], [place], [id number], [place] tel:[phone] [facility]CH[facility] FELICIANO Aqueous Misdirection (chief complaint) Aqueous misdirection of left eyeOpen angle with borderline findings, low risk, bilateralPse udoaphakia 0 Cuong Diez. [address] [facility], [address], [place], [address], [place]. tel:[phone] Referring Provider: Kapil Cassidy MD, [address], [place], [address]. tel:[phone] OFFICE/OUTPA TIENT VISIT, EST [facility], [address] [place] [address], [place], [place], [id number], [place] tel:[phone] [facility] Punctate Keratitis f/u (chief complaint)DMI I (chief complaint) Type 2 diabetes without complication Bilateral keratoconjun ctivitis sicca, not specified as Sjogren'sPse udoaphakiaAn atomical narrow angle, left eye Oct-3 0 Cuong Diez. [address] [facility], [address], [place], [address], [place]. tel:[phone] Referring Provider: Franki aWgner, [facility] , [place], [address]. tel:[phone] OFFICE/OUTPA TIENT VISIT, EST [facility], [address] [place] [address], [place], [place], [id number], [place] tel:[phone] OPH CONSULT [facility]ANCH[facility] FELICIANO F/U Punctate Keratitis (chief complaint) Punctate keratitis of left eyePseudoaph akiaPain around left eye 9 Derheimer OD Sonia. [address], [address], [place], [place], [id number], [place]. tel:[phone] Referring Provider: Sonia Kramer OD, [address], [place], [address]. tel:[phone] OFFICE/OUTPA TIENT VISIT, EST [facility], [address] [place] [address], [place], [place], [id number], [place] tel:[phone] OPH CONSULT KANCHAN FELICIANO trouble with ctls (chief complaint) Pseudoaphaki aPain around left eyePunctate keratitis of left eyeAcute atopic conjunctivit is, left eye 9 Derheimer OD Sonia. [address] [facility], [address], [place], [place], [id number], [place]. tel:[phone] Referring Provider: Candido Garcia, [address], [place], [address]. tel:[phone] [facility], [address] [place] [address], [id number], [place] tel:[phone] [facility]PH [facility] KANCH[facility] FELICIANO Post-Op (chief complaint) Presence of intraocular lens 9 Maksim Rye. [address], [address], [place], [place], [id number], [place]. tel:[phone] Referring Provider: Candido Garcia, [address], [place], [address]. tel:[phone] [facility], [address] [place] [address], [id number], tel:[phone] OPH CONSULT KANCHAN FELICIANO post op (chief complaint) Pseudoaphaki a 9 Williams OD Sonia. [address], [address], [place], [place], [id number], [place]. tel:[phone] Referring Provider: Sonia Kramer OD, [address], [place], [address]. tel:[phone] [facility], [address] [place] [address], [id number], tel:[phone] OPH CONSULT KANCHAN FELICIANO post op (chief complaint) Presence of intraocular lens 9 Maksim Rey. [address], [address], [place], [place], [id number], [place]. tel:[phone] Referring Provider: Candido Garcia, [address], [place], [address]. tel:[phone] [facility], [address] [place] [address], [id number], [place] tel:[phone] [facility] No Information 9 Maksim Rey. [address], [address], [place], [place], [address], [place]. tel:[phone] Referring Provider: Candido Garcia, [address], [place], [address]. tel:[phone] [facility], [address] [place] [address], [id number], [place] tel:[phone] OPH CONSULT KANCHAN FELICIANO MR (chief complaint) No Information 9 Maksim Rey. [address], [address], [place], [place], [id number], [place]. tel:[phone] Referring Provider: Candido Garcia, [address], [place], [address]. tel:[phone] [facility], [address] [place] [address], [id number], tel:[phone] OPH CONSULT KANCHAN FELICIANO Post-Op (chief complaint) Pseudoaphaki a 9 Derheimer OD Sonia. [address], [address], [place], [place], [id number], [place]. tel:[phone] Referring Provider: Candido Garcia, [address], [place], [address]. tel:[phone] [facility], [address] [place] [address], [id number], [place] tel:[phone] [facility] No Information 8 Maksim Rey. [address], [address], [place], [place], [id number], [place]. tel:[phone] Referring Provider: Candido Garcia, [address], [place], [address]. tel:[phone] [facility], [address] [place] [address], [id number], [place] tel:[phone] OPH CONSULT KANCHAN FELICIANO post op (chief complaint) Anatomical narrow angle, bilateral 8 Maksim Rey. [address], [address], [place], [place], [id number], [place]. tel:[phone] Referring Provider: Candido Garcia, [address], [place], [address]. tel:[phone] [facility], [address] [place] [address], [id number], tel:[phone] [facility] No Information 8 Maksim Rey. [address], [address], [place], [place], [id number], . tel:[phone] Referring Provider: Candido Garcia, [address], [place], [address]. tel:[phone] [facility], [address] [place] [address], [id number], tel:[phone] [facility] No Information 8 Maksim Rey. [address], [address], [place], [place], [id number], [place]. tel:[phone] Referring Provider: Candido Garcia, [address], [place], [address]. tel:[phone] OFFICE/OUTPA TIENT VISIT, [facility], [address] [place] [address], [id number], tel:[phone] OPH CONSULT KANCHAN FELICIANO cataract eval (chief complaint) Age-related nuclear cataract, bilateralTyp e 2 diabetes without complication Squamous blepharitis left lower eyelidDermat ochalasis of left upper eyelidBilate ral keratoconjun ctivitis sicca, not specified as Sjogren's 8 Maksim Rey. [address], [address], [place], [place], [id number], [place]. tel:[phone] Referring Provider: Candido Garcia, [address], [place], [address]. tel:[phone] Family History Family Member Type Diagnosis Age At Onset Father Problem Cardiovascular disease Brother Problem Cardiovascular disease Payers Payer name Insurance type Covered constitution party ID Authoriza tion(s) [facility] [id number] Social History Type Description Quantity Date Captured Comments Sex Female Smoking Status No Information Chief Complaint And Reason For Visit No Information Reason For Referral Reason For Referral No Information Plan Of Treatment Date Type Action Status Referral Ordered: Daryl Doan -[facility] Providers : Blanker Press Operator (related to Aqueous misdirection of left eye) ordered Referral Ordered: Daryl Doan -[facility] Providers : Blanker Press Operator (related to Aqueous misdirection of left eye) ordered Referral Referred To: Daryl Doan [address] [facility] [place], [id number] Ordered: Referrals: [facility] Providers : Blanker Press Operator. Daryl Doan ordered Referral Ordered: Ole Kimball -Ophthalmology (related to Pseudoaphakia) ordered Referral Referred To: Ole Kimball [address] [facility] [address] [place], [phone] Ordered: Referrals: Ophthalmology. Ole Kimball. Evaluate and treat ordered Appointment Elizabeth De Leon BOOKED Future Order: Radiology Order Ze iss Clarus 700. ([id number]), Sent on: Sent History Of Present Illness Encounter Date Complaint History Of Prese nt Illness Ocular Hypertension The 74 year old female presents for evaluation of Ocular Hypertension in the right eye. VA not affected. Pt requires no therapy for iop OD. Glaucoma The patient is p resent for evaluation of Glaucoma in the left eye. No new Va changes since last visit. OS glaucoma is malignant type. Pt uses Brimonidine/Timolol OS BID& Latanoprost OS nightly with excellent compliance Last doses: Brim/Tuan OS appr 10:00am & Latanoprost OS appr 1:00am. Diabetic eye exam DM appr 4-5 ye ars. Va unaffected. Last A1C in middle 5.0s, done 1 week ago. DM treated by PCP (Khanh) Glaucoma, followup The 73 year o ld female presents for evaluation of Glaucoma, followup in the left eye. The onset was gradual. The symptom is constant. The condition is moderate. Combigan BID OS@11am, Latanoprost QHS OS@12am Diabetic eye exam The patient is present for evaluation of Diabetic eye exam in the right eye and left eye. The onset was gradual. The symptom is constant. The condition is stable per pt. Doesn't check BS, doesn't know A1C but PCP good with number. Glaucoma, followup The 72 year o ld female presents for evaluation of Glaucoma, followup in the left eye. The onset was gradual. The symptom is constant. The condition is moderate. Combigan BID OS@10am and Latanoprost QHS OS@12am Diabetic eye exam The patient is present for evaluation of Diabetic eye exam in the right eye and left eye. The onset was gradual. The symptom is constant. The condition is stable. Doesn't check BS and doesn't know A1C bu t PCP good with number decreased vision The 71 year old female presents for YAG evaluation OD, referred by Dr. Miquel Brito. Pt states that VA OD seems decreased, thought her contact was dirty. VA OS is doing okay. No pain or flashes. Occasional floaters OS. Pt already had YAG OS. OHT Pt has OHT OU, f ollowed by PAWEL. Pt is currently using Combigan BID OS and Latanoprost qhs OS. Pt reports good compliance with gtts. type II DM Pt has type II D M, managed by Dr. Cassidy. Pt is not required to check BS at home and does not remember her last A1c. Occular Hypertension The 71 year old female presents for evaluation of Occular Hypertension in the right eye and left eye. Pt. using Latanoprost OS Q HS ,Last dose : 1 am last night. Combigan BID OS Last dose : 10 am this am. Pt using gtts OS due to malignant glaucoma. Diabetic eye exam DM for four ye ars . Pt. monitors BS , not daily . HGA1C was in 5.0 apr. 3-4 months. NIDDM monitored by PCP ( Khanh ) . Blurry vision The 70 year old female presents for evaluation of Blurry vision in the left eye. The onset was progressive. It affects distance vision. The symptom is constant. The condition is not any better. not sharp Glaucoma, followup The patient i s present for evaluation of Glaucoma, followup in the right eye and left eye. The symptom is constant. The condition is moderate. Combigan BID OU@10am, Latanoprost QHS OU@12am open angle glaucoma The 70 year old female presents for evaluation of open angle glaucoma in the right eye and left eye. It started about 1 year(s) ago. The symptom is constant. The condition is moderate. Currently pt is taking Combigan BID OS as directed. Pt reports to deny any vision changes since last visit. Pt denies floaters or flashes of light.VF ordered todays/p vitrectomy and lamellar hole repair OS by Dr. Graves at [facility]/p Aqueous misdirection OSs/p PC IOL OU, s/p YAG OS follow up The 70 year old female presents for evaluation of follow up in the right eye and left eye. It started about 2 month(s) ago. Referred back by Dr. Graves s/p vitrectomy and lamellar hole repair OS 02/21. Pt is currently using Combigan BID OS only and AT prn OU. Last dose of Pred OS was 03/28. Pt states she still sees small air bubble OS. Denies pain. Next visit with Dr. Graves is 04/05Pt would like today exam sent to Dr. Bassem Brito @ [facility] Post-Op Additional infor mation: Pt presents for a 1 week YAG PC/Enlargement of LPI's PO OS. Patient reports still tolerating gtts well. Vision seems stable. Denies pain or irritation, other than when administering Atropine which mcghee.*Aqueous misdirection OS following PC IOL (2018) w/ Piggyback lens - shallow chamber. Removal of Piggyback lens. Post-Op Additional infor mation: S/P Yag Cap OSPt uses Lumigan QHS OS and Combigan BID OSPt hasn't worn CTL to see if vision has improved. Aqueous Misdirection The 69 year old female presents for a 5 day follow-up. Patient reports no changes in vision or comfort noted. Reporting good compliance w/ Combigan BID OS and Lumigan QHS OS. Pt to be evaluated by Dr. Amado today was well - after reviewing chart pt will be dilated and a MAC OCT will be obtained.h/o PC IOL OU (2018) w/ Piggyback lens. Pt had shallow chamber PO and an LPI was performed. Pt's IOP was still 26 OS last visit. (Lumigan added).Questionable aqueous misdirection. DMII The patient is p resent for evaluation of DMII in the right eye and left eye. Last OC exam was about 1 year(s) ago. VA not affected. The condition is stable. Pt uncertain of BS or A6R--tyfw she is borderlineReferring: Dr. Cassidy (PCP) Punctate Keratitis f/u The 69 ye ar old female presents for evaluation of Punctate Keratitis f/u in the left eye. It started about 1 year(s) ago. It affects VA not affected. The condition is significant. Pt says OS is sometimes tender to the touch. It feels okay today. She was recently given a gtt due to high pressures being high. Dr. Franki Brito ([employer] ) gave her Combigan bid OS only, to bring the pressure down (3.5 wks ago) This has not lowered her pressures. She is here to today due to the elevated pressure. No FHx of glaucoma. Blink used approx BID OU. s/p YAG PI OS PT IOP a 2 days ago 28, Referring doctor: Dr. Franki Brito F/U Punctate Keratitis The 68 ye ar old female presents for evaluation of F/U Punctate Keratitis in the left eye. It started about 1 month(s) ago. The symptom is constant. The condition is not any better. Patient states used Prednisolone QID OS for 1 week, states tried putting cls OS in for the first time in 1 month and it was so uncomfortable she had to remove it, states FB sensation OS mostly in the evening trouble with ctls The 68 year ol d female presents for evaluation of trouble with ctl for her OS. She states that about 5- 10 days ago she just couldn't get her ctl to stay in her eye. She thought it was just dry so she's been using AT's, but they weren't really. Pt is wondering if she has a suture in her OS that's messing with the contact. She also mentions that by evening it feels like there's something in the temporal corner of her eye. Post-Op The status of th e patient has not changed. Additional information: Pt feels her VA is the same as last OV. She denies pain/discomfort. Pt finished Pred and Ket yesterday. post op Patient presents for one week Piggy back IOL removal OS. Patient reports VA improved but still very blurry. She's also wondering if she has a suture in OS still. Sometimes feels FB. post op Patient presents for one day post op of sulcus lens removal OS. Patient reports blurry vision, haze, and FB sensation temporally, severe, constant. MR Post-Op Additional infor meseret: Pt presents for a 2 week YAG PI PO OS (PC (piggyback) IOL (standard, near) done 01/21/18. Pt reports vision OS seems to still be very blurry at near. Has to hold things about 6 inches away to be able to read. No pain or irritation. No nausea. PC IOL PO (Piggyback IOL, standard, dist) OD done 03/11/18. Compliant w/ Pred Acetate QID OD, Ketorolac QID OD, AFT OU. h/o YAG PI OU. post op Patient presents for 2 month POST OP, OS, Phaco w/ PC IOL and Piggy Back IOL OU. Patient complains that her focal point for the OS is about 6 inches. no pain. cataract eval Patient presents for cataract eval OU per Dr. Franki Brito. Patient complains of blurry vision, OU, mild, constant, and getting worse. She states that the vision stared getting worse over the last 2 years but much worse over the last year. 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 Impression/Plan Related to Bilat eral ocular hypertension Impression/Plan Related to Malig nant glaucoma of left eye Impression/Plan Related to Pseud ophakia of both eyes Impression/Plan Related to 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 Impression/Plan Related to Pseud ophakia of both eyes Impression/Plan Related to Malig nant glaucoma of left eye Impression/Plan Related to Bilat eral ocular hypertension Impression/Plan Related to 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 Impression/Plan Related to Other secondary cataract, right eye Impression/Plan Related to Malig nant glaucoma of left eye Impression/Plan Related to Pseud ophakia of both eyes Impression/Plan Related to Bilat eral ocular hypertension Impression/Plan Related to Pseud ophakia of both eyes Impression/Plan Related to 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 Impression/Plan Related to Bilat eral ocular hypertension Impression/Plan Related to Malig nant glaucoma of left eye Return to Dr Ahmet gil 6 months for OPTOS and HVF 24-2 Related to Bilateral ocular hypertension Impression/Plan Related to 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 Impression/Plan Related to Pseud ophakia of both eyes Impression/Plan Related to Bilat eral ocular hypertension Impression/Plan Related to Malig nant glaucoma of left eye Impression/Plan Related to Aqueo us misdirection of left eye Impression/Plan Related to Pseud oaphakia Impression/Plan Related to Open angle with borderline findings, low risk, bilateral Impression/Plan Related to Aqueo us misdirection of left eye Impression/Plan Related to Aqueo us misdirection of left eye Impression/Plan Related to Aqueo us misdirection of left eye Impression/Plan Related to Aqueo us misdirection of left eye Impression/Plan Related to Open angle with borderline findings, low risk, bilateral Impression/Plan Related to Pseud oaphakia Impression/Plan Related to Pseud oaphakia Impression/Plan Related to Type 2 diabetes without complication Impression/Plan Related to Bilat eral keratoconjunctivitis sicca, not specified as Sjogren's Impression/Plan Related to Anato mical narrow angle, left eye Impression/Plan Related to Punct ate keratitis of left eye Impression/Plan Related to Pseud oaphakia Impression/Plan Related to Pain around left eye Impression/Plan Related to Acute atopic conjunctivitis, left eye Impression/Plan Related to Pseud oaphakia Impression/Plan Related to Pain around left eye Impression/Plan Related to Punct ate keratitis of left eye Impression/Plan Related to Prese nce of intraocular lens Impression/Plan Related to Pseud oaphakia Impression/Plan Related to Prese nce of intraocular lens Impression/Plan Related to Pseud oaphakia Impression/Plan Related to Anato mical narrow angle, bilateral Impression/Plan Related to Age-r elated nuclear cataract, bilateral Impression/Plan Related to Bilat eral keratoconjunctivitis sicca, not specified as Sjogren's Impression/Plan Related to [place] tochalasis of left upper eyelid Impression/Plan Related to Squam ous blepharitis left lower eyelid Impression/Plan Related to Type 2 diabetes without complication Assessments Type Assessment Date No Information Patient Care Teams Name Effective Dates (start - stop) Status Members No Information
--- NOTE | ~2024-11-13 | US_ITS ---
US abdomen limited INDICATION: Elevated liver function tests PROCEDURE: Realtime right upper abdominal ultrasound. COMPARISON: No prior studies for comparison. FINDINGS: The pancreas is normal without focal mass or pancreatic ductal dilation. Liver echotexture is heterogeneous with no discrete mass. Trace ascites. There is normal directional flow in the portal vein. The gallbladder is normal without stones, gallbladder wall thickening or pericholecystic fluid. Common bile duct measures 9 mm. No sonographic Alston's sign. Increased renal cortical echotexture on the right with poor corticomedullary differentiation. Right kidney measures 10.9 cm. IMPRESSION: 1: Dilated common bile duct measuring 9 mm. Unremarkable gallbladder. Consider correlation with MRCP examination. 2: Trace ascites. 3: Increased renal cortical echotexture suggesting chronic renal disease. Reviewed, dictated and finalized at location O.
--- NOTE | ~2024-11-13 | CT_ITS ---
EXAMINATION: CT abdomen pelvis wo con DATE: 11/13/2024 16:22 INDICATION: Vomiting TECHNIQUE: Computed tomography (CT) of the abdomen and pelvis was performed without intravenous contrast. The dose-length product was 714.48 mGy-cm. Automated exposure control and iterative reconstruction technique were employed. COMPARISON: CT dated 12/05/2020 FINDINGS: Lung bases unremarkable. Heart size normal. Small hiatal hernia. Fatty infiltration of the liver. Gallbladder is distended. There is bowel malrotation. There is a typical appearance to the spleen. There is fatty infiltration of the liver. Severe lumbar spondylosis. No obstruction identified. No free air or free fluid. Small bowel located on the right colon on the left. There is a tubular structure with associated calcifications in the left midabdomen, possibly the appendix. No significant change in appearance compared with prior examination. No free air or free fluid. No acute osseous abnormality. No significant vascular abnormality. No lymphadenopathy. IMPRESSION: 1. No acute abdominal abnormality. Reviewed, dictated and finalized at location O.
--- NOTE | ~2024-11-13 | US_ITS ---
US retroperitoneal duplex ltd 11/17/2024 10:30 Procedure: Realtime transabdominal ultrasound of the kidneys and bladder. Indication: Rule out cirrhosis. Evaluate portal circulation Comparison: Ultrasound abdomen Limited 11/17/2024 Findings: Visualized portal veins are patent and demonstrate hepatopedal flow. Main portal vein is patent and measures 12.4 mm. Visualized hepatic veins are patent. No sonographic Alston's sign. Common duct measures 9 mm and is dilated. Small amount of fluid adjacent to the liver. Impression: 1: Visualized portal veins are patent and demonstrate hepatopedal flow. 2. Main portal vein is patent and measures 12.4 mm 3. Common duct is dilated at 9 mm. Consider an MRCP. 4. Small amount of fluid adjacent to the liver. Reviewed, dictated and finalized at location Q. Impression: 1: Visualized portal veins are patent and demonstrate hepatopedal flow. 2. Main portal vein is patent and measures 12.4 mm 3. Common duct is dilated at 9 mm. Consider an MRCP. 4. Small amount of fluid adjacent to the liver.
[2024-11-13 14:08] VITALS: BP 106/70; PULSE 119; RESP 16; O2SAT 92
--- OUTSIDE RECORDS SUMMARY | 2024-11-13 14:23 | XMS_ITS | Clinical Summary ---
Author Organization [facility] Address [address] [place] [address] Care Team Providers Care Physical Therapy Director Name Role Phone Kapil Cassidy MD Primary Care Provider [phone] Allergies No known active allergies Medications vitamin [...] this topic Medical Devices Implanted Type Area Pourer Device Identifier Shelf Expiration Date Model / Serial / Lot Wire Fixation [employer] L9 In Od.045 In 2 Tr - [id number] Implanted:Qty: 3 on 10/09/2021 by William Kathleen DPM at [facility] Wire Right: Foot [employer] [id number] / / Description:2nd, 3rd,4th toe fixation Insurance [facility] Care Teams Physical Therapy Director Relationship Specialty Start Date End Date Kapil Cassidy MD [id number] - [facility] [address] [place] [address] PCP - General INTERNAL MEDICINE 10/02/21
[2024-11-13] MEDS: SODIUM CHLORIDE 0.9% IV 1,000 ML 999 ML IV CONT ×2 (14:58→16:21)
[2024-11-13] MEDS: ONDANSETRON INJ 4 MG/2 ML VIAL IV PUSH (14:58)
[2024-11-13 15:03] VITALS: BP 100/55; PULSE 110; RESP 21; O2SAT 98
[2024-11-13 15:17] LABS: Hematocrit 46.5 % (37.0-47.0); Hemoglobin 15.9 g/dL (12.0-15.0); Immature Granulocyte Percent A 0.3 % (0-0.5); Lymphocytes Absolute Auto 1.48 K/mm3 (0.9-3.2); Mean Corpuscular HGB Conc 34.2 g/dl (32-36); Mean Corpuscular Hemoglobin 31.5 pg (26-34); Mean Corpuscular Volume 92.3 fl (80-100); Nucleated Red Blood Cells Absolute Auto 0.000 K/mm3 (0.0-0.012); Nucleated Red Blood Cells Perc 0.0 % (0.0-0.2); Platelet Count Result 235 k/mm3 (150-375); Red Blood Count 5.04 M/mm3 (4.2-5.4); White Blood Count 12.1 K/mm3 (4.5-10.0)
[2024-11-13 15:29] LABS: Alanine Aminotransferase 63 U/L (6-35); Albumin Level 3.6 g/dL (3.5-5.1); Alkaline Phosphatase 99 U/L (38-126); Anion Gap 12 mmol/L (4-12); Aspartate Amino Transferase 101 U/L (14-36); Bilirubin,Total 1.7 mg/dL (0.2-1.3); Blood Urea Nitrogen 30 mg/dL (7-17); Calcium 9.1 mg/dL (8.4-10.2); Carbon Dioxide 21 mmol/L (22-30); Chloride 102 mmol/L (98-107); Estimated CRCL calculation 26 ml/min; Estimated Glomerular Filt Rate 23; Glucose 90 mg/dL (65-110); Lipase 89 U/L (23-300); Potassium 4.7 mmol/L (3.4-5.0); Sodium 135 mmol/L (137-145); Total Protein 6.2 g/dL (6.3-8.2)
--- NOTE | 2024-11-13 17:12 | ECG_ITS ---
Test Date: 2024-11-13 17:17:22 Measurements Intervals [place] Rate: 125 P: -1 LA: 225 QRS: 14 QRSD: 100 T: 9 QT: 340 QTc: 491 Interpretive Statements ATRIAL FLUTTER/TACHYCARDIA WITH RAPID VENTRICULAR RESPONSE MINIMAL Q WAVES- ANTEROLATERAL LEADS CONSIDER ANTERIOR INFARCT, AGE INDETERMINATE INFERIOR INFARCT, AGE INDETERMINATE ABNORMAL ECG Compared to ECG 10/23/2024 17:32:44 Sinus rhythm no longer present Electronically Signed On 11-13-2024 20:20:19 CDT by Joshua Reed D.O.
--- NOTE | 2024-11-13 17:13 | ED_ITS ---
HPI - General Adult General Chief complaint: Nausea/Vomiting/Diarrhea Stated complaint: n/v x 12 hours Time Seen by Provider: 11/13/24 14:15 History of Present Illness HPI narrative: Patient is a 74-year-old female who presents ER with nausea vomiting. Ongoing over last 12 hours. No diarrhea. No sick contacts. No urinary frequency urgency or dysuria. No alleviating nor aggravating factors. Has not had this happen her form. Patient does take semaglutide weekly. Last dose was last night. Related Data Home Medications ?Medication ?Instructions ?Recorded ?Confirmed ?Last Taken ?Type aspirin 81 mg tablet,delayed 81 mg PO DAILY 07/12/20 0 11/09/24 12/01/23 History release (Adult Low Dose Aspirin) latanoprost 0.005 % eye drops 1 drp LEFT EYE HS 11/09/24 12/01/23 History brimonidine 0.2 %-timolol 0.5 % 1 drp LEFT EYE Q12H 11/09/24 12/01/23 History eye drops (Combigan) calcium carbonate-vitamin D3 500 1 tablet PO DAILY 10/1311/09/24 12/01/23 History mg(1,250 mg)-600 unit chewable tablet multivitamin (One Daily 1 tablet PO DAILY 10/28/22 0 11/09/24 12/01/23 History Multivitamin tablet) biotin 1 mg tablet 1 mg PO DAILY 09/05/2311/0912/01/23 History acetaminophen 500 mg tablet 1,000 mg PO Q6H PRN Pain o r fever 09/13/23 11/09/24 12/01/23 History (Tylenol Extra Strength) ascorbic acid (vitamin C) 1,000 mg 1 g PO DAILY 11/09/24 12/01/23 History tablet cholecalciferol (vitamin D3) 25 25 mcg PO DAILY 11/09/24 12/01/23 History mcg (1,000 unit) capsule mecobalamin (vitamin B12) 1,000 1,000 mcg sublingual D AILY 09/01/24 11/09/24 Unknown History mcg disintegrating tablet,sublingual Allergies Allergy/AdvReac Type Severity Reaction Status Date / Time Sulfa (Sulfonamide Allergy Nausea Verified 11/13/24 14:19 Antibiotics) Review of Systems 2 Review of Systems: All systems reviewed & are unremarkable except as noted in HPI and below Constitutional: Constitutional: Reports no additional constitutional complaints Cardiovascular: Cardiovascular: Reports no additional cardiovascular complaints Respiratory: Respiratory: Reports no additional respiratory complaints Gastrointestinal: Gastrointestinal: Reports no additional gastrointestinal complaints Genitourinary: Genitourinary: Reports no additional female genitourinary complaints [facility] Past Medical History Medical History (Updated 11/13/24 @ 18:15 by Rg Cao MD) BMI 29.0-29.9,adult Weight loss, intentional BMI 30.0-30.9,adult FARIA (dyspnea on exertion) Hospital discharge follow-up Coronary artery disease Hammer toes of both feet Osteoporosis DM type 2 (diabetes mellitus, type 2) Spider bite Primary osteoarthritis of both feet Laceration of skin of left lower leg Depressed mood Cellulitis and abscess of face Glaucoma History of retinal tear Light sensitivity CKD (chronic kidney disease) Hearing loss UTI symptoms Vitamin D deficiency Hammertoe of right foot Hematuria, microscopic Leukocytes in urine BMI 34.0-34.9,adult Encounter for routine adult health examination with abnormal findings Chronic low back pain Encounter for preventive health examination DJD (degenerative joint disease) of knee Vertigo Sinus drainage Colon cancer screening Constipation Elevated LFTs Diastolic dysfunction Supraventricular tachycardia Heart palpitations BMI 32.0-32.9,adult Follow up BMI 31.0-31.9,adult Light headedness Esophageal spasm Abnormal finding of blood chemistry Encounter for routine adult health examination without abnormal findings Anxiety Diabetes Arthritis HTN (hypertension) Abnormal EKG Benign essential hypertension Elevated serum creatinine Elevated glucose BMI 33.0-33.9,adult DJD (degenerative joint disease), multiple sites Hypothyroidism (acquired) Hyperlipidemia 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 drug 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 Depression Surgical History Surgical History H/O repair of rotator cuff H/O: hysterectomy Status post cataract extraction History of total right knee replacement History of knee replacement Family History Family History Sibling Acute myocardial infarction, Onset Age: 63 Patient's brother is Family history of cardiovascular disease Family history of coronary artery disease Father Family history of heart disease in male family member before age 55 Acute myocardial infarction Family history of cardiovascular disease Family history of coronary artery disease Mother Hypertension Cerebrovascular accident Social History Social History Smoking status: Never smoker Second hand tobacco smoke exposure: No Alcohol intake: never Substance use: never Substance use type: does not use Do You Feel Safe in your Home?: Yes Lack of Transportation: No Lack of Food: Never True Current Housing: I Have Housing Concerned About Future Housing: No Difficulty Paying Gas/Electric Bills: No Difficulty Paying for Meds: No Currently Unemployed: No Education: Master's Degree or Higher Difficulty w/ Childcare or Family Care: No Living arrangements: with family Gender identity (if verbalized by the patient): Female Spiritual care concerns: No Agree to blood products: Yes Exam 2 Narrative: GENERAL: Well-appearing, well-nourished, and in no acute distress. HEAD: Normocephalic, atraumatic. ENT: Mucous membranes moist. CHEST: Clear to auscultation. No respiratory distress. HEART: Tachycardic and regular. Normal peripheral pulses. ABDOMEN: Soft, nontender, nondistended. EXTREMITIES: Normal range of motion. No edema. SKIN: Warm, dry, no rash. NEURO: Alert and oriented x3. PSYCH: Normal mood and affect. Course Course Emergency Course: Patient resting comfortably but still persistently tachycardic and having some mild nausea. Will admit for observation/hydration. Vital Signs Vital signs: Vital Signs Pulse Rate 119 H 11/13/24 14:08 Respiratory Rate 16 11/13/24 14:08 Blood Pressure 106/70 11/13/24 14:08 Pulse Oximetry 92 11/13/24 14:08 Oxygen Delivery Room Air 11/13/24 14:08 Pulse Rate 110 H 11/13/24 15:03 Respiratory Rate 21 H 11/13/24 15:03 Blood Pressure 100/55 L 11/13/24 15:03 Pulse Oximetry 98 11/13/24 15:03 Oxygen Delivery Room Air 11/13/24 14:08 Medical Decision Making Vital Signs Vital Signs: Vital Signs Pulse Rate 119 H 11/13/24 14:08 Respiratory Rate 16 11/13/24 14:08 Blood Pressure 106/70 11/13/24 14:08 Pulse Oximetry 92 11/13/24 14:08 Oxygen Delivery Room Air 11/13/24 14:08 Pulse Rate 110 H 11/13/24 15:03 Respiratory Rate 21 H 11/13/24 15:03 Blood Pressure 100/55 L 11/13/24 15:03 Pulse Oximetry 98 11/13/24 15:03 Oxygen Delivery Room Air 11/13/24 14:08 Lab Data 11/13/24 15:03 11/13/24 15:03 Labs: Lab Results 11/13/24 Range/Units 15:03 WBC 12.1 H (4.5-10.0) K/mm3 RBC 5.04 (4.2-5.4) M/mm3 Hgb 15.9 H (12.0-15.0) g/dL Hct 46.5 (37.0-47.0) % MCV 92.3 (80-100) fl MCH 31.5 (26-34) pg MCHC 34.2 (32-36) g/dl RDW 14.3 (11.5-14.5) % Plt Count 235 (150-375) k/mm3 MPV 9.3 (7.4-10.4) fl Immature Gran % (Auto) 0.3 (0-0.5) % Neut % (Auto) 86.2 H (45.5-73.1) % Lymph % (Auto) 12.2 L (18.3-44.2) % Bonner % (Auto) 1.1 L (2.6-8.5) % Eos % (Auto) 0.0 (0-4.4) % Baso % (Auto) 0.2 (0.2-1.2) % Lymph # (Auto) 1.48 (0.9-3.2) K/mm3 Bonner # (Auto) 0.1 (0.1-0.6) K/mm3 Eos # (Auto) 0.0 (0-0.3) K/mm3 Baso # (Auto) 0.0 (0.0-0.1) K/mm3 Abs Immat Gran (auto) 0.04 H (0.00-0.031) K/mm3 Absolute Neuts (auto) 10.5 H (1.3-6.7) K/mm3 Absolute Nucleated RBC 0.000 (0.0-0.012) K/mm3 Nucleated RBC % 0.0 (0.0-0.2) % Sodium 135 L (137-145) mmol/L Potassium 4.7 (3.4-5.0) mmol/L Chloride 102 (98-107) mmol/L Carbon Dioxide 21 L (22-30) mmol/L Anion Gap 12 (4-12) mmol/L BUN 30 H (7-17) mg/dL Creatinine 2.08 H (0.7-1.0) mg/dL Estim Creat Clear Calc 26 ml/min Estimated GFR 23 L (59 - ) Glucose 90 (65-110) mg/dL Calcium 9.1 (8.4-10.2) mg/dL Total Bilirubin 1.7 H (0.2-1.3) mg/dL AST 101 H (14-36) U/L ALT 63 H (6-35) U/L Alkaline Phosphatase 99 (38-126) U/L Total Protein 6.2 L (6.3-8.2) g/dL Albumin 3.6 (3.5-5.1) g/dL Lipase 89 (23-300) U/L Imaging Data Radiologist's impression: ITS Impressions Abdomen/Pelvis CT 11/13/24 16:27 IMPRESSION: 1. No acute abdominal abnormality. Discharge Plan Discharge Clinical Impression: Drug side effects, MORALES (acute kidney injury), Vomiting Patient Disposition: Still a Patient Condition: Stable
--- NOTE | 2024-11-13 17:51 | P.HP_ITS ---
H&P: HPI History of Present Illness Date/Time: 11/13/24 17:51 Chief Complaint: Nausea and vomiting Narrative: 74-year-old female with past medical history of diabetes, CAD, CKD, diastolic CHF, hypertension and hyperlipidemia presents the hospital with nausea vomiting. Patient states that she recently went up on her semaglutide. She states that she has been on since semaglutide for about 3 weeks now. She states that the other 2 does increases she did fine with. She denies being sick lately, fevers chills, GI issues. Of work shows leukocytosis at 12.1, hemoglobin at 15.9, sodium of 135, BUN of 30, creatinine of 2.08 with baseline being around 1.7, total bili 1.7, AST. Abdomen pelvis show no acute findings. Review of Systems Review of Systems: 12 systems were reviewed and are negativ e except for as per HPI. [facility] Past Medical History Medical History (Updated 11/13/24 @ 18:15 by Rg Cao MD) BMI 29.0-29.9,adult Weight loss, intentional BMI 30.0-30.9,adult FARIA (dyspnea on exertion) Hospital discharge follow-up Coronary artery disease Hammer toes of both feet Osteoporosis DM type 2 (diabetes mellitus, type 2) Spider bite Primary osteoarthritis of both feet Laceration of skin of left lower leg Depressed mood Cellulitis and abscess of face Glaucoma History of retinal tear Light sensitivity CKD (chronic kidney disease) Hearing loss UTI symptoms Vitamin D deficiency Hammertoe of right foot Hematuria, microscopic Leukocytes in urine BMI 34.0-34.9,adult Encounter for routine adult health examination with abnormal findings Chronic low back pain Encounter for preventive health examination DJD (degenerative joint disease) of knee Vertigo Sinus drainage Colon cancer screening Constipation Elevated LFTs Diastolic dysfunction Supraventricular tachycardia Heart palpitations BMI 32.0-32.9,adult Follow up BMI 31.0-31.9,adult Light headedness Esophageal spasm Abnormal finding of blood chemistry Encounter for routine adult health examination without abnormal findings Anxiety Diabetes Arthritis HTN (hypertension) Abnormal EKG Benign essential hypertension Elevated serum creatinine Elevated glucose BMI 33.0-33.9,adult DJD (degenerative joint disease), multiple sites Hypothyroidism (acquired) Hyperlipidemia On longterm drug therapy Depression Surgical History Surgical History H/O repair of rotator cuff H/O: hysterectomy Status post cataract extraction History of total right knee replacement History of knee replacement Family History Family History Sibling Acute myocardial infarction, Onset Age: 63 Patient's brother is Family history of cardiovascular disease Family history of coronary artery disease Father Family history of heart disease in male family member before age 55 Acute myocardial infarction Family history of cardiovascular disease Family history of coronary artery disease Mother Hypertension Cerebrovascular accident Social History Social History Smoking status: Never smoker Second hand tobacco smoke exposure: No Alcohol intake: never Substance use: never Substance use type: does not use Do You Feel Safe in your Home?: Yes Lack of Transportation: No Lack of Food: Never True Current Housing: I Have Housing Concerned About Future Housing: No Difficulty Paying Gas/Electric Bills: No Difficulty Paying for Meds: No Currently Unemployed: No Education: Master's Degree or Higher Difficulty w/ Childcare or Family Care: No Living arrangements: with family Gender identity (if verbalized by the patient): Female Spiritual care concerns: No Agree to blood products: Yes Meds Home Medications and Allergies Home Medications ?Medication ?Instructions ?Recorded ?Confirmed ?Type aspirin 81 mg tablet,delayed 81 mg PO DAILY 07/12/20 0 11/13/24 History release (Adult Low Dose Aspirin) latanoprost 0.005 % eye drops 1 drp LEFT EYE HS 11/13/24 History brimonidine 0.2 %-timolol 0.5 % 1 drp LEFT EYE Q12H 11/13/24 History eye drops (Combigan) multivitamin (One Daily 1 tablet PO DAILY 10/28/22 0 11/13/24 History Multivitamin tablet) biotin 1 mg tablet 1 mg PO DAILY 09/05/2311/13 History acetaminophen 500 mg tablet 1,000 mg PO Q6H PRN Pain o r fever 09/13/23 11/13/24 History (Tylenol Extra Strength) ascorbic acid (vitamin C) 1,000 mg 1 g PO DAILY 11/13/24 History tablet cholecalciferol (vitamin D3) 25 25 mcg PO DAILY 11/13/24 History mcg (1,000 unit) capsule fluoxetine 20 mg capsule 20 mg PO DAILY #90 caps 05/2211/13/24 Rx losartan 50 mg tablet 50 mg PO DAILY #90 tabs 05/2211/13/24 Rx atorvastatin 20 mg tablet 20 mg PO DAILY #90 tabs 07/2211/13/24 Rx montelukast 10 mg tablet 10 mg PO DAILY #90 tabs 07/2211/13/24 Rx niacin 1,000 mg tablet,extended See Rx Instructions .R oute 08/08/24 11/13/24 Rx release 24 hr .COMPLEX #90 tabs Xigduo XR 10 mg-1,000 mg 1 tablet PO DAILY #90 ea 12/1611/13/24 Rx tablet,extended release (dapaglifloz propaned-metformin) icosapent ethyl 1 gram capsule See Rx Instructions .Ro clarke 08/30/24 11/13/24 Rx .COMPLEX #360 caps mecobalamin (vitamin B12) 1,000 1,000 mcg sublingual D AILY 09/01/24 11/13/24 History mcg disintegrating tablet,sublingual levothyroxine 125 mcg tablet See Rx Instructions .Rout e 09/20/24 11/13/24 Rx (Synthroid) .COMPLEX #90 tabs albuterol sulfate 90 mcg/actuation 1 puff inhalation Q 4H PRN 10/25/24 11/13/24 Rx aerosol inhaler (Ventolin HFA) shortness of breath or wheezing #8.5 grams semaglutide 1 mg/dose (4 mg/3 mL) 1 mg (0.75 mL) subcu t WEEKLY #3 mL 11/01/24 11/13/24 Rx subcutaneous pen injector (Ozempic) Allergies Allergy/AdvReac Type Severity Reaction Status Date / Time Sulfa (Sulfonamide Allergy Nausea Verified 11/13/24 14:19 Antibiotics) Vital Signs Vital Signs - 24 hr 11/13/24 14:08 11/13/24 15:03 Pulse Rate 119 H 110 H Respiratory Rate 16 21 H Blood Pressure 106/70 100/55 L Pulse Oximetry 92 98 Oxygen Delivery Room Air Exam Narrative: General: well appearing, appears stated age. HEENT: normocephalic, atraumatic. Mucous membranes moist. EOMI, PERRLA, bilateral sclera anicteric, no conjunctival injection. Neck supple without JVD, lymphadenopathy, or bruit. Respiratory: clear to ascultation bilaterally. No rales/rhonic/wheezes. Cardiovascular: Regular rate and rhythm, normal S1-S2 upon ascultation. No murmurs, rubs, or clicks. PMI is nondisplaced, capillary refill less than 3 second. Abdomen: Soft, round, no pulsatile masses, nondistended and nontender. No rebound, no guarding. No CVA tenderness, no hepatosplenomegaly. Bowel sounds present to all four quadrants. No high pitch or tinkling sounds, resonant to percussion. Extremities: No cyanosis, clubbing, or edema present. Pulses are palpable 2/2. Active ROM to all four extremities. Neuro: Alert and orientated x 4. PERRLA. Cranial nerves 2-12 intact without focal deficit. Skin: Warm, dry, and intact, without rash, erythema, or lesion. Psych: pleasant, cooperative, normal speech, normal affect, no hallucinations, no dysarthia H&P: Results Labs Labs: Short CBC 11/13/24 Range/Units 15:03 WBC 12.1 H (4.5-10.0) K/mm3 Hgb 15.9 H (12.0-15.0) g/dL Hct 46.5 (37.0-47.0) % Plt Count 235 (150-375) k/mm3 BMP 11/13/24 15:03 Sodium 135 L Potassium 4.7 Chloride 102 Carbon Dioxide 21 L BUN 30 H Creatinine 2.08 H Glucose 90 Calcium 9.1 Liver Function 11/13/24 Range/Units 15:03 Total Bilirubin 1.7 H (0.2-1.3) mg/dL AST 101 H (14-36) U/L ALT 63 H (6-35) U/L Alkaline Phosphatase 99 (38-126) U/L Albumin 3.6 (3.5-5.1) g/dL Assessment and Plan Assessment and plan (1) Vomiting: Code(s): R11.10 - Vomiting, unspecified Status: Acute Assessment and Plan: Could be due to increased dose of semaglutide IV hydration Zofran (2) MORALES (acute kidney injury): Code(s): N17.9 - Acute kidney failure, unspecified Status: Acute Assessment and Plan: On CKD 2 L IV fluid given emergency room Continue IVF BMP in the morning (3) Coronary artery disease: Qualifiers: Associated angina: unspecified whether angina present Coronary Disease-Associated Artery/Lesion type: unspecified vessel or lesion type [place] vs. transplanted heart: [place] heart Qualified Code(s): I25.10 - At herosclerotic heart disease of [place] coronary artery without angina pectoris Code(s): I25.10 - Atherosclerotic heart disease of [place] coronary artery without angina pectoris Status: Acute Assessment and Plan: Continue aspirin, Lipitor, continue Cozaar (4) Hyperlipidemia: Qualifiers: Hyperlipidemia type: mixed hyperlipidemia Qualified Code(s): E78.2 - Mixed hyperlipidemia Code(s): E78.5 - Hyperlipidemia, unspecified Status: Acute Assessment and Plan: Continue statin (5) DM type 2 (diabetes mellitus, type 2): Qualifiers: Chronic kidney disease stage: unspecified stage Diabetes mellitus complication detail: with chronic kidney disease Diabetes mellitus complication status: with kidney complications 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: without longterm use Qualified Code(s): E11.22 - Type 2 diabetes mellitus with diabetic chronic kidney disease Code(s): E11.9 - Type 2 diabetes mellitus without complications Status: Acute Assessment and Plan: Hold home diabetic medications Accu-Chris a.cAnnabelle HS SSI (6) Hypothyroidism (acquired): Code(s): E03.9 - Hypothyroidism, unspecified Status: Acute Assessment and Plan: Continue levothyroxine (7) Elevated LFTs: Code(s): R79.89 - Other specified abnormal findings of blood chemistry Status: Acute Assessment and Plan: CMP in the morning (8) Depression: Qualifiers: Depression Type: unspecified Qualified Code(s): F32.9 - Major depressive disorder, single episode, unspecified Code(s): F32.9 - Major depressive disorder, single episode, unspecified Status: Acute Assessment and Plan: Continue Prozac Quality VTE Prophylaxis VTE prophylaxis: mechanical ordered and pharmacologic ordered Hospitalist MIPS Advance Care Plan I have confirmed that the patient's Advanced Care Plan is present, code status is documented, or surrogate decision maker is listed in patient medical record.: Yes Medication Reconciliation I have utilized all available resources to obtain, update and review the patients current medications (includes all prescriptions, OTC, herbals, cannabis, and nutritional supplements).: Yes
[2024-11-13 18:19] VITALS: BP 114/75; PULSE 127; RESP 20; O2SAT 95
[2024-11-13] MEDS: SODIUM CHLORIDE 0.9% IV 1,000 ML 125 ML IV CONT (18:44)
[2024-11-13 20:00] VITALS: PULSE 136
[2024-11-13 20:13] VITALS: BMI 29.8
--- NOTE | 2024-11-13 20:15 | ADMGEN ---
This patient, Elizabeth De Leon, was admitted to 2 Medical Room 244-. Patient/family oriented to hospital policies and general routines including ID bracelet, bed and alarms, visiting hours, pain management, procedures, bathroom and other care routines, personal items, smoking policy, room service/diet, and visiting hours. Information on how to activate the Rapid Response Team has been discussed. Patient/Family are encouraged to report perceived risks to care and to ask questions if they do not understand what they are told or what they should do.
[2024-11-13 21:04] VITALS: O2SAT 94
[2024-11-13 22:00] VITALS: BP 136/79; PULSE 123; RESP 18; TEMP 37.1; O2SAT 99
[2024-11-13] MEDS: LATANOPROST 0.005% OP SOLN 2.5 ML BTL 1 DROP LEFT EYE (22:17)
[2024-11-14] VITALS (10 sets, daily range): BP systolic 113–123; BP diastolic 64–66; PULSE 74–122; RESP 18–20; TEMP 36.2–36.9; O2SAT 93–99
[2024-11-14] MEDS: SODIUM CHLORIDE 0.9% IV 1,000 ML 125 ML IV CONT ×3 (03:11→19:59)
[2024-11-14 04:09] LABS: Hematocrit 40.5 % (37.0-47.0); Hemoglobin 13.5 g/dL (12.0-15.0); Immature Granulocyte Percent A 0.4 % (0-0.5); Lymphocytes Absolute Auto 1.21 K/mm3 (0.9-3.2); Mean Corpuscular HGB Conc 33.3 g/dl (32-36); Mean Corpuscular Hemoglobin 31.1 pg (26-34); Mean Corpuscular Volume 93.3 fl (80-100); Nucleated Red Blood Cells Absolute Auto 0.000 K/mm3 (0.0-0.012); Nucleated Red Blood Cells Perc 0.0 % (0.0-0.2); Platelet Count Result 203 k/mm3 (150-375); Red Blood Count 4.34 M/mm3 (4.2-5.4); White Blood Count 11.8 K/mm3 (4.5-10.0)
[2024-11-14 04:32] LABS: Alanine Aminotransferase 89 U/L (6-35); Albumin Level 2.7 g/dL (3.5-5.1); Alkaline Phosphatase 67 U/L (38-126); Anion Gap 6 mmol/L (4-12); Aspartate Amino Transferase 144 U/L (14-36); Bilirubin,Total 0.9 mg/dL (0.2-1.3); Blood Urea Nitrogen 38 mg/dL (7-17); Calcium 8.0 mg/dL (8.4-10.2); Carbon Dioxide 22 mmol/L (22-30); Chloride 106 mmol/L (98-107); Estimated CRCL calculation 27 ml/min; Estimated Glomerular Filt Rate 24; Glucose 137 mg/dL (65-110); Potassium 4.5 mmol/L (3.4-5.0); Sodium 134 mmol/L (137-145); Total Protein 5.3 g/dL (6.3-8.2)
[2024-11-14] MEDS: LEVOTHYROXINE SODIUM 125 MCG TABLET BY MOUTH (05:43)
[2024-11-14] MEDS: MULTIVITAMINS THERAPEUTIC TAB (*BKC) 1 TABLET PO (09:35)
[2024-11-14] MEDS: ATORVASTATIN 20 MG TABLET PO (09:35)
[2024-11-14] MEDS: LOSARTAN POTASSIUM 50 MG TABLET PO (09:35)
[2024-11-14] MEDS: ASPIRIN 81 MG ENTERIC TABLET PO (09:35)
[2024-11-14] MEDS: MONTELUKAST SODIUM 10 MG TABLET PO (09:35)
[2024-11-14] MEDS: ENOXAPARIN 40 MG/0.4 ML SYRINGE SUB-Q (09:35)
--- NOTE | 2024-11-14 09:38 | P.PNIM_ITS ---
Progress Note: A&P Assessment and Plan (1) Vomiting: Code(s): R11.10 - Vomiting, unspecified Status: Acute Assessment and Plan: Could be due to increased dose of semaglutide IV hydration Zofran (2) MORALES (acute kidney injury): Code(s): N17.9 - Acute kidney failure, unspecified Status: Acute Assessment and Plan: On CKD 2 L IV fluid given emergency room Continue IVF BMP in the morning cr/bun 2.1/38 monitor (3) Coronary artery disease: Qualifiers: Associated angina: unspecified whether angina present Coronary Disease- Associated Artery/Lesion type: unspecified vessel or lesion type [place] vs. transplanted heart: [place] heart Qualified Code(s): I25.10 - Atherosclerotic heart disease of [place] coronary artery without angina pectoris Code(s): I25.10 - Atherosclerotic heart disease of [place] coronary artery without angina pectoris Status: Acute Assessment and Plan: Continue aspirin, Lipitor, continue Cozaar (4) Hyperlipidemia: Qualifiers: Hyperlipidemia type: mixed hyperlipidemia Qualified Code(s): E78.2 - Mixed hyperlipidemia Code(s): E78.5 - Hyperlipidemia, unspecified Status: Acute Assessment and Plan: Continue statin (5) DM type 2 (diabetes mellitus, type 2): Qualifiers: Chronic kidney disease stage: unspecified stage Diabetes mellitus complication detail: with chronic kidney disease Diabetes mellitus complication status: with kidney complications 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: without truck terminal manager use Qualified Code(s): E11.22 - Type 2 diabetes mellitus with diabetic chronic kidney disease Code(s): E11.9 - Type 2 diabetes mellitus without complications Status: Acute Assessment and Plan: Hold home diabetic medications Valdemar-Chris leyva HS SSI hga1c- unsure when was checked- will order for am labs (6) Hypothyroidism (acquired): Code(s): E03.9 - Hypothyroidism, unspecified Status: Acute Assessment and Plan: Continue levothyroxine (7) Elevated LFTs: Code(s): R79.89 - Other specified abnormal findings of blood chemistry Status: Acute Assessment and Plan: CMP in the morning (8) Depression: Qualifiers: Depression Type: unspecified Qualified Code(s): F32.9 - Major depressive disorder, single episode, unspecified Code(s): F32.9 - Major depressive disorder, single episode, unspecified Status: Acute Assessment and Plan: Continue Prozac Time Spent With Patient Time with patient: 25 - 35 minutes Subjective Date/time seen: 11/14/24 09:38 Interval history: 74-year-old female with past medical history of diabetes, CAD, CKD, diastolic CHF, hypertension and hyperlipidemia presents the hospital with nausea vomiting. Patient states that she recently went up on her semaglutide. She states that she has been on since semaglutide for about 3 weeks now. She states that the other 2 does increases she did fine with. She denies being sick lately, fevers chills, GI issues. Of work shows leukocytosis at 12.1, hemoglobin at 15.9, sodium of 135, BUN of 30, creatinine of 2.08 with baseline being around 1.7, total bili 1.7, AST. Abdomen pelvis show no acute findings. Pt is seen and examined. She is doing fairly well, throat sore from previous episodes of vomiting. She states she thought she was drinking enough but recent dose increase in ozempic made her nauseated and she was having several episodes of vomiting. She is using ozempic mostly for weight loss an family h/o heart and her insurance covers portion of it. Review of Systems Review of Systems: 12 systems were reviewed and are negativ e except for as per HPI. Exam Narrative: General: well appearing, appears stated age. HEENT: normocephalic, atraumatic. Mucous membranes moist. EOMI, PERRLA, bilateral sclera anicteric, no conjunctival injection. Neck supple without JVD, lymphadenopathy, or bruit. Respiratory: clear to ascultation bilaterally. No rales/rhonic/wheezes. Cardiovascular: Regular rate and rhythm, normal S1-S2 upon ascultation. No murmurs, rubs, or clicks. PMI is nondisplaced, capillary refill less than 3 second. Abdomen: Soft, round, no pulsatile masses, nondistended and nontender. No rebound, no guarding. No CVA tenderness, no hepatosplenomegaly. Bowel sounds present to all four quadrants. No high pitch or tinkling sounds, resonant to percussion. Extremities: No cyanosis, clubbing, or edema present. Pulses are palpable 2/2. Active ROM to all four extremities. Neuro: Alert and orientated x 4. PERRLA. Cranial nerves 2-12 intact without focal deficit. Skin: Warm, dry, and intact, without rash, erythema, or lesion. Psych: pleasant, cooperative, normal speech, normal affect, no hallucinations, no dysarthia Objective Data Vital Signs Vital Signs: Vital Signs - 24 hr 11/13/24 14:08 11/13/24 15:03 11/13/24 18:19 Temperature Pulse Rate 119 H 110 H 127 H Respiratory Rate 16 21 H 20 Blood Pressure 106/70 100/55 L 114/75 Pulse Oximetry 92 98 95 Oxygen Delivery Room Air 11/13/24 20:00 11/13/24 20:00 11/13/24 21:04 Temperature Pulse Rate 136 H Respiratory Rate Blood Pressure Pulse Oximetry 94 Oxygen Delivery Room Air Room Air 11/13/24 22:00 11/14/24 00:00 11/14/24 04:00 Temperature 98.7 F Pulse Rate 123 H 122 H 105 H Respiratory Rate 18 Blood Pressure 136/79 Pulse Oximetry 99 Oxygen Delivery 11/14/24 06:00 Temperature 97.2 F L Pulse Rate 112 H Respiratory Rate 18 Blood Pressure 113/64 Pulse Oximetry 96 Oxygen Delivery Intake/Output Intake/Output: Intake & Output 11/11/24 11/12/24 11/13/24 11/14/24 23:59 23:59 23:59 23:59 Intake Total 1999 1400 Output Total 1000 Balance 1999 400 Meds/Results Medications: Active Medications Generic Name Dose Route Start Last Admin Trade Name Freq PRN Reason Stop Dose Admin Acetaminophen 650 mg 11/13/24 18:38 Acetaminophen 325 Mg Tablet PO Q4H PRN Mild Pain (1-3) or Fever Hydrocodone Bitart/Acetaminophen 1 tab 11/13/24 17:45 Hydrocodone/Acetaminophen (*Crx) 5-325 Mg Tablet PO Q4H PRN Pain Rated 4-6 Albuterol 1 puff 11/13/24 19:09 Albuterol Sulfate (*Sp) Aerosol 1 Puff INHALATION Q4HRT PRN Shortness Of Breath Or Wheezing Aspirin 81 mg 11/14/24 09:00 11/14/24 09:35 Aspirin 81 Mg Enteric Tablet PO 81 mg DAILY JEFF Administration Atorvastatin Calcium 20 mg 11/14/24 09:00 11/14/24 09:35 Atorvastatin 20 Mg Tablet PO 20 mg DAILY JEFF Administration Dextrose 12.5 gm 11/13/24 18:38 Dextrose 50% 25 Gm/50 Ml Syringe IV PUSH PRN PRN Hypoglycemia Protocol Docusate Sodium 100 mg 11/13/24 18:38 Docusate Sodium 100 Mg Capsule PO BID PRN Constipation Enoxaparin Sodium 40 mg 11/14/24 09:00 11/14/24 09:35 Enoxaparin 40 Mg/0.4 Ml Syringe SUB-Q 40 mg DAILY JEFF Administration Fluoxetine HCl 20 mg 11/14/24 09:00 11/14/24 09:35 Fluoxetine Hcl 20 Mg Capsule PO 20 mg DAILY JEFF Administration Glucagon 1 mg 11/13/24 18:38 Glucagon For Inj 1 Mg Vial IM PRN PRN Hypoglycemia Protocol Glucose 15 gm 11/13/24 18:38 Glucose Oral Gel 15 Gm Of Glucse In 37.5 Gm Tube PO PRN PRN Hypoglycemia Protocol Sodium Chloride 1,000 mls @ 125 mls/hr 11/13/24 17:45 11/14/24 03:11 Normal Saline Iv IV CONT 125 mls/hr .Q8H JEFF Administration Dextrose 1,000 mls @ 100 mls/hr 11/13/24 18:38 Dextrose 5% 1,000 Ml IVPB PRN PRN Hypoglycemia Protocol Insulin Aspart 2 - 5 units 11/14/24 08:00 11/14/24 09:32 Insulin Aspart (*Bkc) 100 Units/Ml SUB-Q Not Given TIDWM JEFF Protocol Insulin Aspart 1 - 2 units 11/13/24 21:00 11/13/24 22:18 Insulin Aspart (*Bkc) 100 Units/Ml SUB-Q Not Given HS JEFF Protocol Latanoprost 1 drop 11/13/24 21:00 11/13/24 22:17 Latanoprost 0.005% Op Soln 2.5 Ml Btl LEFT EYE 1 drop HS JEFF Administration Levothyroxine Sodium 125 mcg 11/14/24 06:30 11/14/24 05:43 Levothyroxine Sodium 125 Mcg Tablet BY MOUTH 125 mcg DAILY@0630 JEFF Administration Losartan Potassium 50 mg 11/14/24 09:00 11/14/24 09:35 Losartan Potassium 50 Mg Tablet PO 50 mg DAILY JEFF Administration Miscellaneous Information 0 each 11/13/24 00:01 11/14/24 09:34 [place] Send To Pharmacy For Verification When Brought In XX 12/13/24 00:00 Not Given CLARIFY JEFF Montelukast Sodium 10 mg 11/14/24 09:00 11/14/24 09:35 Montelukast Sodium 10 Mg Tablet PO 10 mg DAILY JEFF Administration Morphine Sulfate 2 mg 11/13/24 17:45 Morphine Sulfate (*Crx) 2 Mg/Ml Inj IV PUSH Q2H PRN Pain Rated 7-10 Multivitamins Therapeutic 1 tablet 11/14/24 09:00 11/14/24 09:35 Multivitamins Therapeutic Tab (*Bkc) PO 1 tablet DAILY [facility] Administration Non-Formulary Medication 1 drop 11/13/24 19:15 Brimonidine-Timolol [Kamila] LEFT EYE 12/13/24 19:14 Q12H [facility] Ondansetron HCl 4 mg 11/13/24 17:45 Ondansetron Inj 4 Mg/2 Ml Vial IV PUSH Q4H PRN Nausea Phenol 1 spray 11/13/24 23:37 Phenol/Sod Pheno [place] (*Bkc) MUCOUS MEM PRN PRN Sore Throat Radiology Results: ITS Impressions Abdomen/Pelvis CT 11/13/24 16:27 IMPRESSION: 1. No acute abdominal abnormality. Labs Labs: Laboratory Results - last 24 hr 11/13/24 11/13/24 11/14/24 15:03 20:25 03:50 WBC 12.1 H 11.8 H RBC 5.04 4.34 Hgb 15.9 H 13.5 Hct 46.5 40.5 MCV 92.3 93.3 MCH 31.5 31.1 MCHC 34.2 33.3 RDW 14.3 14.6 H Plt Count 235 203 MPV 9.3 9.1 Immature Gran % (Auto) 0.3 0.4 Neut % (Auto) 86.2 H 75.8 H Lymph % (Auto) 12.2 L 10.2 L [place] % (Auto) 1.1 L 13.4 H Eos % (Auto) 0.0 0.0 Baso % (Auto) 0.2 0.2 Lymph # (Auto) 1.48 1.21 [place] # (Auto) 0.1 1.6 H Eos # (Auto) 0.0 0.0 Baso # (Auto) 0.0 0.0 Abs Immat Gran (auto) 0.04 H 0.05 H Absolute Neuts (auto) 10.5 H 9.0 H Absolute Nucleated RBC 0.000 0.000 Nucleated RBC % 0.0 0.0 Sodium 135 L 134 L Potassium 4.7 4.5 Chloride 102 106 Carbon Dioxide 21 L 22 Anion Gap 12 6 BUN 30 H 38 H Creatinine 2.08 H 2.01 H Estim Creat Clear Calc 26 27 Estimated GFR 23 L 24 L Glucose 90 137 H POC Capillary Glucose 97 Calcium 9.1 8.0 L Total Bilirubin 1.7 H 0.9 AST 101 H 144 H ALT 63 H 89 H Alkaline Phosphatase 99 67 Total Protein 6.2 L 5.3 L Albumin 3.6 2.7 L Lipase 89 Quality VTE Prophylaxis VTE prophylaxis: mechanical ordered and pharmacologic ordered
--- NOTE | 2024-11-14 12:55 | PHAR ---
11/14 HOME MED BRIMONIDINE-TIMOLOL (COMBIGAN) VERIFIED BY PHARMACY
[2024-11-14] MEDS: CALCIUM CARBONATE (TUMS) 500 MG (200 MG ELEMENTAL) PO (13:47)
[2024-11-14] MEDS: BRIMONIDINE TIMOLOL 1 EACH LEFT EYE (20:04)
[2024-11-14] MEDS: FAMOTIDINE 20 MG TABLET PO (20:04)
[2024-11-14] MEDS: LATANOPROST 0.005% OP SOLN 2.5 ML BTL 1 DROP LEFT EYE (20:22)
[2024-11-15] VITALS (10 sets, daily range): BP systolic 125–143; BP diastolic 65–72; PULSE 66–101; RESP 17–18; TEMP 36.2–36.7; O2SAT 96–98
[2024-11-15] MEDS: SODIUM CHLORIDE 0.9% IV 1,000 ML 125 ML IV CONT (04:00)
[2024-11-15 05:35] LABS: Hemoglobin A1C 4.8 % (<5.7)
[2024-11-15] MEDS: LEVOTHYROXINE SODIUM 125 MCG TABLET BY MOUTH (06:34)
[2024-11-15] MEDS: MULTIVITAMINS THERAPEUTIC TAB (*BKC) 1 TABLET PO (08:03)
[2024-11-15] MEDS: MONTELUKAST SODIUM 10 MG TABLET PO (08:04)
[2024-11-15] MEDS: LOSARTAN POTASSIUM 50 MG TABLET PO (08:04)
[2024-11-15] MEDS: ASPIRIN 81 MG ENTERIC TABLET PO (08:04)
[2024-11-15] MEDS: ATORVASTATIN 20 MG TABLET PO (08:04)
[2024-11-15] MEDS: FAMOTIDINE 20 MG TABLET PO ×2 (08:04→20:01)
[2024-11-15] MEDS: ENOXAPARIN 40 MG/0.4 ML SYRINGE SUB-Q (08:04)
[2024-11-15] MEDS: BRIMONIDINE TIMOLOL 1 EACH LEFT EYE ×2 (08:05→20:03)
--- NOTE | 2024-11-15 08:16 | P.PNIM_ITS ---
Progress Note: A&P Assessment and Plan (1) Vomiting: Code(s): R11.10 - Vomiting, unspecified Status: Acute Assessment and Plan: CT abdomen/pelvis: No acute abdominal abnormality Recently started on Ozempic 2 months ago. Dose recently increased, last taken on 11/12. IV hydration Zofran Nausea/vomiting has resolved. Likely related to Ozempic gastroparesis. Patient to remain on a low fat low fiber diet (2) Acute kidney injury superimposed on CKD: Code(s): N17.9 - Acute kidney failure, unspecified; N18.9 - Chronic kidney disease, unspecified Status: Acute Assessment and Plan: BUN/Cr 30/2.08 with GFR 23 on admission, baseline seems to run ~ 1.3 - 1.7mg/dl in the last few years. Follows with nephrology Dr. Krishnamurthy, last seen 10/05/24 Likely secondary to dehydration related to patients nausea/vomiting 2 L IV fluid given emergency room, remains on NS 100 ml/hr BUN/Cr slightly improving with IV fluids, currently downtrending at 31/1.72 on am labs Monitor I/O Renally dose medications Avoid nephrotoxic medications (3) Elevated LFTs: Code(s): R79.89 - Other specified abnormal findings of blood chemistry Status: Acute Assessment and Plan: LFTs elevated on admission tot bili 1.7, AST 101, ALT 63, alk phos WNL Has been uptrending since early 10/2024. Previously WNL in 03/2024 Lipase WNL Possibly medication induced however no recent medication changes, currently on atorvastatin, prozac, synthroid, and losartan Liver enzymes continue to rise, currently AST 425, and ALT 224. Alk phos and tot bili WNL. CT abdomen/pelvis showed fatty infiltration of the liver Prior US abdomen 10/23: Echogenic appearing pancreas, of doubtful clinical significance unless pancreatic labs are abnormal.Cirrhosis.Status post cholecystectomy. No common bile duct dilation.Ascites. 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: without group home use Qualified Code(s): E11.22 - Type 2 diabetes mellitus with diabetic chronic kidney disease Code(s): E11.9 - Type 2 diabetes mellitus without complications Status: Acute Assessment and Plan: - hypoglycemia protocol - POC blood glucose ACHS - home medication - ozempic - correct regimen ordered - low dose TIDWM and HS - A1C 4.8 (5) Hypothyroidism (acquired): Code(s): E03.9 - Hypothyroidism, unspecified Status: Acute Assessment and Plan: Continue levothyroxine 125 mcg daily (6) Hyperlipidemia: Qualifiers: Hyperlipidemia type: mixed hyperlipidemia Qualified Code(s): E78.2 - Mixed hyperlipidemia Code(s): E78.5 - Hyperlipidemia, unspecified Status: Acute Assessment and Plan: Continue atorvastatin 20 mg daily (7) Coronary artery disease: Qualifiers: Associated angina: unspecified whether angina present Coronary Disease- Associated Artery/Lesion type: unspecified vessel or lesion type [place] vs. transplanted heart: [place] heart Qualified Code(s): I25.10 - Atherosclerotic heart disease of [place] coronary artery without angina pectoris Code(s): I25.10 - Atherosclerotic heart disease of [place] coronary artery without angina pectoris Status: Acute Assessment and Plan: Chronic Continue aspirin, Lipitor, continue Cozaar (8) Depression: Qualifiers: Depression Type: unspecified Qualified Code(s): F32.9 - Major depressive disorder, single episode, unspecified Code(s): F32.9 - Major depressive disorder, single episode, unspecified Status: Acute Assessment and Plan: Continue Prozac 20 mg daily Time Spent With Patient Time with patient: 25 - 35 minutes Subjective Date/time seen: 11/15/24 08:16 Interval history: 74 year old female with past medical history of CAD, DM, CKD, diastolic dysfunction, vertigo, SCT, HTN, HLD, and hypothyroidism presents to the hospital for nausea and vomiting. Patient is pleasant sitting up comfortably in bed. She states that the nausea/vomiting has resolved since admission. She is tolerating her diet well and denies any associated abdominal pain. Patient has no other complaints denying chest pain, shortness a breath, palpitations. Patient was noted to have continued elevation of her LFTs on a.m. labs. She denies any history of liver impairment although prior imaging does show cirrhosis on ultrasound. Patient denies heavy alcohol use or family history of liver disease. Review of Systems Review of Systems: All systems reviewed & are unremarkable except as noted in HPI and below Exam Narrative: AF HR 73 RR 18 SpO2 98 BP 143/72 General: female in no acute respiratory distress who is nontoxic appearing, sitting up in bed. HEENT: Normocephalic. Atraumatic. Extraocular movement intact. Sclera clear and anicteric. No facial asymmetry. Chest: Lungs are clear to auscultation bilaterally. No wheezes or crackles. CV: Heart was regular rate and rhythm. Abd: Abdomen was soft. Nontender. Nondistended. Positive bowel sounds. Ext: No clubbing, cyanosis, or edema. DP pulses bilaterally. Neuro: Patient is alert. Speech is clear. Objective Data Vital Signs Vital Signs: Vital Signs - 24 hr 11/14/24 09:40 11/14/24 09:40 11/14/24 12:00 Temperature Pulse Rate 78 91 Respiratory Rate Blood Pressure Pulse Oximetry Oxygen Delivery Room Air Fraction of Inspired Oxygen 11/14/24 15:04 11/14/24 16:00 11/14/24 20:00 Temperature 97.5 F L Pulse Rate 80 78 77 Respiratory Rate 18 Blood Pressure 117/66 Pulse Oximetry 96 Oxygen Delivery Fraction of Inspired Oxygen 11/14/24 20:31 11/14/24 21:19 11/15/24 00:00 Temperature 98.4 F Pulse Rate 76 74 96 Respiratory Rate 18 20 Blood Pressure 123/64 Pulse Oximetry 99 93 Oxygen Delivery Room Air Fraction of Inspired Oxygen 21 11/15/24 04:00 11/15/24 04:43 11/15/24 08:00 Temperature 98.1 F 97.7 F Pulse Rate 101 H 91 79 Respiratory Rate 17 18 Blood Pressure 128/65 143/72 H Pulse Oximetry 96 98 Oxygen Delivery Fraction of Inspired Oxygen 11/15/24 08:04 11/15/24 08:04 Temperature Pulse Rate 79 92 Respiratory Rate 18 Blood Pressure Pulse Oximetry 98 Oxygen Delivery Room Air Fraction of Inspired Oxygen 21 Intake/Output Intake/Output: Intake & Output 11/12/24 11/13/24 11/14/24 11/15/24 23:59 23:59 23:59 23:59 Intake Total 1999 3640 1050 Output Total 1999 700 Balance 1999 1640 350 Meds/Results Medications: Active Medications Generic Name Dose Route Start Last Admin Trade Name Freq PRN Reason Stop Dose Admin Acetaminophen 650 mg 11/13/24 18:38 Acetaminophen 325 Mg Tablet PO Q4H PRN Mild Pain (1-3) or Fever Hydrocodone Bitart/Acetaminophen 1 tab 11/13/24 17:45 Hydrocodone/Acetaminophen (*Crx) 5-325 Mg Tablet PO Q4H PRN Pain Rated 4-6 Albuterol 1 puff 11/13/24 19:09 Albuterol Sulfate (*Sp) Aerosol 1 Puff INHALATION Q4HRT PRN Shortness Of Breath Or Wheezing Aspirin 81 mg 11/14/24 09:00 11/15/24 08:04 Aspirin 81 Mg Enteric Tablet PO 81 mg DAILY JEFF Administration Atorvastatin Calcium 20 mg 11/14/24 09:00 11/15/24 08:04 Atorvastatin 20 Mg Tablet PO 20 mg DAILY JEFF Administration Calcium Carbonate 200 mg 11/14/24 12:10 11/14/24 13:47 Calcium Carbonate (Tums) 500 Mg (200 Mg Elemental) PO 200 mg Q6H PRN Administration Indigestion Dextrose 12.5 gm 11/13/24 18:38 Dextrose 50% 25 Gm/50 Ml Syringe IV PUSH PRN PRN Hypoglycemia Protocol Docusate Sodium 100 mg 11/13/24 18:38 Docusate Sodium 100 Mg Capsule PO BID PRN Constipation Enoxaparin Sodium 40 mg 11/14/24 09:00 11/15/24 08:04 Enoxaparin 40 Mg/0.4 Ml Syringe SUB-Q 40 mg DAILY JEFF Administration Famotidine 20 mg 11/14/24 21:00 11/15/24 08:04 Famotidine 20 Mg Tablet PO 20 mg Q12HR JEFF Administration Fluoxetine HCl 20 mg 11/14/24 09:00 11/15/24 08:03 Fluoxetine Hcl 20 Mg Capsule PO 20 mg DAILY JEFF Administration Glucagon 1 mg 11/13/24 18:38 Glucagon For Inj 1 Mg Vial IM PRN PRN Hypoglycemia Protocol Glucose 15 gm 11/13/24 18:38 Glucose Oral Gel 15 Gm Of Glucse In 37.5 Gm Tube PO PRN PRN Hypoglycemia Protocol Sodium Chloride 1,000 mls @ 125 mls/hr 11/13/24 17:45 11/15/24 04:00 Normal Saline Iv IV CONT 125 mls/hr .Q8H JEFF Administration Dextrose 1,000 mls @ 100 mls/hr 11/13/24 18:38 Dextrose 5% 1,000 Ml IVPB PRN PRN Hypoglycemia Protocol Insulin Aspart 2 - 5 units 11/14/24 08:00 11/15/24 08:05 Insulin Aspart (*Bkc) 100 Units/Ml SUB-Q Not Given TIDWM JEFF Protocol Insulin Aspart 1 - 2 units 11/13/24 21:00 11/14/24 20:28 Insulin Aspart (*Bkc) 100 Units/Ml SUB-Q Not Given HS JEFF Protocol Latanoprost 1 drop 11/13/24 21:00 11/14/24 20:22 Latanoprost 0.005% Op Soln 2.5 Ml Btl LEFT EYE 1 drop HS JEFF Administration Levothyroxine Sodium 125 mcg 11/14/24 06:30 11/15/24 06:34 Levothyroxine Sodium 125 Mcg Tablet BY MOUTH 125 mcg DAILY@0630 JEFF Administration Losartan Potassium 50 mg 11/14/24 09:00 11/15/24 08:04 Losartan Potassium 50 Mg Tablet PO 50 mg DAILY JEFF Administration Miscellaneous Information 0 each 11/13/24 00:01 11/14/24 09:34 Kamila Send To Pharmacy For Verification When Brought In XX 12/13/24 00:00 Not Given CLARIFY JEFF Montelukast Sodium 10 mg 11/14/24 09:00 11/15/24 08:04 Montelukast Sodium 10 Mg Tablet PO 10 mg DAILY JEFF Administration Morphine Sulfate 2 mg 11/13/24 17:45 Morphine Sulfate (*Crx) 2 Mg/Ml Inj IV PUSH Q2H PRN Pain Rated 7-10 Multivitamins Therapeutic 1 tablet 11/14/24 09:00 11/15/24 08:03 Multivitamins Therapeutic Tab (*Bkc) PO 1 tablet DAILY JEFF Administration Home Med - 1 drop 11/14/24 21:00 11/15/24 08:05 Brimonidine-Timolol LEFT EYE 12/14/24 20:59 1 drop [Kamila] 0.2-0.5 % Q12HR JEFF Administration Drops Ondansetron HCl 4 mg 11/13/24 17:45 Ondansetron Inj 4 Mg/2 Ml Vial IV PUSH Q4H PRN Nausea Phenol 1 spray 11/13/24 23:37 Phenol/Sod Pheno [place] (*Bkc) MUCOUS MEM PRN PRN Sore Throat Radiology Results: ITS Impressions Abdomen/Pelvis CT 11/13/24 16:27 IMPRESSION: 1. No acute abdominal abnormality. Labs Labs: Laboratory Results - last 24 hr 11/14/24 11/14/24 11/14/24 08:06 11:31 16:41 POC Capillary Glucose 123 H 119 H 105 Hemoglobin A1c 11/14/24 11/15/24 11/15/24 20:28 04:19 07:55 POC Capillary Glucose 116 H 87 Hemoglobin A1c 4.8 Quality VTE Prophylaxis VTE prophylaxis: mechanical ordered and pharmacologic ordered
[2024-11-15 08:39] LABS: Hematocrit 38.3 % (37.0-47.0); Hemoglobin 12.7 g/dL (12.0-15.0); Mean Corpuscular HGB Conc 33.2 g/dl (32-36); Mean Corpuscular Hemoglobin 31.5 pg (26-34); Mean Corpuscular Volume 95.0 fl (80-100); Platelet Count Result 144 k/mm3 (150-375); Red Blood Count 4.03 M/mm3 (4.2-5.4); White Blood Count 5.7 K/mm3 (4.5-10.0)
[2024-11-15 08:48] LABS: Alanine Aminotransferase 224 U/L (6-35); Albumin Level 2.7 g/dL (3.5-5.1); Alkaline Phosphatase 76 U/L (38-126); Anion Gap 3 mmol/L (4-12); Aspartate Amino Transferase 425 U/L (14-36); Bilirubin,Total 1.0 mg/dL (0.2-1.3); Blood Urea Nitrogen 31 mg/dL (7-17); Calcium 7.9 mg/dL (8.4-10.2); Carbon Dioxide 22 mmol/L (22-30); Chloride 111 mmol/L (98-107); Estimated CRCL calculation 31 ml/min; Estimated Glomerular Filt Rate 29; Glucose 85 mg/dL (65-110); Potassium 4.6 mmol/L (3.4-5.0); Sodium 136 mmol/L (137-145); Total Protein 5.3 g/dL (6.3-8.2)
[2024-11-15 09:44] LABS: Hepatitis B Surface Antigen Negative (Negative)
[2024-11-15 09:49] LABS: HAV RESULT Negative (Negative); Hepatitis B Core IgM Result Negative (Negative)
[2024-11-15] MEDS: SODIUM CHLORIDE 0.9% IV 1,000 ML 100 ML IV CONT ×2 (12:08→22:50)
--- NOTE | 2024-11-15 16:49 | WPDGICN ---
Assessment and Plan Assessment and plan (1) Elevated LFTs: Code(s): R79.89 - Other specified abnormal findings of blood chemistry Status: Acute Assessment and Plan: The patient has had worsening elevated transaminases for the past three weeks and is now admitted for volume depletion due to severe nausea and vomiting. She also has uncontrolled atrial fibrillation. The abrupt increase in her transaminase levels may be due to a degree of hepatic ischemia caused by these factors. Since her arrhythmia is controlled and her fluid volume has been restored, we expect her transaminase levels to decrease. However, the possibility of an underlying chronic liver disease is still being investigated due to conflicting imaging results from a prior ultrasound and a recent CT scan (she has never had cholecystectomy and the ultrasound besides describing status post cholecystectomy describes a small nodular liver not evident on CT scan....) This discrepancy has been pointed out to radiology. To complete the workup, we will obtain additional lab tests, including antinuclear antibody (FRANCK) and smooth muscle antibody (SMA). 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 GI Consult Note Consult date/time: 11/15/24 16:49 Reason for consult: increased transaminase levels HPI: Elizabeth De Leon, a 74-year-old female, was admitted on 11/13/2024 due to 12 hours of persistent nausea and vomiting. She believes this episode was caused by a recent increase in her weekly semaglutide injections. She denies any history of alcohol or illicit drug use. Her medical history includes diabetes, chronic kidney disease, and coronary artery disease with diastolic dysfunction. Her home medications include Lipitor 40 mg daily. Lab results show a significant rise in liver enzymes. On 11/14/2024, her AST was 144 and ALT was 89, which increased to AST 425 and ALT 224 by 11/15/2024. Her total bilirubin and alkaline phosphatase remained stable at 1.0 and 26, respectively, while her albumin was 2.7. Hepatitis A, B and C profiles were negative. There is conflicting imaging information. An abdominal ultrasound from 10/23/2024 noted a small, nodular liver consistent with cirrhosis, along with perihepatic and right lower quadrant ascites. However, a CT scan on 11/13/2024 showed a non-cirrhotic liver, a distended gallbladder, and no ascites. Review of Systems Review of Systems: Last echocardiogram in the chart is from 2019, showing grade 1 diastolic dysfunction and normal ejection fraction. Her most recent EKG shows atrial fibrillation with rapid ventricular response. [facility] Past Medical History Medical History (Updated 11/15/24 @ 08:26 by Katia Segal PA-C) BMI 29.0-29.9,adult Weight loss, intentional BMI 30.0-30.9,adult FARIA (dyspnea on exertion) Hospital discharge follow-up Coronary artery disease Hammer toes of both feet Osteoporosis DM type 2 (diabetes mellitus, type 2) Spider bite Primary osteoarthritis of both feet Laceration of skin of left lower leg Depressed mood Cellulitis and abscess of face Glaucoma History of retinal tear Light sensitivity CKD (chronic kidney disease) Hearing loss UTI symptoms Vitamin D deficiency Hammertoe of right foot Hematuria, microscopic Leukocytes in urine BMI 34.0-34.9,adult Encounter for routine adult health examination with abnormal findings Chronic low back pain Encounter for preventive health examination DJD (degenerative joint disease) of knee Vertigo Sinus drainage Colon cancer screening Constipation Elevated LFTs Diastolic dysfunction Supraventricular tachycardia Heart palpitations BMI 32.0-32.9,adult Follow up BMI 31.0-31.9,adult Light headedness Esophageal spasm Abnormal finding of blood chemistry Encounter for routine adult health examination without abnormal findings Anxiety Diabetes Arthritis HTN (hypertension) Abnormal EKG Benign essential hypertension Elevated serum creatinine Elevated glucose BMI 33.0-33.9,adult DJD (degenerative joint disease), multiple sites Hypothyroidism (acquired) Hyperlipidemia On penitent[facility] drug therapy Depression Surgical History Surgical History H/O repair of rotator cuff H/O: hysterectomy Status post cataract extraction History of total right knee replacement History of knee replacement Family History Family History Sibling Acute myocardial infarction, Onset Age: 63 Patient's brother is Family history of cardiovascular disease Family history of coronary artery disease Father Family history of heart disease in male family member before age 55 Acute myocardial infarction Family history of cardiovascular disease Family history of coronary artery disease Mother Hypertension Cerebrovascular accident Social History Social History Smoking status: Never smoker Second hand tobacco smoke exposure: No Alcohol intake: current Substance use: never Substance use type: does not use Other substance usage details: Pt states she drinks very rarely Do You Feel Safe in your Home?: Yes Lack of Transportation: No Lack of Food: Never True Current Housing: I Have Housing Concerned About Future Housing: No Difficulty Paying Gas/Electric Bills: No Difficulty Paying for Meds: No Currently Unemployed: No Education: Master's Degree or Higher Difficulty w/ Childcare or Family Care: No Living arrangements: with family Gender identity (if verbalized by the patient): Female Spiritual care concerns: No Agree to blood products: Yes Meds Home Medications and Allergies Home Medications ?Medication ?Instructions ?Recorded ?Confirmed ?Type aspirin 81 mg tablet,delayed 81 mg PO DAILY 07/12/20 11/13/24 History release (Adult Low Dose Aspirin) latanoprost 0.005 % eye drops 1 drp LEFT EYE HS 01/10/22 11/13/24 History brimonidine 0.2 %-timolol 0.5 % 1 drp LEFT EYE Q12H 10/28/22 11/13/24 History eye drops (Combigan) multivitamin (One Daily 1 tablet PO DAILY 10/28/22 11/13/24 History Multivitamin tablet) biotin 1 mg tablet 1 mg PO DAILY 09/05/23 11/13/24 History acetaminophen 500 mg tablet 1,000 mg PO Q6H PRN Pain or fever 09/13/23 11/13/24 History (Tylenol Extra Strength) ascorbic acid (vitamin C) 1,000 mg 1 g PO DAILY 09/13/23 11/13/24 History tablet cholecalciferol (vitamin D3) 25 25 mcg PO DAILY 09/13/23 11/13/24 History mcg (1,000 unit) capsule fluoxetine 20 mg capsule 20 mg PO DAILY #90 caps 06/02/24 11/13/24 Rx losartan 50 mg tablet 50 mg PO DAILY #90 tabs 06/02/24 11/13/24 Rx atorvastatin 20 mg tablet 20 mg PO DAILY #90 tabs 08/08/24 11/13/24 Rx montelukast 10 mg tablet 10 mg PO DAILY #90 tabs 08/08/24 11/13/24 Rx niacin 1,000 mg tablet,extended See Rx Instructions .Route 08/08/24 11/13/24 Rx release 24 hr .COMPLEX #90 tabs Xigduo XR 10 mg-1,000 mg 1 tablet PO DAILY #90 ea 08/30/24 11/13/24 Rx tablet,extended release (dapaglifloz propaned-metformin) icosapent ethyl 1 gram capsule See Rx Instructions .Route 08/30/24 11/13/24 Rx .COMPLEX #360 caps mecobalamin (vitamin B12) 1,000 1,000 mcg sublingual DAILY 09/01/24 11/13/24 History mcg disintegrating tablet,sublingual levothyroxine 125 mcg tablet See Rx Instructions .Route 09/20/24 11/13/24 Rx (Synthroid) .COMPLEX #90 tabs albuterol sulfate 90 mcg/actuation 1 puff inhalation Q4H PRN 10/25/24 11/13/24 Rx aerosol inhaler (Ventolin HFA) shortness of breath or wheezing #8.5 grams semaglutide 1 mg/dose (4 mg/3 mL) 1 mg (0.75 mL) subcut WEEKLY #3 mL 11/01/24 11/13/24 Rx subcutaneous pen injector (Ozempic) Allergies Allergy/AdvReac Type Severity Reaction Status Date / Time Sulfa (Sulfonamide Allergy Nausea Verified 11/13/24 14:19 Antibiotics) Vital Signs Vital Signs - 24 hr 11/14/24 20:00 11/14/24 20:31 11/14/24 21:19 Temperature 98.4 F Pulse Rate 77 76 74 Respiratory Rate 18 20 Blood Pressure 123/64 Pulse Oximetry 99 93 Oxygen Delivery Room Air Fraction of Inspired Oxygen 11/15/24 00:00 11/15/24 04:00 11/15/24 04:43 Temperature 98.1 F Pulse Rate 96 101 H 91 Respiratory Rate 17 Blood Pressure 128/65 Pulse Oximetry 96 Oxygen Delivery Fraction of Inspired Oxygen 11/15/24 08:00 11/15/24 08:04 11/15/24 08:04 Temperature 97.7 F Pulse Rate 79 79 92 Respiratory Rate 18 18 Blood Pressure 143/72 H Pulse Oximetry 98 98 Oxygen Delivery Room Air Fraction of Inspired Oxygen 11/15/24 12:00 11/15/24 13:25 Temperature 97.6 F Pulse Rate 73 67 Respiratory Rate 18 Blood Pressure 125/67 Pulse Oximetry 98 Oxygen Delivery Fraction of Inspired Oxygen Exam Const: General: cooperative and healthy appearing Resp: Effort & Inspection: normal respiratory effort and able to speak in complete sentences Auscultation: clear to auscultation bilaterally Cardio: Rate: regular rate Rhythm: regular rhythm GI: Inspection: normal to inspection GI Palp: No No hepatosplenomegaly present Auscultation: normal bowel sounds Rectal Exam: deferred Skin: General skin exam: normal color Psych: Appearance: grossly normal Mental Status: mental status grossly normal Results Labs 11/15/24 04:15 11/15/24 04:19 Labs: Short CBC 11/15/24 Range/Units 04:15 WBC 5.7 (4.5-10.0) K/mm3 Hgb 12.7 (12.0-15.0) g/dL Hct 38.3 (37.0-47.0) % Plt Count 144 L (150-375) k/mm3 BMP 11/15/24 04:19 Sodium 136 L Potassium 4.6 Chloride 111 H Carbon Dioxide 22 BUN 31 H Creatinine 1.72 H Glucose 85 Calcium 7.9 L Liver Function 11/15/24 Range/Units 04:19 Total Bilirubin 1.0 (0.2-1.3) mg/dL AST 425 H (14-36) U/L ALT 224 H (6-35) U/L Alkaline Phosphatase 76 (38-126) U/L Albumin 2.7 L (3.5-5.1) g/dL
[2024-11-15] MEDS: LATANOPROST 0.005% OP SOLN 2.5 ML BTL 1 DROP LEFT EYE (20:03)
[2024-11-16] VITALS (10 sets, daily range): BP systolic 131–159; BP diastolic 73–86; PULSE 66–114; RESP 18; TEMP 36.3–36.9; O2SAT 98–100
--- NOTE | 2024-11-16 | ECHO_ITS ---
Patient Info Name: Elizabeth De Leon Age: 74 years : 1950 Gender: Female Ht: 70 in Wt: 208 lbs BSA: 2.18 m2 HR: 67 bpm BP: 144 / 82 mmHg Technical Quality: Good Exam Date: 11/16/2024 11:37 AM Patient Status: I Admit Date: 11/14/2024 Exam Type: CA echo doppler color flow Complete two-dimensional, color flow and Doppler transthoracic echocardiogram is performed. Staff Referring Physician: Katia Segal Associate Teacher: Lorena Major Attending Provider: Stoney Archuleta Summary 1. Complete two-dimensional, color flow and Doppler transthoracic echocardiogram is performed. 2. Left ventricular chamber dimension is normal. 3. Left ventricular systolic function is normal, estimated at 60-65. 4. The left ventricular diastolic function is abnormal. 5. E/e' 12 is mildly elevated. 6. Left atrial chamber dimension is mildly enlarged. 7. There is mild aortic valve sclerosis. 8. There is mild mitral valve regurgitation. Left Ventricle E/e' 12 is mildly elevated. Left ventricular chamber dimension is normal. Left ventricular systolic function is normal, estimated at 60-65. The left ventricular diastolic function is abnormal. Right Ventricle Right ventricular chamber dimension is normal. Right ventricular systolic function is normal. Left Atria Left atrial chamber dimension is mildly enlarged. Right Atria Right atrial chamber dimension is normal. Aortic Valve The aortic valve is trileaflet. There is mild aortic valve sclerosis. There is no aortic valve stenosis. There is no aortic valve regurgitation. Pulmonic Valve There is no pulmonic regurgitation. Mitral Valve There is no mitral valve stenosis. There is mild mitral valve regurgitation. Tricuspid Valve There is no tricuspid valve regurgitation. Pericardium/Pleural There is no pericardial effusion. Inferior Vena Cava Normal inferior vena cava with >50% collapse upon inspiration consistent with normal right atrial pressure, 5 mmHg. Aorta The aortic root size at the sinus of Valsalva is normal. Left Ventricular Outflow Tract Name Value Normal LVOT 2D LVOT Diameter 2.0 cm LVOT Doppler LVOT Peak Velocity 109 cm/s LVOT Peak Gradient 5 mmHg LVOT Mean Gradient 3 mmHg LVOT VTI 25 cm LVOT Stroke Volume 75 ml LVOT CO 5.0 l/min LVOT CI 2.3 l/min/m2 Pulmonic Valve Name Value Normal RVOT Doppler RVOT Peak Velocity 54 cm/s RVOT Peak Gradient 1 mmHg PV Doppler PV Peak Velocity 93 cm/s PV Peak Gradient 3 mmHg Mitral Valve Name Value Normal MV Diastolic Function MV E Peak Velocity 101 cm/s MV A Peak Velocity 92 cm/s MV E/A 1.1 MV Decel Time (PW) 196 ms MV Annular TDI MV E/e' (Septal) 15.2 MV E/e' (Lateral) 11.3 MV E/e' (Average) 13.2 Tricuspid Valve Name Value Normal Estimated PAP/RSVP RA Pressure 5 mmHg <=5 Aortic Valve Name Value Normal AV Doppler AV Peak Velocity 129 cm/s AV Peak Gradient 7 mmHg AV Area (Cont Eq Aquiles) 2.6 cm2 AV DI (Aquiles) 0.85 AV Regurgitation 2D LVOT Area 3.0 cm2 Ventricles Name Value Normal LV Dimensions 2D/MM IVS Diastolic Thickness (2D) 0.8 cm 0.6-1.0 LVID Diastole (2D) 4.5 cm 3.8-5.2 LVIW Diastolic Thickness (2D) 0.9 cm 0.6-0.9 LVID Systole (2D) 2.8 cm 2.2-3.5 LVOT Diameter 2.0 cm LV Mass (2D Cubed) 131.58 g 67.00-162.00 LV Mass Index (2D Cubed) 60 g/m2 43-95 Relative Wall Thickness (2D) 0.41 <=0.42 LV Fractional Shortening/Ejection Fraction 2D/MM LV Fractional Shortening (2D) 38 % 27-45 LV EF (2D Teichholz) 68 % LV Diastolic Volume (4C MOD) 104 ml LV EF (4C MOD) 54 % LV Diastolic Volume (2C MOD) 112 ml LV EF (2C MOD) 58 % LV Diastolic Volume (BP MOD) 108 ml 46-106 LV Diastolic Volume Index (BP MOD) 49 ml/m2 29-61 LV Systolic Volume (BP MOD) 47 ml 14-42 LV Systolic Volume Index (BP MOD) 21 ml/m2 8-24 LV EF (BP MOD) 57 % 54-74 LV Diastolic Length (4C) 8.0 cm LV Systolic Length (4C) 7.1 cm LV Stroke Volume (4C MOD) 56 ml Atria Name Value Normal LA Dimensions LA Volume (4C A-L) 47 ml LA Volume (BP A-L) 62 ml RA Dimensions RA Systolic Major Hughes Length (4C) 5.8 cm 2.2-2.8 RA Area (4C) 14.2 cm2 <=18.0 Report Signatures
[2024-11-16 05:04] LABS: Hematocrit 38.8 % (37.0-47.0); Hemoglobin 13.0 g/dL (12.0-15.0); Immature Platelet Fraction Pct 1.3 % (0.9-11.2); Mean Corpuscular HGB Conc 33.5 g/dl (32-36); Mean Corpuscular Hemoglobin 31.9 pg (26-34); Mean Corpuscular Volume 95.1 fl (80-100); Platelet Count Result 131 k/mm3 (150-375); Red Blood Count 4.08 M/mm3 (4.2-5.4); White Blood Count 5.0 K/mm3 (4.5-10.0)
[2024-11-16 05:35] LABS: Alanine Aminotransferase 252 U/L (6-35); Albumin Level 3.0 g/dL (3.5-5.1); Alkaline Phosphatase 76 U/L (38-126); Anion Gap 4 mmol/L (4-12); Aspartate Amino Transferase 335 U/L (14-36); Bilirubin,Total 1.2 mg/dL (0.2-1.3); Blood Urea Nitrogen 21 mg/dL (7-17); Calcium 8.4 mg/dL (8.4-10.2); Carbon Dioxide 25 mmol/L (22-30); Chloride 109 mmol/L (98-107); Estimated CRCL calculation 37 ml/min; Estimated Glomerular Filt Rate 35; Glucose 91 mg/dL (65-110); Potassium 4.5 mmol/L (3.4-5.0); Sodium 138 mmol/L (137-145); Total Protein 5.6 g/dL (6.3-8.2)
[2024-11-16] MEDS: LEVOTHYROXINE SODIUM 125 MCG TABLET BY MOUTH (05:51)
--- NOTE | 2024-11-16 08:29 | P.PNIM_ITS ---
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 No anticoagulation recommended at this time or beta hamzah. Recommend a longer Holter monitor of 30 days be placed to further assess patients arrhythmia prior to discharge 48 hr holter monitor 11/01 Predominant rhythm is sinus rhythm. HR range 56-154 bpm; average HR 78 bpm. 172 premature supraventricular complexes and 16 supraventricular couplets. 50 runs of atrial tachycardia, fastest at 154 bpm and longest lasting 359 beats. 28 premature ventricular complexes. No ventricular tachycardia. No sinoatrial or atrioventricular blocks. No significant pauses greater than 2 seconds. (2) Elevated LFTs: Code(s): R79.89 - Other specified abnormal findings of blood chemistry Status: Acute Assessment and Plan: LFTs elevated on admission tot bili 1.7, AST 101, ALT 63, alk phos WNL Has been uptrending since early 10/2024. Previously WNL in 03/2024 Lipase WNL Possibly medication induced however no recent medication changes, currently on atorvastatin, prozac, synthroid, and losartan Liver enzymes remain elevated however stable, currently AST 335, and ALT 252. Alk phos and tot bili WNL. CT abdomen/pelvis showed fatty infiltration of the liver Prior US abdomen 10/23: Echogenic appearing pancreas, of doubtful clinical significance unless pancreatic labs are abnormal.Cirrhosis.Status post cholecystectomy. No common bile duct dilation.Ascites. Hepatitis panel negative GI consulted, appreciate recommendations Patient had uncontrolled atrial fibrillation. Abrupt increase in her transaminase levels may be due to a degree of hepatic ischemia caused by these factors. Since her arrhythmia is controlled and her fluid volume has been restored, we expect her transaminase levels to decrease. 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 (3) Vomiting: Code(s): R11.10 - Vomiting, unspecified Status: Acute Assessment and Plan: CT abdomen/pelvis: No acute abdominal abnormality Recently started on Ozempic 2 months ago. Dose recently increased, last taken on 11/12. IV hydration Zofran Nausea/vomiting has resolved. Likely related to Ozempic gastroparesis. Patient to remain on a low fat low fiber diet (4) Acute kidney injury superimposed on CKD: Code(s): N17.9 - Acute kidney failure, unspecified; N18.9 - Chronic kidney disease, unspecified Status: Acute Assessment and Plan: BUN/Cr 30/2.08 with GFR 23 on admission, baseline seems to run ~ 1.3 - 1.7mg/dl in the last few years. Follows with nephrology Dr. Krishnamurthy, last seen 10/05/24 Likely secondary to dehydration related to patients nausea/vomiting BUN/Cr returned to baseline with IV fluids, IV fluids discontinued Monitor I/O Renally dose medications Avoid nephrotoxic medications Resolved. (5) DM type 2 (diabetes mellitus, type 2): Qualifiers: Chronic kidney disease stage: unspecified stage Diabetes mellitus complication detail: with chronic kidney disease Diabetes mellitus complication status: with kidney complications Diabetes mellitus intermediate designer insulin use: without intermediate use Qualified Code(s): E11.22 - Type 2 diabetes mellitus with diabetic chronic kidney disease Code(s): E11.9 - Type 2 diabetes mellitus without complications Status: Acute Assessment and Plan: - hypoglycemia protocol - POC blood glucose ACHS - home medication - ozempic - correct regimen ordered - low dose TIDWM and HS - A1C 4.8 Glucose well controlled. Continue to monitor. (6) Hypothyroidism (acquired): Code(s): E03.9 - Hypothyroidism, unspecified Status: Acute Assessment and Plan: Continue levothyroxine 125 mcg daily (7) Hyperlipidemia: Qualifiers: Hyperlipidemia type: mixed hyperlipidemia Qualified Code(s): E78.2 - Mixed hyperlipidemia Code(s): E78.5 - Hyperlipidemia, unspecified Status: Acute Assessment and Plan: Continue atorvastatin 20 mg daily (8) Coronary artery disease: Qualifiers: Associated angina: unspecified whether angina present Coronary Disease- Associated Artery/Lesion type: unspecified vessel or lesion type [place] vs. transplanted heart: [place] heart Qualified Code(s): I25.10 - Atherosclerotic heart disease of [place] coronary artery without angina pectoris Code(s): I25.10 - Atherosclerotic heart disease of [place] coronary artery without angina pectoris Status: Acute Assessment and Plan: Chronic Continue aspirin, Lipitor, continue Cozaar (9) Depression: Qualifiers: Depression Type: unspecified Qualified Code(s): F32.9 - Major depressive disorder, single episode, unspecified Code(s): F32.9 - Major depressive disorder, single episode, unspecified Status: Acute Assessment and Plan: Continue Prozac 20 mg daily Time Spent With Patient Time with patient: 25 - 35 minutes Subjective Date/time seen: 11/16/24 08:29 Interval history: 74 year old female with past medical history of CAD, DM, CKD, diastolic dysfunction, vertigo, SCT, HTN, HLD, and hypothyroidism presents to the hospital for nausea and vomiting. Patient is pleasant sitting up comfortably in bed. She continues to endorse pain with swallowing that she related to the prior vomiting. She denies any difficulty with swallowing or feeling as though food is getting stuck. Patient denies any nausea/vomiting and diarrhea. She is tolerating her diet well. Discussed patient with GI who continues to monitor her LFTs and is waiting on more liver labs at this point. They again note concern for ischemic hepatopathy for the elevated LFTs. Given the EKG showing aflutter/tachycardia, discussed cardiology BACK [employer] WORKER who states that the EKG appears to be atrial tachycardia with a possible first degree block. No anticoagulation recommended at this time or beta hamzah. Recommend a longer Holter monitor of 30 days be placed to further assess patients arrhythmia prior to discharge. Patient denies any chest pain, shortness of breath or palpitations at this time. Review of Systems Review of Systems: All systems reviewed & are unremarkable except as noted in HPI and below Exam Narrative: AF HR 83 RR 18 Spo2 98 BP 131/73 General: female in no acute respiratory distress who is nontoxic appearing, sitting up in bed. HEENT: Normocephalic. Atraumatic. Extraocular movement intact. Sclera clear and anicteric. No facial asymmetry. Chest: Lungs are clear to auscultation bilaterally. No wheezes or crackles. CV: Heart was regular rate and rhythm. Abd: Abdomen was soft. Nontender. Nondistended. Positive bowel sounds. Ext: No clubbing, cyanosis, or edema. DP pulses bilaterally. Neuro: Patient is alert. Speech is clear. Objective Data Vital Signs Vital Signs: Vital Signs - 24 hr 11/15/24 12:00 11/15/24 13:25 11/15/24 16:00 Temperature 97.6 F Pulse Rate 73 67 66 Respiratory Rate 18 Blood Pressure 125/67 Pulse Oximetry 98 Oxygen Delivery 11/15/24 20:00 11/15/24 20:00 11/15/24 22:00 Temperature 97.1 F L Pulse Rate 77 69 Respiratory Rate 18 Blood Pressure 141/72 H Pulse Oximetry 98 Oxygen Delivery Room Air 11/15/24 22:36 11/16/24 00:00 11/16/24 04:00 Temperature Pulse Rate 67 93 Respiratory Rate Blood Pressure Pulse Oximetry Oxygen Delivery Room Air 11/16/24 06:00 Temperature 97.3 F L Pulse Rate 75 Respiratory Rate 18 Blood Pressure 144/82 H Pulse Oximetry 98 Oxygen Delivery Intake/Output Intake/Output: Intake & Output 11/13/24 11/14/24 11/15/24 11/16/24 23:59 23:59 23:59 23:59 Intake Total 1999 3640 3530 Output Total 1999 3400 2100 Balance 1999 1640 130 -2100 Meds/Results Medications: Active Medications Generic Name Dose Route Start Last Admin Trade Name Freq PRN Reason Stop Dose Admin Acetaminophen 650 mg 11/13/24 18:38 Acetaminophen 325 Mg Tablet PO Q4H PRN Mild Pain (1-3) or Fever Hydrocodone Bitart/Acetaminophen 1 tab 11/13/24 17:45 Hydrocodone/Acetaminophen (*Crx) 5-325 Mg Tablet PO Q4H PRN Pain Rated 4-6 Albuterol 1 puff 11/13/24 19:09 Albuterol Sulfate (*Sp) Aerosol 1 Puff INHALATION Q4HRT PRN Shortness Of Breath Or Wheezing Aspirin 81 mg 11/14/24 09:00 11/15/24 08:04 Aspirin 81 Mg Enteric Tablet PO 81 mg DAILY JEFF Administration Atorvastatin Calcium 20 mg 11/14/24 09:00 11/15/24 08:04 Atorvastatin 20 Mg Tablet PO 20 mg DAILY JEFF Administration Calcium Carbonate 200 mg 11/14/24 12:10 11/14/24 13:47 Calcium Carbonate (Tums) 500 Mg (200 Mg Elemental) PO 200 mg Q6H PRN Administration Indigestion Dextrose 12.5 gm 11/13/24 18:38 Dextrose 50% 25 Gm/50 Ml Syringe IV PUSH PRN PRN Hypoglycemia Protocol Docusate Sodium 100 mg 11/13/24 18:38 Docusate Sodium 100 Mg Capsule PO BID PRN Constipation Enoxaparin Sodium 40 mg 11/14/24 09:00 11/15/24 08:04 Enoxaparin 40 Mg/0.4 Ml Syringe SUB-Q 40 mg DAILY JEFF Administration Famotidine 20 mg 11/14/24 21:00 11/15/24 20:01 Famotidine 20 Mg Tablet PO 20 mg Q12HR JEFF Administration Fluoxetine HCl 20 mg 11/14/24 09:00 11/15/24 08:03 Fluoxetine Hcl 20 Mg Capsule PO 20 mg DAILY JEFF Administration Glucagon 1 mg 11/13/24 18:38 Glucagon For Inj 1 Mg Vial IM PRN PRN Hypoglycemia Protocol Glucose 15 gm 11/13/24 18:38 Glucose Oral Gel 15 Gm Of Glucse In 37.5 Gm Tube PO PRN PRN Hypoglycemia Protocol Dextrose 1,000 mls @ 100 mls/hr 11/13/24 18:38 Dextrose 5% 1,000 Ml IVPB PRN PRN Hypoglycemia Protocol Insulin Aspart 2 - 5 units 11/14/24 08:00 11/15/24 18:08 Insulin Aspart (*Bkc) 100 Units/Ml SUB-Q Not Given [facility] Protocol Insulin Aspart 1 - 2 units 11/13/24 21:00 11/15/24 20:10 Insulin Aspart (*Bkc) 100 Units/Ml SUB-Q Not Given HS [facility] Protocol Latanoprost 1 drop 11/13/24 21:00 11/15/24 20:03 Latanoprost 0.005% Op Soln 2.5 Ml Btl LEFT EYE 1 drop HS JEFF Administration Levothyroxine Sodium 125 mcg 11/14/24 06:30 11/16/24 05:51 Levothyroxine Sodium 125 Mcg Tablet BY MOUTH 125 mcg DAILY@0630 JEFF Administration Losartan Potassium 50 mg 11/14/24 09:00 11/15/24 08:04 Losartan Potassium 50 Mg Tablet PO 50 mg DAILY JEFF Administration Miscellaneous Information 0 each 11/13/24 00:01 11/14/24 09:34 Kamila Send To Pharmacy For Verification When Brought In XX 12/13/24 00:00 Not Given CLARIFY JEFF Montelukast Sodium 10 mg 11/14/24 09:00 11/15/24 08:04 Montelukast Sodium 10 Mg Tablet PO 10 mg DAILY JEFF Administration Morphine Sulfate 2 mg 11/13/24 17:45 Morphine Sulfate (*Crx) 2 Mg/Ml Inj IV PUSH Q2H PRN Pain Rated 7-10 Multivitamins Therapeutic 1 tablet 11/14/24 09:00 11/15/24 08:03 Multivitamins Therapeutic Tab (*Bkc) PO 1 tablet DAILY JEFF Administration Home Med - 1 drop 11/14/24 21:00 11/15/24 20:03 Brimonidine-Timolol LEFT EYE 12/14/24 20:59 1 drop [Kamila] 0.2-0.5 % Q12HR JEFF Administration Drops Ondansetron HCl 4 mg 11/13/24 17:45 Ondansetron Inj 4 Mg/2 Ml Vial IV PUSH Q4H PRN Nausea Phenol 1 spray 11/13/24 23:37 Phenol/Sod Pheno [place] (*Bkc) MUCOUS MEM PRN PRN Sore Throat Radiology Results: ITS Impressions Abdomen/Pelvis CT 11/13/24 16:27 IMPRESSION: 1. No acute abdominal abnormality. Labs Labs: Laboratory Results - last 24 hr 11/15/24 11/15/24 11/15/24 04:15 04:19 11:51 WBC 5.7 RBC 4.03 L Hgb 12.7 Hct 38.3 MCV 95.0 MCH 31.5 MCHC 33.2 RDW 15.1 H Plt Count 144 L MPV 9.9 % Immature Plt Fraction Sodium 136 L Potassium 4.6 Chloride 111 H Carbon Dioxide 22 Anion Gap 3 L BUN 31 H Creatinine 1.72 H Estim Creat Clear Calc 31 Estimated GFR 29 L Glucose 85 POC Capillary Glucose 94 Calcium 7.9 L Total Bilirubin 1.0 AST 425 H ALT 224 H Alkaline Phosphatase 76 Total Protein 5.3 L Albumin 2.7 L Hepatitis A IgM Ab Negative Hep Bs Antigen Negative Hep B Core IgM Ab Negative Hepatitis C Ab Screen Negative 11/15/24 11/15/24 11/16/24 16:51 20:08 04:25 WBC 5.0 RBC 4.08 L Hgb 13.0 Hct 38.8 MCV 95.1 MCH 31.9 MCHC 33.5 RDW 14.7 H Plt Count 131 L MPV 9.6 % Immature Plt Fraction 1.3 Sodium 138 Potassium 4.5 Chloride 109 H Carbon Dioxide 25 Anion Gap 4 BUN 21 H D Creatinine 1.47 H Estim Creat Clear Calc 37 Estimated GFR 35 L Glucose 91 POC Capillary Glucose 91 96 Calcium 8.4 Total Bilirubin 1.2 AST 335 H ALT 252 H Alkaline Phosphatase 76 Total Protein 5.6 L Albumin 3.0 L Hepatitis A IgM Ab Hep Bs Antigen Hep B Core IgM Ab Hepatitis C Ab Screen Quality VTE Prophylaxis VTE prophylaxis: mechanical ordered and pharmacologic ordered
[2024-11-16] MEDS: ASPIRIN 81 MG ENTERIC TABLET PO (08:47)
[2024-11-16] MEDS: MULTIVITAMINS THERAPEUTIC TAB (*BKC) 1 TABLET PO (08:47)
[2024-11-16] MEDS: LOSARTAN POTASSIUM 50 MG TABLET PO (08:47)
[2024-11-16] MEDS: FAMOTIDINE 20 MG TABLET PO ×2 (08:47→20:43)
[2024-11-16] MEDS: MONTELUKAST SODIUM 10 MG TABLET PO (08:47)
[2024-11-16] MEDS: BRIMONIDINE TIMOLOL 1 EACH LEFT EYE ×2 (08:47→20:43)
[2024-11-16] MEDS: ATORVASTATIN 20 MG TABLET PO (08:47)
[2024-11-16] MEDS: ENOXAPARIN 40 MG/0.4 ML SYRINGE SUB-Q (08:48)
[2024-11-16 09:00] LABS: Magnesium 1.7 mg/dL (1.6-2.3)
[2024-11-16 10:10] LABS: Thyroid Stimulating Hormone Reflex 0.034 uIU/mL (0.465-4.68)
[2024-11-16 14:47] LABS: Free T4 Free Thyroxine Reflex 1.55 ng/dL (0.78-2.19)
[2024-11-16 17:02] LABS: Free T3 2.65 pg/mL (2.45-5.93)
[2024-11-16 17:11] LABS: Total Triiodothyronine (T3) 0.53 NG/ML (0.82-1.58)
--- NOTE | 2024-11-16 17:47 | WPDGIPROGNO ---
Progress Note: A&P Assessment and Plan (1) Elevated LFTs: Code(s): R79.89 - Other specified abnormal findings of blood chemistry Status: Acute Assessment and Plan: The patient's transaminase levels have stabilized, with the ALT decreasing from 425 to 335 and AST increasing from 224 to 252. Her alkaline phosphatase and bilirubin levels remain normal. The most likely cause for this moderate, acute increase in transaminases is her cardiovascular dynamics and arrhythmia, which should slowly resolve with her improving cardiac status. We will continue to monitor her liver function tests. At this time, there is no indication for invasive procedures. To resolve the discrepancy between her recent CT scan and the ultrasound from 10/23/2024, a repeat ultrasound will be performed during this hospitalization. Subjective Date/time seen: 11/16/24 17:47 Objective Data Vital Signs Vital Signs: Vital Signs - 24 hr 11/15/24 20:00 11/15/24 20:00 11/15/24 22:00 Temperature 97.1 F L Pulse Rate 77 69 Respiratory Rate 18 Blood Pressure 141/72 H Pulse Oximetry 98 Oxygen Delivery Room Air 11/15/24 22:36 11/16/24 00:00 11/16/24 04:00 Temperature Pulse Rate 67 93 Respiratory Rate Blood Pressure Pulse Oximetry Oxygen Delivery Room Air 11/16/24 06:00 11/16/24 08:00 11/16/24 08:50 Temperature 97.3 F L Pulse Rate 75 114 H Respiratory Rate 18 Blood Pressure 144/82 H Pulse Oximetry 98 Oxygen Delivery Room Air 11/16/24 12:00 11/16/24 14:00 Temperature 98.5 F Pulse Rate 84 83 Respiratory Rate 18 Blood Pressure 131/73 Pulse Oximetry 98 Oxygen Delivery Intake/Output Intake/Output: Intake & Output 11/13/24 11/14/24 11/15/24 11/16/24 23:59 23:59 23:59 23:59 Intake Total 1999 3640 3530 480 Output Total 1999 3400 2100 Balance 1999 1640 130 -1620 Meds/Results Medications: Active Medications Generic Name Dose Route Start Last Admin Trade Name Freq PRN Reason Stop Dose Admin Acetaminophen 650 mg 11/13/24 18:38 Acetaminophen 325 Mg Tablet PO Q4H PRN Mild Pain (1-3) or Fever Hydrocodone Bitart/Acetaminophen 1 tab 11/13/24 17:45 Hydrocodone/Acetaminophen (*Crx) 5-325 Mg Tablet PO Q4H PRN Pain Rated 4-6 Albuterol 1 puff 11/13/24 19:09 Albuterol Sulfate (*Sp) Aerosol 1 Puff INHALATION Q4HRT PRN Shortness Of Breath Or Wheezing Aspirin 81 mg 11/14/24 09:00 11/16/24 08:47 Aspirin 81 Mg Enteric Tablet PO 81 mg DAILY JEFF Administration Atorvastatin Calcium 20 mg 11/14/24 09:00 11/16/24 08:47 Atorvastatin 20 Mg Tablet PO 20 mg DAILY JEFF Administration Calcium Carbonate 200 mg 11/14/24 12:10 11/14/24 13:47 Calcium Carbonate (Tums) 500 Mg (200 Mg Elemental) PO 200 mg Q6H PRN Administration Indigestion Dextrose 12.5 gm 11/13/24 18:38 Dextrose 50% 25 Gm/50 Ml Syringe IV PUSH PRN PRN Hypoglycemia Protocol Docusate Sodium 100 mg 11/13/24 18:38 Docusate Sodium 100 Mg Capsule PO BID PRN Constipation Enoxaparin Sodium 40 mg 11/14/24 09:00 11/16/24 08:48 Enoxaparin 40 Mg/0.4 Ml Syringe SUB-Q 40 mg DAILY JEFF Administration Famotidine 20 mg 11/14/24 21:00 11/16/24 08:47 Famotidine 20 Mg Tablet PO 20 mg Q12HR JEFF Administration Fluoxetine HCl 20 mg 11/14/24 09:00 11/16/24 08:47 Fluoxetine Hcl 20 Mg Capsule PO 20 mg DAILY JEFF Administration Glucagon 1 mg 11/13/24 18:38 Glucagon For Inj 1 Mg Vial IM PRN PRN Hypoglycemia Protocol Glucose 15 gm 11/13/24 18:38 Glucose Oral Gel 15 Gm Of Glucse In 37.5 Gm Tube PO PRN PRN Hypoglycemia Protocol Dextrose 1,000 mls @ 100 mls/hr 11/13/24 18:38 Dextrose 5% 1,000 Ml IVPB PRN PRN Hypoglycemia Protocol Insulin Aspart 2 - 5 units 11/14/24 08:00 11/16/24 12:11 Insulin Aspart (*Bkc) 100 Units/Ml SUB-Q Not Given TIDWM [facility] Protocol Insulin Aspart 1 - 2 units 11/13/24 21:00 11/15/24 20:10 Insulin Aspart (*Bkc) 100 Units/Ml SUB-Q Not Given HS [facility] Protocol Latanoprost 1 drop 11/13/24 21:00 11/15/24 20:03 Latanoprost 0.005% Op Soln 2.5 Ml Btl LEFT EYE 1 drop HS JEFF Administration Levothyroxine Sodium 125 mcg 11/14/24 06:30 11/16/24 05:51 Levothyroxine Sodium 125 Mcg Tablet BY MOUTH 125 mcg DAILY@0630 JEFF Administration Losartan Potassium 50 mg 11/14/24 09:00 11/16/24 08:47 Losartan Potassium 50 Mg Tablet PO 50 mg DAILY JEFF Administration Miscellaneous Information 0 each 11/13/24 00:01 11/14/24 09:34 Combigan Send To Pharmacy For Verification When Brought In XX 12/13/24 00:00 Not Given CLARIFY JEFF Montelukast Sodium 10 mg 11/14/24 09:00 11/16/24 08:47 Montelukast Sodium 10 Mg Tablet PO 10 mg DAILY JEFF Administration Morphine Sulfate 2 mg 11/13/24 17:45 Morphine Sulfate (*Crx) 2 Mg/Ml Inj IV PUSH Q2H PRN Pain Rated 7-10 Multivitamins Therapeutic 1 tablet 11/14/24 09:00 11/16/24 08:47 Multivitamins Therapeutic Tab (*Bkc) PO 1 tablet DAILY JEFF Administration Home Med - 1 drop 11/14/24 21:00 11/16/24 08:47 Brimonidine-Timolol LEFT EYE 12/14/24 20:59 1 drop [Combigan] 0.2-0.5 % Q12HR JEFF Administration Drops Ondansetron HCl 4 mg 11/13/24 17:45 Ondansetron Inj 4 Mg/2 Ml Vial IV PUSH Q4H PRN Nausea Perflutren Lipid Microsphere 0 ml 11/16/24 08:30 Perflutren Lipid Microspheres 1.5 Ml Vial Diluted To 10 Ml Total Volume IV PUSH 11/19/24 08:30 ONCE PRN adequate visualization Protocol Phenol 1 spray 11/13/24 23:37 Phenol/Sod Pheno [place] (*Bkc) MUCOUS MEM PRN PRN Sore Throat Radiology Results: ITS Impressions Abdomen/Pelvis CT 11/13/24 16:27 IMPRESSION: 1. No acute abdominal abnormality. Labs Labs: Laboratory Results - last 24 hr 11/15/24 11/16/24 11/16/24 20:08 04:25 08:28 WBC 5.0 RBC 4.08 L Hgb 13.0 Hct 38.8 MCV 95.1 MCH 31.9 MCHC 33.5 RDW 14.7 H Plt Count 131 L MPV 9.6 % Immature Plt Fraction 1.3 Sodium 138 Potassium 4.5 Chloride 109 H Carbon Dioxide 25 Anion Gap 4 BUN 21 H D Creatinine 1.47 H Estim Creat Clear Calc 37 Estimated GFR 35 L Glucose 91 POC Capillary Glucose 96 124 H Calcium 8.4 Magnesium 1.7 Total Bilirubin 1.2 AST 335 H ALT 252 H Alkaline Phosphatase 76 Total Protein 5.6 L Albumin 3.0 L TSH (Reflex) Free T4 Free T3 pg/mL Total T3 11/16/24 11/16/24 11/16/24 09:06 11:19 15:05 WBC RBC Hgb Hct MCV MCH MCHC RDW Plt Count MPV % Immature Plt Fraction Sodium Potassium Chloride Carbon Dioxide Anion Gap BUN Creatinine Estim Creat Clear Calc Estimated GFR Glucose POC Capillary Glucose 96 Calcium Magnesium Total Bilirubin AST ALT Alkaline Phosphatase Total Protein Albumin TSH (Reflex) 0.034 L Free T4 1.55 Free T3 pg/mL 2.65 Total T3 0.53 L 11/16/24 11/16/24 15:14 16:40 WBC RBC Hgb Hct MCV MCH MCHC RDW Plt Count MPV % Immature Plt Fraction Sodium Potassium Chloride Carbon Dioxide Anion Gap BUN Creatinine Estim Creat Clear Calc Estimated GFR Glucose POC Capillary Glucose 90 Calcium Magnesium Total Bilirubin AST ALT Alkaline Phosphatase Total Protein Albumin TSH (Reflex) Free T4 Free T3 pg/mL Cancelled Total T3
[2024-11-16] MEDS: LATANOPROST 0.005% OP SOLN 2.5 ML BTL 1 DROP LEFT EYE (20:43)
[2024-11-17 00:04] VITALS: PULSE 98
[2024-11-17 04:00] VITALS: PULSE 71
[2024-11-17 05:04] LABS: Hematocrit 38.1 % (37.0-47.0); Hemoglobin 12.7 g/dL (12.0-15.0); Immature Platelet Fraction Pct 2.0 % (0.9-11.2); Mean Corpuscular HGB Conc 33.3 g/dl (32-36); Mean Corpuscular Hemoglobin 31.5 pg (26-34); Mean Corpuscular Volume 94.5 fl (80-100); Platelet Count Result 117 k/mm3 (150-375); Red Blood Count 4.03 M/mm3 (4.2-5.4); White Blood Count 4.7 K/mm3 (4.5-10.0)
[2024-11-17 05:27] LABS: Alanine Aminotransferase 199 U/L (6-35); Albumin Level 2.9 g/dL (3.5-5.1); Alkaline Phosphatase 70 U/L (38-126); Anion Gap 2 mmol/L (4-12); Aspartate Amino Transferase 187 U/L (14-36); Bilirubin,Total 1.2 mg/dL (0.2-1.3); Blood Urea Nitrogen 14 mg/dL (7-17); Calcium 8.6 mg/dL (8.4-10.2); Carbon Dioxide 28 mmol/L (22-30); Chloride 109 mmol/L (98-107); Estimated CRCL calculation 38 ml/min; Estimated Glomerular Filt Rate 37; Glucose 79 mg/dL (65-110); Potassium 4.6 mmol/L (3.4-5.0); Sodium 139 mmol/L (137-145); Total Protein 5.6 g/dL (6.3-8.2)
[2024-11-17 06:00] VITALS: BP 148/75; PULSE 68; RESP 18; TEMP 36.7; O2SAT 99
[2024-11-17] MEDS: LEVOTHYROXINE SODIUM 125 MCG TABLET BY MOUTH (06:11)
--- NOTE | 2024-11-17 07:55 | P.PNIM_ITS ---
Progress Note: A&P Assessment and Plan (1) Atrial tachycardia: Code(s): I47.19 - Other supraventricular tachycardia Status: Acute Assessment and Plan: - Likely cause: dehydration - TSH ordered to rule out metabolic cause for tachyarrhythmia TSH low, T4 and T3 pending Possible underlying hyperthyroid causing palpitations - EKG: aflutter with RVR HR 125 on admission - Echo LVEF 60-65% with diastolic dysfunction - Telemetry reviewed and patient remains in sinus rhythm Discussed EKG finding of atrial flutter/tachycardia with RVR with cardiology G[facility] BEATER who states that the EKG appears to be atrial tachycardia with a possible first degree block. No anticoagulation recommended at this time or beta hamzah. Recommend a longer Holter monitor of 30 days be placed to further assess patients arrhythmia prior to discharge 48 hr holter monitor 11/01 Predominant rhythm is sinus rhythm. HR range 56-154 bpm; average HR 78 bpm. 172 premature supraventricular complexes and 16 supraventricular couplets. 50 runs of atrial tachycardia, fastest at 154 bpm and longest lasting 359 beats. 28 premature ventricular complexes. No ventricular tachycardia. No sinoatrial or atrioventricular blocks. No significant pauses greater than 2 seconds. Holter monitor of 30 days be placed to further assess patients arrhythmia prior to discharge will need a f/u with card as an outpt (2) Elevated LFTs: Code(s): R79.89 - Other specified abnormal findings of blood chemistry Status: Acute Assessment and Plan: LFTs elevated on admission tot bili 1.7, AST 101, ALT 63, alk phos WNL Has been uptrending since early 10/2024. Previously WNL in 03/2024 Lipase WNL Possibly medication induced however no recent medication changes, currently on atorvastatin, prozac, synthroid, and losartan Liver enzymes remain elevated however stable, currently AST 335, and ALT 252. Alk phos and tot bili WNL. CT abdomen/pelvis showed fatty infiltration of the liver Prior US abdomen 10/23: Echogenic appearing pancreas, of doubtful clinical significance unless pancreatic labs are abnormal.Cirrhosis.Status post cholecystectomy. No common bile duct dilation.Ascites. Hepatitis panel negative GI consulted, appreciate recommendations Patient had uncontrolled atrial fibrillation. Abrupt increase in her transaminase levels may be due to a degree of hepatic ischemia caused by these factors. Since her arrhythmia is controlled and her fluid volume has been restored, we expect her transaminase levels to decrease. 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 (3) Vomiting: Code(s): R11.10 - Vomiting, unspecified Status: Acute Assessment and Plan: CT abdomen/pelvis: No acute abdominal abnormality Recently started on Ozempic 2 months ago. Dose recently increased, last taken on 11/12. IV hydration Zofran Nausea/vomiting has resolved. Likely related to Ozempic gastroparesis. Patient to remain on a low fat low fiber diet (4) Acute kidney injury superimposed on CKD: Code(s): N17.9 - Acute kidney failure, unspecified; N18.9 - Chronic kidney disease, unspecified Status: Acute Assessment and Plan: BUN/Cr 30/2.08 with GFR 23 on admission, baseline seems to run ~ 1.3 - 1.7mg/dl in the last few years. Follows with nephrology Dr. Krishnamurthy, last seen 10/05/24 Likely secondary to dehydration related to patients nausea/vomiting BUN/Cr returned to baseline with IV fluids, IV fluids discontinued Monitor I/O Renally dose medications Avoid nephrotoxic medications Resolved. (5) DM type 2 (diabetes mellitus, type 2): Qualifiers: Diabetes mellitus halfway insulin use: without termite control representative use Diabetes mellitus complication status: with kidney complications Diabetes mellitus complication detail: with chronic kidney disease Chronic kidney disease stage: unspecified stage Qualified Code(s): E11.22 - Type 2 diabetes mellitus with diabetic chronic kidney disease Code(s): E11.9 - Type 2 diabetes mellitus without complications Status: Acute Assessment and Plan: - hypoglycemia protocol - POC blood glucose ACHS - home medication - ozempic - correct regimen ordered - low dose TIDWM and HS - A1C 4.8 Glucose well controlled. Continue to monitor. (6) Hypothyroidism (acquired): Code(s): E03.9 - Hypothyroidism, unspecified Status: Acute Assessment and Plan: Continue levothyroxine 125 mcg daily (7) Hyperlipidemia: Qualifiers: Hyperlipidemia type: mixed hyperlipidemia Qualified Code(s): E78.2 - Mixed hyperlipidemia Code(s): E78.5 - Hyperlipidemia, unspecified Status: Acute Assessment and Plan: Continue atorvastatin 20 mg daily (8) Coronary artery disease: Qualifiers: Coronary Disease-Associated Artery/Lesion type: unspecified vessel or lesion type [place] vs. transplanted heart: [place] heart Associated angina: unspecified whether angina present Qualified Code(s): I25.10 - Atherosclerotic heart disease of [place] coronary artery without angina pectoris Code(s): I25.10 - Atherosclerotic heart disease of [place] coronary artery without angina pectoris Status: Acute Assessment and Plan: Chronic Continue aspirin, Lipitor, continue Cozaar (9) Depression: Qualifiers: Depression Type: unspecified Qualified Code(s): F32.9 - Major depressive disorder, single episode, unspecified Code(s): F32.9 - Major depressive disorder, single episode, unspecified Status: Acute Assessment and Plan: Continue Prozac 20 mg daily Time Spent With Patient Time with patient: 25 - 35 minutes Subjective Date/time seen: 11/17/24 07:55 Interval history: 74 year old female with past medical history of CAD, DM, CKD, diastolic dysfunction, vertigo, SCT, HTN, HLD, and hypothyroidism presents to the hospital for nausea and vomiting. Assuming care. Patient is pleasant, continues to endorse pain with swallowing that she related to the prior vomiting. She denies any difficulty with swallowing or feeling as though food is getting stuck. Patient denies any nausea/vomiting and diarrhea. Denies chest pain, sob. She is tolerating her diet well. GI is following, monitoring LFTs, ultrasound is to be repeated. No anticoagulation recommended at this time or beta hamzah. Recommend a longer Holter monitor of 30 days be placed to further assess patients arrhythmia prior to discharge. Review of Systems Review of Systems: 12 systems were reviewed and are negativ e except for as per HPI. All systems reviewed & are unremarkable except as noted in HPI and below Exam Narrative: General: female in no acute respiratory distress who is nontoxic appearing, sitting up in bed. HEENT: Normocephalic. Atraumatic. Extraocular movement intact. Sclera clear and anicteric. No facial asymmetry. Chest: Lungs are clear to auscultation bilaterally. No wheezes or crackles. CV: Heart was regular rate and rhythm. Abd: Abdomen was soft. Nontender. Nondistended. Positive bowel sounds. Ext: No clubbing, cyanosis, or edema. DP pulses bilaterally. Neuro: Patient is alert. Speech is clear. Objective Data Vital Signs Vital Signs: Vital Signs - 24 hr 11/16/24 08:00 11/16/24 08:50 11/16/24 12:00 Temperature Pulse Rate 114 H 84 Respiratory Rate Blood Pressure Pulse Oximetry Oxygen Delivery Room Air Fraction of Inspired Oxygen 11/16/24 14:00 11/16/24 16:00 11/16/24 20:00 Temperature 98.5 F Pulse Rate 83 66 70 Respiratory Rate 18 Blood Pressure 131/73 Pulse Oximetry 98 Oxygen Delivery Fraction of Inspired Oxygen 11/16/24 20:40 11/16/24 22:00 11/17/24 00:04 Temperature 98.4 F Pulse Rate 70 70 98 Respiratory Rate 18 18 Blood Pressure 159/86 H Pulse Oximetry 100 100 Oxygen Delivery Room Air Fraction of Inspired Oxygen 21 11/17/24 04:00 11/17/24 06:00 Temperature 98.0 F Pulse Rate 71 68 Respiratory Rate 18 Blood Pressure 148/75 H Pulse Oximetry 99 Oxygen Delivery Fraction of Inspired Oxygen Intake/Output Intake/Output: Intake & Output 11/14/24 11/15/24 11/16/24 11/17/24 23:59 23:59 23:59 23:59 Intake Total 3640 3530 2470 Output Total 1999 3400 2100 Balance 1640 130 370 Meds/Results Medications: Active Medications Generic Name Dose Route Start Last Admin Trade Name Freq PRN Reason Stop Dose Admin Acetaminophen 650 mg 11/13/24 18:38 Acetaminophen 325 Mg Tablet PO Q4H PRN Mild Pain (1-3) or Fever Hydrocodone Bitart/Acetaminophen 1 tab 11/13/24 17:45 Hydrocodone/Acetaminophen (*Crx) 5-325 Mg Tablet PO Q4H PRN Pain Rated 4-6 Albuterol 1 puff 11/13/24 19:09 Albuterol Sulfate (*Sp) Aerosol 1 Puff INHALATION Q4HRT PRN Shortness Of Breath Or Wheezing Aspirin 81 mg 11/14/24 09:00 11/16/24 08:47 Aspirin 81 Mg Enteric Tablet PO 81 mg DAILY JEFF Administration Atorvastatin Calcium 20 mg 11/14/24 09:00 11/16/24 08:47 Atorvastatin 20 Mg Tablet PO 20 mg DAILY JEFF Administration Calcium Carbonate 200 mg 11/14/24 12:10 11/14/24 13:47 Calcium Carbonate (Tums) 500 Mg (200 Mg Elemental) PO 200 mg Q6H PRN Administration Indigestion Dextrose 12.5 gm 11/13/24 18:38 Dextrose 50% 25 Gm/50 Ml Syringe IV PUSH PRN PRN Hypoglycemia Protocol Docusate Sodium 100 mg 11/13/24 18:38 Docusate Sodium 100 Mg Capsule PO BID PRN Constipation Enoxaparin Sodium 40 mg 11/14/24 09:00 11/16/24 08:48 Enoxaparin 40 Mg/0.4 Ml Syringe SUB-Q 40 mg DAILY JEFF Administration Famotidine 20 mg 11/14/24 21:00 11/16/24 20:43 Famotidine 20 Mg Tablet PO 20 mg Q12HR JEFF Administration Fluoxetine HCl 20 mg 11/14/24 09:00 11/16/24 08:47 Fluoxetine Hcl 20 Mg Capsule PO 20 mg DAILY JEFF Administration Glucagon 1 mg 11/13/24 18:38 Glucagon For Inj 1 Mg Vial IM PRN PRN Hypoglycemia Protocol Glucose 15 gm 11/13/24 18:38 Glucose Oral Gel 15 Gm Of Glucse In 37.5 Gm Tube PO PRN PRN Hypoglycemia Protocol Dextrose 1,000 mls @ 100 mls/hr 11/13/24 18:38 Dextrose 5% 1,000 Ml IVPB PRN PRN Hypoglycemia Protocol Insulin Aspart 2 - 5 units 11/14/24 08:00 11/16/24 19:54 Insulin Aspart (*Bkc) 100 Units/Ml SUB-Q Not Given TIDWM JEFF Protocol Insulin Aspart 1 - 2 units 11/13/24 21:00 11/17/24 04:30 Insulin Aspart (*Bkc) 100 Units/Ml SUB-Q Not Given HS [facility] Protocol Latanoprost 1 drop 11/13/24 21:00 11/16/24 20:43 Latanoprost 0.005% Op Soln 2.5 Ml Btl LEFT EYE 1 drop HS JEFF Administration Levothyroxine Sodium 125 mcg 11/14/24 06:30 11/17/24 06:11 Levothyroxine Sodium 125 Mcg Tablet BY MOUTH 125 mcg DAILY@0630 JEFF Administration Losartan Potassium 50 mg 11/14/24 09:00 11/16/24 08:47 Losartan Potassium 50 Mg Tablet PO 50 mg DAILY JEFF Administration Miscellaneous Information 0 each 11/13/24 00:01 11/14/24 09:34 Kamila Send To Pharmacy For Verification When Brought In XX 12/13/24 00:00 Not Given CLARIFY JEFF Montelukast Sodium 10 mg 11/14/24 09:00 11/16/24 08:47 Montelukast Sodium 10 Mg Tablet PO 10 mg DAILY JEFF Administration Morphine Sulfate 2 mg 11/13/24 17:45 Morphine Sulfate (*Crx) 2 Mg/Ml Inj IV PUSH Q2H PRN Pain Rated 7-10 Multivitamins Therapeutic 1 tablet 11/14/24 09:00 11/16/24 08:47 Multivitamins Therapeutic Tab (*Bkc) PO 1 tablet DAILY JEFF Administration Home Med - 1 drop 11/14/24 21:00 11/16/24 20:43 Brimonidine-Timolol LEFT EYE 12/14/24 20:59 1 drop [Combigan] 0.2-0.5 % Q12HR JEFF Administration Drops Ondansetron HCl 4 mg 11/13/24 17:45 Ondansetron Inj 4 Mg/2 Ml Vial IV PUSH Q4H PRN Nausea Perflutren Lipid Microsphere 0 ml 11/16/24 08:30 Perflutren Lipid Microspheres 1.5 Ml Vial Diluted To 10 Ml Total Volume IV PUSH 11/19/24 08:30 ONCE PRN adequate visualization Protocol Phenol 1 spray 11/13/24 23:37 Phenol/Sod Pheno [place] (*Bkc) MUCOUS MEM PRN PRN Sore Throat Radiology Results: ITS Impressions Abdomen/Pelvis CT 11/13/24 16:27 IMPRESSION: 1. No acute abdominal abnormality. Labs Labs: Laboratory Results - last 24 hr 11/16/24 11/16/24 11/16/24 04:25 08:28 09:06 WBC RBC Hgb Hct MCV MCH MCHC RDW Plt Count MPV % Immature Plt Fraction Sodium Potassium Chloride Carbon Dioxide Anion Gap BUN Creatinine Estim Creat Clear Calc Estimated GFR Glucose POC Capillary Glucose 124 H Calcium Magnesium 1.7 Total Bilirubin AST ALT Alkaline Phosphatase Total Protein Albumin TSH (Reflex) 0.034 L Free T4 1.55 Free T3 pg/mL Total T3 0.53 L 11/16/24 11/16/24 11/16/24 11:19 15:05 15:14 WBC RBC Hgb Hct MCV MCH MCHC RDW Plt Count MPV % Immature Plt Fraction Sodium Potassium Chloride Carbon Dioxide Anion Gap BUN Creatinine Estim Creat Clear Calc Estimated GFR Glucose POC Capillary Glucose 96 Calcium Magnesium Total Bilirubin AST ALT Alkaline Phosphatase Total Protein Albumin TSH (Reflex) Free T4 Free T3 pg/mL 2.65 Cancelled Total T3 11/16/24 11/16/24 11/17/24 16:40 22:20 04:14 WBC 4.7 RBC 4.03 L Hgb 12.7 Hct 38.1 MCV 94.5 MCH 31.5 MCHC 33.3 RDW 14.5 Plt Count 117 L MPV 9.5 % Immature Plt Fraction 2.0 Sodium 139 Potassium 4.6 Chloride 109 H Carbon Dioxide 28 Anion Gap 2 L BUN 14 D Creatinine 1.40 H Estim Creat Clear Calc 38 Estimated GFR 37 L Glucose 79 POC Capillary Glucose 90 98 Calcium 8.6 Magnesium Total Bilirubin 1.2 AST 187 H ALT 199 H Alkaline Phosphatase 70 Total Protein 5.6 L Albumin 2.9 L TSH (Reflex) Free T4 Free T3 pg/mL Total T3 11/17/24 07:46 WBC RBC Hgb Hct MCV MCH MCHC RDW Plt Count MPV % Immature Plt Fraction Sodium Potassium Chloride Carbon Dioxide Anion Gap BUN Creatinine Estim Creat Clear Calc Estimated GFR Glucose POC Capillary Glucose 79 Calcium Magnesium Total Bilirubin AST ALT Alkaline Phosphatase Total Protein Albumin TSH (Reflex) Free T4 Free T3 pg/mL Total T3 Quality VTE Prophylaxis VTE prophylaxis: mechanical ordered and pharmacologic ordered
[2024-11-17 08:00] VITALS: PULSE 69
[2024-11-17] MEDS: ATORVASTATIN 20 MG TABLET PO (09:49)
[2024-11-17] MEDS: MULTIVITAMINS THERAPEUTIC TAB (*BKC) 1 TABLET PO (09:49)
[2024-11-17] MEDS: MONTELUKAST SODIUM 10 MG TABLET PO (09:49)
[2024-11-17] MEDS: LOSARTAN POTASSIUM 50 MG TABLET PO (09:49)
[2024-11-17] MEDS: ASPIRIN 81 MG ENTERIC TABLET PO (09:49)
[2024-11-17] MEDS: FAMOTIDINE 20 MG TABLET PO (09:49)
[2024-11-17] MEDS: ENOXAPARIN 40 MG/0.4 ML SYRINGE SUB-Q (09:49)
[2024-11-17] MEDS: BRIMONIDINE TIMOLOL 1 EACH LEFT EYE (09:51)
--- NOTE | 2024-11-17 10:03 | P.PNGI_ITS ---
Progress Note: A&P Assessment and Plan (1) Elevated LFTs: Code(s): R79.89 - Other specified abnormal findings of blood chemistry Status: Acute Assessment and Plan: The patient's transaminase levels are much improved from the day before, supporting the hypothesis of liver hypoperfusion secondary to decompensated arrhythmia. Will sign off for now, please let us know if there is any changing her current status, however we anticipate the transaminases will continue to normalize. Subjective Date/time seen: 11/17/24 10:03 Objective Data Vital Signs Vital Signs: Vital Signs - 24 hr 11/16/24 12:00 11/16/24 14:00 11/16/24 16:00 Temperature 98.5 F Pulse Rate 84 83 66 Respiratory Rate 18 Blood Pressure 131/73 Pulse Oximetry 98 Oxygen Delivery Fraction of Inspired Oxygen 11/16/24 20:00 11/16/24 20:40 11/16/24 22:00 Temperature 98.4 F Pulse Rate 70 70 70 Respiratory Rate 18 18 Blood Pressure 159/86 H Pulse Oximetry 100 100 Oxygen Delivery Room Air Fraction of Inspired Oxygen 11/17/24 00:04 11/17/24 04:00 11/17/24 06:00 Temperature 98.0 F Pulse Rate 98 71 68 Respiratory Rate 18 Blood Pressure 148/75 H Pulse Oximetry 99 Oxygen Delivery Fraction of Inspired Oxygen Intake/Output Intake/Output: Intake & Output 11/14/24 11/15/24 11/16/24 11/17/24 23:59 23:59 23:59 23:59 Intake Total 3640 3530 2470 Output Total 1999 3400 2100 Balance 1640 130 370 Meds/Results Medications: Active Medications Generic Name Dose Route Start Last Admin Trade Name Freq PRN Reason Stop Dose Admin Acetaminophen 650 mg 11/13/24 18:38 Acetaminophen 325 Mg Tablet PO Q4H PRN Mild Pain (1-3) or Fever Hydrocodone Bitart/Acetaminophen 1 tab 11/13/24 17:45 Hydrocodone/Acetaminophen (*Crx) 5-325 Mg Tablet PO Q4H PRN Pain Rated 4-6 Albuterol 1 puff 11/13/24 19:09 Albuterol Sulfate (*Sp) Aerosol 1 Puff INHALATION Q4HRT PRN Shortness Of Breath Or Wheezing Aspirin 81 mg 11/14/24 09:00 11/17/24 09:49 Aspirin 81 Mg Enteric Tablet PO 81 mg DAILY JEFF Administration Atorvastatin Calcium 20 mg 11/14/24 09:00 11/17/24 09:49 Atorvastatin 20 Mg Tablet PO 20 mg DAILY JEFF Administration Calcium Carbonate 200 mg 11/14/24 12:10 11/14/24 13:47 Calcium Carbonate (Tums) 500 Mg (200 Mg Elemental) PO 200 mg Q6H PRN Administration Indigestion Dextrose 12.5 gm 11/13/24 18:38 Dextrose 50% 25 Gm/50 Ml Syringe IV PUSH PRN PRN Hypoglycemia Protocol Docusate Sodium 100 mg 11/13/24 18:38 Docusate Sodium 100 Mg Capsule PO BID PRN Constipation Enoxaparin Sodium 40 mg 11/14/24 09:00 11/17/24 09:49 Enoxaparin 40 Mg/0.4 Ml Syringe SUB-Q 40 mg DAILY JEFF Administration Famotidine 20 mg 11/14/24 21:00 11/17/24 09:49 Famotidine 20 Mg Tablet PO 20 mg Q12HR JEFF Administration Fluoxetine HCl 20 mg 11/14/24 09:00 11/17/24 09:49 Fluoxetine Hcl 20 Mg Capsule PO 20 mg DAILY JEFF Administration Glucagon 1 mg 11/13/24 18:38 Glucagon For Inj 1 Mg Vial IM PRN PRN Hypoglycemia Protocol Glucose 15 gm 11/13/24 18:38 Glucose Oral Gel 15 Gm Of Glucse In 37.5 Gm Tube PO PRN PRN Hypoglycemia Protocol Dextrose 1,000 mls @ 100 mls/hr 11/13/24 18:38 Dextrose 5% 1,000 Ml IVPB PRN PRN Hypoglycemia Protocol Insulin Aspart 2 - 5 units 11/14/24 08:00 11/17/24 09:48 Insulin Aspart (*Bkc) 100 Units/Ml SUB-Q Not Given TIDWM [facility] Protocol Insulin Aspart 1 - 2 units 11/13/24 21:00 11/17/24 04:30 Insulin Aspart (*Bkc) 100 Units/Ml SUB-Q Not Given HS [facility] Protocol Latanoprost 1 drop 11/13/24 21:00 11/16/24 20:43 Latanoprost 0.005% Op Soln 2.5 Ml Btl LEFT EYE 1 drop HS JEFF Administration Levothyroxine Sodium 125 mcg 11/14/24 06:30 11/17/24 06:11 Levothyroxine Sodium 125 Mcg Tablet BY MOUTH 125 mcg DAILY@0630 JEFF Administration Losartan Potassium 50 mg 11/14/24 09:00 11/17/24 09:49 Losartan Potassium 50 Mg Tablet PO 50 mg DAILY JEFF Administration Miscellaneous Information 0 each 11/13/24 00:01 11/14/24 09:34 [place] Send To Pharmacy For Verification When Brought In XX 12/13/24 00:00 Not Given CLARIFY JEFF Montelukast Sodium 10 mg 11/14/24 09:00 11/17/24 09:49 Montelukast Sodium 10 Mg Tablet PO 10 mg DAILY JEFF Administration Morphine Sulfate 2 mg 11/13/24 17:45 Morphine Sulfate (*Crx) 2 Mg/Ml Inj IV PUSH Q2H PRN Pain Rated 7-10 Multivitamins Therapeutic 1 tablet 11/14/24 09:00 11/17/24 09:49 Multivitamins Therapeutic Tab (*Bkc) PO 1 tablet DAILY JEFF Administration Home Med - 1 drop 11/14/24 21:00 11/17/24 09:51 Brimonidine-Timolol LEFT EYE 12/14/24 20:59 1 drop [Kamila] 0.2-0.5 % Q12HR JEFF Administration Drops Ondansetron HCl 4 mg 11/13/24 17:45 Ondansetron Inj 4 Mg/2 Ml Vial IV PUSH Q4H PRN Nausea Perflutren Lipid Microsphere 0 ml 11/16/24 08:30 Perflutren Lipid Microspheres 1.5 Ml Vial Diluted To 10 Ml Total Volume IV PUSH 11/19/24 08:30 ONCE PRN adequate visualization Protocol Phenol 1 spray 11/13/24 23:37 Phenol/Sod Pheno [place] (*Bkc) MUCOUS MEM PRN PRN Sore Throat Radiology Results: ITS Impressions Abdomen/Pelvis CT 11/13/24 16:27 IMPRESSION: 1. No acute abdominal abnormality. Labs Labs: Laboratory Results - last 24 hr 11/16/24 11/16/24 11/16/24 09:06 11:19 15:05 WBC RBC Hgb Hct MCV MCH MCHC RDW Plt Count MPV % Immature Plt Fraction Sodium Potassium Chloride Carbon Dioxide Anion Gap BUN Creatinine Estim Creat Clear Calc Estimated GFR Glucose POC Capillary Glucose 96 Calcium Total Bilirubin AST ALT Alkaline Phosphatase Total Protein Albumin TSH (Reflex) 0.034 L Free T4 1.55 Free T3 pg/mL 2.65 Total T3 0.53 L 11/16/24 11/16/24 11/16/24 15:14 16:40 22:20 WBC RBC Hgb Hct MCV MCH MCHC RDW Plt Count MPV % Immature Plt Fraction Sodium Potassium Chloride Carbon Dioxide Anion Gap BUN Creatinine Estim Creat Clear Calc Estimated GFR Glucose POC Capillary Glucose 90 98 Calcium Total Bilirubin AST ALT Alkaline Phosphatase Total Protein Albumin TSH (Reflex) Free T4 Free T3 pg/mL Cancelled Total T3 11/17/24 11/17/24 04:14 07:46 WBC 4.7 RBC 4.03 L Hgb 12.7 Hct 38.1 MCV 94.5 MCH 31.5 MCHC 33.3 RDW 14.5 Plt Count 117 L MPV 9.5 % Immature Plt Fraction 2.0 Sodium 139 Potassium 4.6 Chloride 109 H Carbon Dioxide 28 Anion Gap 2 L BUN 14 D Creatinine 1.40 H Estim Creat Clear Calc 38 Estimated GFR 37 L Glucose 79 POC Capillary Glucose 79 Calcium 8.6 Total Bilirubin 1.2 AST 187 H ALT 199 H Alkaline Phosphatase 70 Total Protein 5.6 L Albumin 2.9 L TSH (Reflex) Free T4 Free T3 pg/mL Total T3
[2024-11-17 12:00] VITALS: PULSE 72
[2024-11-17 14:00] VITALS: BP 141/72; PULSE 71; RESP 18; TEMP 36.8; O2SAT 100
--- NOTE | 2024-11-17 14:20 | PM.DS ---
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: without fpc use Diabetes mellitus complication status: with kidney complications Diabetes mellitus complication detail: with chronic kidney disease Chronic kidney disease stage: unspecified stage Qualified Code(s): E11.22 - Type 2 diabetes mellitus with diabetic chronic kidney disease Code(s): E11.9 - Type 2 diabetes mellitus without complications Status: Acute (6) Hypothyroidism (acquired): Code(s): E03.9 - Hypothyroidism, unspecified Status: Acute (7) Hyperlipidemia: Qualifiers: Hyperlipidemia type: mixed hyperlipidemia Qualified Code(s): E78.2 - Mixed hyperlipidemia Code(s): E78.5 - Hyperlipidemia, unspecified Status: Acute Assessment and Plan: Continue atorvastatin 20 mg daily (8) Coronary artery disease: Qualifiers: Coronary Disease-Associated Artery/Lesion type: unspecified vessel or lesion type [place] vs. transplanted heart: [place] heart Associated angina: unspecified whether angina present Qualified Code(s): I25.10 - Atherosclerotic heart disease of [place] coronary artery without angina pectoris Code(s): I25.10 - Atherosclerotic heart disease of [place] coronary artery without angina pectoris Status: Acute (9) Depression: Qualifiers: Depression Type: unspecified Qualified Code(s): F32.9 - Major depressive disorder, single episode, unspecified Code(s): F32.9 - Major depressive disorder, single episode, unspecified Status: Acute DS: Summary Hospital Course Hospital Course: 74 year old female with past medical history of CAD, DM, CKD, diastolic dysfunction, vertigo, SCT, HTN, HLD, and hypothyroidism presents to the hospital for nausea and vomiting. Several issues were addressed: # Elevated LFT's LFTs elevated on admission tot bili 1.7, AST 101, ALT 63, alk phos WNL Has been uptrending since early 10/2024. Previously WNL in 03/2024 Lipase WNL Possibly medication induced however no recent medication changes, currently on atorvastatin, prozac, synthroid, and losartan Liver enzymes remain elevated however stable CT abdomen/pelvis showed fatty infiltration of the liver Prior US abdomen 10/23: Echogenic appearing pancreas, of doubtful clinical significance unless pancreatic labs are abnormal.Cirrhosis.Status post cholecystectomy. No common bile duct dilation.Ascites. Hepatitis panel negative GI consulted, appreciate recommendations Patient had uncontrolled atrial fibrillation. Abrupt increase in her transaminase levels may be due to a degree of hepatic ischemia caused by these factors. Since her arrhythmia is controlled and her fluid volume has been restored, we expect her transaminase levels to decrease. Antinuclear antibody (FRANCK) and smooth muscle antibody (SMA) pending GI was following: The patient's transaminase levels are much improved from the day before, supporting the hypothesis of liver hypoperfusion secondary to decompensated arrhythmia. Will sign off for now, please let us know if there is any changing her current status, however we anticipate the transaminases will continue to normalize. #Atrial tachycardia: - Likely cause: dehydration - TSH ordered to rule out metabolic cause for tachyarrhythmia TSH low, T4 and T3 pending Possible underlying hyperthyroid causing palpitations - EKG: aflutter with RVR HR 125 on admission - Echo LVEF 60-65% with diastolic dysfunction - Telemetry reviewed and patient remains in sinus rhythm Discussed EKG finding of atrial flutter/tachycardia with RVR with cardiology [employer]ER who states that the EKG appears to be atrial tachycardia with a possible first degree block. No anticoagulation recommended at this time or beta hamzah. Recommend a longer Holter monitor of 30 days be placed to further assess patients arrhythmia prior to discharge 48 hr holter monitor 11/01 Predominant rhythm is sinus rhythm. HR range 56-154 bpm; average HR 78 bpm. 172 premature supraventricular complexes and 16 supraventricular couplets. 50 runs of atrial tachycardia, fastest at 154 bpm and longest lasting 359 beats. 28 premature ventricular complexes. No ventricular tachycardia. No sinoatrial or atrioventricular blocks. No significant pauses greater than 2 seconds. Holter monitor of 30 days be placed # Acute kidney injury superimposed on CKD BUN/Cr 30/2.08 with GFR 23 on admission, baseline seems to run ~ 1.3 - 1.7mg/dl in the last few years. Follows with nephrology Dr. Krishnamurthy, last seen 10/05/24 Likely secondary to dehydration related to patients nausea/vomiting BUN/Cr returned to baseline with IV fluids, IV fluids discontinued Monitor I/O Renally dose medications Avoid nephrotoxic medications Resolved. # DM type 2 (diabetes mellitus, type 2): - hypoglycemia protocol - POC blood glucose ACHS - home medication - ozempic - correct regimen ordered - low dose TIDWM and HS - A1C 4.8 Glucose well controlled. Continue to monitor. # Hypothyroidism (acquired): Continue levothyroxine 125 mcg daily # Hyperlipidemia: Continue atorvastatin 20 mg daily # Coronary artery disease: Chronic Continue aspirin, Lipitor, continue Cozaar # Depression: Continue Prozac 20 mg daily Status at Discharge Functional status at discharge: independent ambulation Overall status at discharge: patient is progressing back to baseline Time Spent with Patient Time attestation: Total time spent providing and/or coordinating discharge services: Time spent: Greater than 30 minutes Exam Narrative: General: female in no acute respiratory distress who is nontoxic appearing, sitting up in bed. HEENT: Normocephalic. Atraumatic. Extraocular movement intact. Sclera clear and anicteric. No facial asymmetry. Chest: Lungs are clear to auscultation bilaterally. No wheezes or crackles. CV: Heart was regular rate and rhythm. Abd: Abdomen was soft. Nontender. Nondistended. Positive bowel sounds. Ext: No clubbing, cyanosis, or edema. DP pulses bilaterally. Neuro: Patient is alert. Speech is clear. Const: General: comfortable DS: Data Data Completed and Pending Labs on day of discharge: Labs from last 24 hours 11/17/24 11/17/24 11/17/24 11:34 07:46 04:14 WBC 4.7 RBC 4.03 L Hgb 12.7 Hct 38.1 MCV 94.5 MCH 31.5 MCHC 33.3 RDW 14.5 Plt Count 117 L MPV 9.5 % Immature Plt Fraction 2.0 Sodium 139 Potassium 4.6 Chloride 109 H Carbon Dioxide 28 Anion Gap 2 L BUN 14 D Creatinine 1.40 H Estim Creat Clear Calc 38 Estimated GFR 37 L Glucose 79 POC Capillary Glucose 92 79 Calcium 8.6 Total Bilirubin 1.2 AST 187 H ALT 199 H Alkaline Phosphatase 70 Total Protein 5.6 L Albumin 2.9 L Free T4 Free T3 pg/mL Total T3 Actin IgG Antibody 11/16/24 11/16/24 11/16/24 22:20 16:40 15:14 WBC RBC Hgb Hct MCV MCH MCHC RDW Plt Count MPV % Immature Plt Fraction Sodium Potassium Chloride Carbon Dioxide Anion Gap BUN Creatinine Estim Creat Clear Calc Estimated GFR Glucose POC Capillary Glucose 98 90 Calcium Total Bilirubin AST ALT Alkaline Phosphatase Total Protein Albumin Free T4 Free T3 pg/mL Cancelled Total T3 Actin IgG Antibody 11/16/24 11/16/24 11/16/24 15:05 09:06 04:25 WBC RBC Hgb Hct MCV MCH MCHC RDW Plt Count MPV % Immature Plt Fraction Sodium Potassium Chloride Carbon Dioxide Anion Gap BUN Creatinine Estim Creat Clear Calc Estimated GFR Glucose POC Capillary Glucose Calcium Total Bilirubin AST ALT Alkaline Phosphatase Total Protein Albumin Free T4 1.55 Free T3 pg/mL 2.65 Total T3 0.53 L Actin IgG Antibody 4 Discharge Plan Discharge Attending physician on discharge: Stoney Archuleta Consulting providers: Katia Segal Discharging Clinician: Jacey Kimball Patient Disposition: Home Activity: july shower Diet: heart healthy Discharge Instructions: You were admitted for nausea and vomiting. Liver enzymes were elevated. GI was consulted and no interventions were needed. levels are much improved from the day before, supporting the hypothesis of liver hypoperfusion secondary to decompensated arrhythmia. You will be discharged home with 30 days Holter monitor and close monitoring with cardiology. Patient Instructions: Antibiotic Form Patient Language: Portuguese Stand Alone Forms: General Discharge Information Follow-up/Referrals: Rojelio Ahuja MD [Physician, Cardiology] - 2 Weeks Kapil Cassidy MD [Primary Care Provider, Internal Medicine] - 2 Weeks Discharge Medications: Continued latanoprost 0.005 % drops 1 drp LEFT EYE HS albuterol sulfate [Ventolin HFA] 90 mcg/actuation HFA aerosol inhaler 1 puff inhalation Q4H PRN (Reason: shortness of breath or wheezing) Qty: 8.5 1RF aspirin [Adult Low Dose Aspirin] 81 mg tablet,delayed release (DR/EC) 81 mg PO DAILY biotin 1 mg tablet 1 mg PO DAILY mecobalamin (vitamin B12) 1,000 mcg tablet,disintegrating 1,000 mcg sublingual DAILY Rx Instructions: place tablet under tongue and allow to dissolve for at least30 secs before swallowing cholecalciferol (vitamin D3) 25 mcg (1,000 unit) Capsule 25 mcg PO DAILY acetaminophen [Tylenol Extra Strength] 500 mg Tablet 1,000 mg PO Q6H PRN (Reason: Pain or fever) ascorbic acid (vitamin C) 1,000 mg Tablet 1 g PO DAILY brimonidine-timolol [Combigan] 0.2-0.5 % drops 1 drp LEFT EYE Q12H multivitamin [One Daily Multivitamin] Tablet 1 tablet PO DAILY fluoxetine 20 mg capsule 20 mg PO DAILY Qty: 90 1RF losartan 50 mg tablet 50 mg PO DAILY Qty: 90 1RF montelukast 10 mg tablet 10 mg PO DAILY Qty: 90 1RF atorvastatin 20 mg tablet 20 mg PO DAILY Qty: 90 1RF niacin 1,000 mg tablet extended release 24 hr See Rx Instructions .ROUTE .COMPLEX Qty: 90 1RF Dose Instruction: TAKE 1 TABLET DAILY Rx Instructions: TAKE 1 TABLET DAILY icosapent ethyl 1 gram capsule See Rx Instructions .ROUTE .COMPLEX Qty: 360 1RF Dose Instruction: TAKE 2 CAPSULES TWICE DAILY Rx Instructions: TAKE 2 CAPSULES TWICE DAILY dapaglifloz propaned-metformin [Xigduo XR] 10-1,000 mg tablet, IR - ER, biphasic 24hr 1 tablet PO DAILY Qty: 90 2RF levothyroxine [Synthroid] 125 mcg tablet See Rx Instructions .ROUTE .COMPLEX Qty: 90 1RF Dose Instruction: TAKE 1 TABLET EVERY MORNING Rx Instructions: TAKE 1 TABLET EVERY MORNING Discontinued Ozempic 1 mg/dose (4 mg/3 mL) pen injector 1 mg subcut WEEKLY Qty: 3 0RF Other Ambulatory Orders: GA cardiac event monitor (Routine) Timeframe: 1 Month Location: [facility] [place] Cardiology Ordered By: Aixa Joseph Date of admission: 11/14/24 11:22 Primary Care Provider: Kapil Cassidy Admitting Provider: Stoney Archuleta Attending physician on admission: Stoney Archuleta Condition: Stable Hospitalist MIPS Heart Failure (Exclusion) Patient has history of Heart Transplant or Left Ventricular Assistive Device?: No IF YES, STOP HERE Heart Failure (Qualifier) Patient has current or prior documentation of LVEF less than or equal to 40%, or mod/servere depressed LVSF?: No IF NO, STOP HERE
[2024-11-17 18:08] LABS: ANA by IFA Rfx Titer/Pattern Negative (.)
== END 2024-11-17 15:44 | disposition home or self-care (01) | DRG 309 ==
LOC: ANHED 15:09 → ANH2MED 18:08
PROVIDERS: Internal Medicine Gastroenterology; Nurse Practitioner Gerontology; Student in an Organized Health Care Education/Training Program; Admitting Provider General Practice; Emergency Provider Emergency Medicine; PCP Internal Medicine; Visit Provider Nurse Practitioner
DX: I47.19 Other supraventricular tachycardia (principal); I13.0 Hypertensive heart and chronic kidney disease with heart failure and stage 1 through stage 4 chronic kidney disease, or unspecified chronic kidney disease; N17.9 Acute kidney failure, unspecified; I50.32 Chronic diastolic (congestive) heart failure; E11.22 Type 2 diabetes mellitus with diabetic chronic kidney disease; N18.9 Chronic kidney disease, unspecified; I25.10 Atherosclerotic heart disease of native coronary artery without angina pectoris; R11.10 Vomiting, unspecified; I48.91 Unspecified atrial fibrillation; E03.9 Hypothyroidism, unspecified; R79.89 Other specified abnormal findings of blood chemistry; F32.9 Major depressive disorder, single episode, unspecified; E78.2 Mixed hyperlipidemia; Z79.51 Long term (current) use of inhaled steroids; Z79.85 Long-term (current) use of injectable non-insulin antidiabetic drugs; Z79.899 Other long term (current) drug therapy; Z96.651 Presence of right artificial knee joint
CPT/HCPCS: 36415; 74176; 76705; 80053; 80074; 82948; 83036; 83690; 83735; 84439; 84443; 84480; 84481; 85025; 85027; 85055; 86015; 86038; 93005; 93306; 93976; 96361; 96374; 96375; 96376; 99285; A9270; G0378; J1650; J2405; J7030

== ENCOUNTER 2024-12-08 08:30 | Outpatient (CLI) | payer BC, SELFPAY ==
--- OUTSIDE RECORDS SUMMARY | 2007-01-15 05:53 | XMS_ITS | Continuity of Care Document ---
Author Organization [facility] [place] [address] [place] [address] Phone Care Team Providers Care Finishing Room Operator Name Role Phone Lopez OD, Temo Unavailable Unavailable Procedures Procedure Date CL Replacement - Taran Other 7 Tax - Medical CL Replacement - Vistakon Disp W/BW Soft Tax - Medical Eye Exam & Treatment Refraction Advance Directives Directive Yes / No Effective Date File Name No Information Encounters Encounter Description Practice Location Reason(s) For Visit Diagnoses Date Provider Providers Copied on Encounter [facility], [address] [place] [address] [address], [place], [place], [id number], [place] tel:[phone] [facility] No Information Dec- 5-200 7 Lopez OD Temo. [address] , [address], [place], [place], [facility], [place]. tel:[phone] [facility], [id number] [place] [address] [address], [place], [place], [id number], [place] tel:[phone] [facility] No Information July-0 7-200 7 Lopez OD Temo. [address] , [address], [place], [address], [place]. tel:[phone] [facility], [address], [place], [place], [id number], tel:[phone] [facility] No Information May-0 1-200 7 Lopez OD Temo. [address] , [address], [place], [address], [place]. tel:[phone] Referring Provider: Kapil Cassidy MD C, [address], [place], [address]. tel:[phone] Family History Family Member Type Diagnosis Age At Onset No Information Payers Payer name Insurance type Covered republican ID Authoriza tion(s) No Information Social History Type Description Quantity Date Captured Comments Sex Female Smoking Status No Information Chief Complaint And Reason For Visit No Information Reason For Referral Reason For Referral No Information History Of Present Illness Encounter Date Complaint History Of Prese nt Illness No Information Functional Status Date Functional Assessmen t No Information Instructions Date Instruction Additional Infor mation No Information Assessments Type Assessment Date No Information Patient Care Teams Name Effective Dates (start - stop) Status Members No Information
--- OUTSIDE RECORDS SUMMARY | 2024-06-02 09:37 | XMS_ITS | Continuity of Care Document ---
Author Organization [facility] Address [address] [facility] [address] [place] [address] Phone Care Team Providers Care Performance Improvement Director Name Role Phone Gilbert Leo MD Unavailable [...] Copied on Encounter [facility], [address] [place] [address], [id number], tel:[phone] [facility] No Information 5 Ahmet Hunt. [address] [place] [address], [id number], [place]. tel:[phone] Referring Provider: Kapil Cassidy MD, [address], [place], [place], [facility]. tel:[phone] OFFICE/OUTPA TIENT VISIT, EST [facility], [address] [place] [address], [id number], tel:[phone] [facility] Ocular Hypertension (chief complaint)Gla ucoma (chief complaint)Nidia betic eye exam (chief complaint) Bilateral ocular hypertension Malignant glaucoma of left eyePseudopha isis of both eyesMeibomia n gland dysfunction (MGD) of both eyes 5 Ahmet Hunt. [address] [place] [address], [id number], . tel:[phone] Referring Provider: Kapil Cassidy MD, [address], [place], [address]. tel:[phone] [facility], [address] [place] [address], [id number], [place] tel:[phone] [facility] No Information Dec-0 4 Marizol Fields. [address] [place] [address], [id number], [place]. tel:[phone] [facility], [address] [place] [address], [id number], tel:[phone] [facility] No Information Oct-0 4 Ahmet Hunt. [address] [place] [address], [id number], [place]. tel:[phone] OFFICE/OUTPA TIENT VISIT, EST [facility], [address] [place] [address], [id number], [place] tel:[phone] [facility] Glaucoma, followup (chief complaint)Nidia betic eye exam (chief complaint) Bilateral ocular hypertension Malignant glaucoma of left eyePseudopha isis of both eyesMeibomia n gland dysfunction (MGD) of both eyes 4 Ahmet Gilbert. [address] [place] [address], [id number], [place]. tel:[phone] Referring Provider: Gilbert Leo, [address] [place] [address], [id number]. tel:[phone] OFFICE/OUTPA TIENT VISIT, EST [facility], [address] [place] [address], [id number], [place] tel:[phone] [facility] Glaucoma, followup (chief complaint)Nidia betic eye exam (chief complaint) Bilateral ocular hypertension Malignant glaucoma of left eyePseudopha isis of both eyesMeibomia n gland dysfunction (MGD) of both eyes 3 Ahmet Hunt. [address] [place] [address], [id number], [place]. tel:[phone] Referring Provider: Kapil Cassidy MD, [address], [place], [address]. tel:[phone] [facility], [address] [place] [address], [place], [place], [id number], [place] tel:[phone] [facility] No Information Dec-2 2 Maksim Rey. [address] [facility], [address], [place], [place], [id number], [place]. tel:[phone] Referring Provider: Franki Wagner, [address] [facility] , [place], [address]. tel:[phone] OFFICE/OUTPA TIENT VISIT, EST [facility], [address] [place] [address], [id number], tel:[phone] [facility]PH [facility]ANCH[facility] FELICIANO decreased vision (chief complaint)OHT (chief complaint)typ e II DM (chief complaint) Other secondary cataract, right eyeBilateral ocular hypertension Malignant glaucoma of left eyePseudopha isis of both eyesMeibomia n gland dysfunction (MGD) of both eyes Oct-0 2 Maksim Rey. [address] [facility], [address], [place], [place], [id number], [place]. tel:[phone] Referring Provider: Kapil Cassidy MD, [address], [place], [address]. tel:[phone] OFFICE/OUTPA TIENT VISIT, EST [facility], [address] [place] [address], [id number], tel:[phone] [facility] Occular Hypertension (chief complaint)Nidia betic eye exam (chief complaint) Bilateral ocular hypertension Malignant glaucoma of left eyePseudopha isis of both eyesMeibomia n gland dysfunction (MGD) of both eyes 2 Ahmet Hunt. [address] [place] [address], [id number], [place]. tel:[phone] Referring Provider: Gilbert Leo, [address] [place] [address], [id number]. tel:[phone] OFFICE/OUTPA TIENT VISIT, EST [facility], [address] [place] [address], [id number], tel:[phone] [facility] Blurry vision (chief complaint)Gla ucoma, followup (chief complaint) Bilateral ocular hypertension Malignant glaucoma of left eyePseudopha isis of both eyesMeibomia n gland dysfunction (MGD) of both eyes 1 Ahmet Hunt. [address] [place] [address], [id number], [place]. tel:[phone] Referring Provider: Gilbert Ahmet, [address] [facility], [place], [address]. tel:[phone] OFFICE/OUTPA TIENT VISIT, [facility], [address] [place] [address], [place], [place], [id number], [place] tel:[phone] [facility] KANCH[facility] FELICIANO open angle glaucoma (chief complaint) Aqueous misdirection of left eyePseudoaph akiaOpen angle with borderline findings, low risk, bilateral 1 Cuong Diez. [address] [facility] [facility], [address], [place], [address], [place]. tel:[phone] Referring Provider: Kapil Cassidy MD, [address], [place], [address]. tel:[phone] [facility], [address] [place] [address], [id number], [place] tel:[phone] [facility] follow up (chief complaint) Aqueous misdirection of left eye 1 Cuong Diez. [address], [address], [place], [address], [place]. tel:[phone] Referring Provider: Kapil Cassidy MD, [address], [place], [address]. tel:[phone] [facility], [address] [place] [address], [place], [place], [id number], [place] tel:[phone] [facility] FELICIANO Post-Op (chief complaint) Aqueous misdirection of left eye 0 Cuong Diez. [address], [address], [place], [address], [place]. tel:[phone] Referring Provider: Kapil Cassidy MD, [address], [place], [address]. tel:[phone] [facility], [address] [place] [address], [place], [place], [id number], [place] tel:[phone] [facility] Post-Op (chief complaint) Aqueous misdirection of left eye 0 Cuong Diez. [address], [address], [place], [address], [place]. tel:[phone] Referring Provider: Kapil Cassidy MD, [address], [place], [address]. tel:[phone] [facility], [address] [place] [address], [place], [place], [id number], [place] tel:[phone] [facility] No Information [address]. [address] [place] [address], [address], [place], [address], [place]. tel:[phone] Referring Provider: Rg Rdz, [address] [place] [address] [address], [place], [address]. tel:[phone] OFFICE/OUTPA TIENT VISIT, EST [facility], [address] [place] [address] [address], [place], [place], [id number], [place] tel:[phone] [facility] FELICIANO Aqueous Misdirection (chief complaint) Aqueous misdirection of left eyeOpen angle with borderline findings, low risk, bilateralPse udoaphakia 0 Cuong Diez. [address] [facility], [address], [place], [address], [place]. tel:[phone] Referring Provider: Kapil Cassidy MD, [address], [place], [address]. tel:[phone] OFFICE/OUTPA TIENT VISIT, EST [facility], [address] [place] [address], [place], [place], [id number], [place] tel:[phone] [facility] Punctate Keratitis f/u (chief complaint)DMI I (chief complaint) Type 2 diabetes without complication Bilateral keratoconjun ctivitis sicca, not specified as Sjogren'sPse udoaphakiaAn atomical narrow angle, left eye Oct-3 0 Cuong Diez. [address], [address], [place], [address], [place]. tel:[phone] Referring Provider: Franki Wagner, [facility] [facility] , [place], [address]. tel:[phone] OFFICE/OUTPA TIENT VISIT, EST [facility], [address] [place] [address], [place], [place], [id number], [place] tel:[phone] [facility]CH[facility] FELICIANO F/U Punctate Keratitis (chief complaint) Punctate keratitis of left eyePseudoaph akiaPain around left eye 9 Derheimer OD Sonia. [address], [address], [place], [place], [id number], [place]. tel:[phone] Referring Provider: Sonia Kramer OD, [address], [place], [address]. tel:[phone] OFFICE/OUTPA TIENT VISIT, EST [facility], [address] [place] [address], [place], [place], [id number], [place] tel:[phone] OPH CONSULT KANCHAN FELICIANO trouble with ctls (chief complaint) Pseudoaphaki aPain around left eyePunctate keratitis of left eyeAcute atopic conjunctivit is, left eye 9 Derheimer OD Sonia. [address] [facility], [address], [place], [place], [id number], [place]. tel:[phone] Referring Provider: Candido Garcia, [address], [place], [address]. tel:[phone] [facility], [address] [place] [address], [id number], [place] tel:[phone] OPH CONSULT KANCH[facility] FELICIANO Post-Op (chief complaint) Presence of intraocular lens 9 Maksim Rey. [address], [address], [place], [place], [id number], [place]. tel:[phone] Referring Provider: Candido Garcia, [address], [place], [address]. tel:[phone] [facility], [address] [place] [address], [id number], tel:[phone] OPH CONSULT KANCHAN FELICIANO post op (chief complaint) Pseudoaphaki a 9 Williams OD Sonia. [address], [address], [place], [place], [id number], [place]. tel:[phone] Referring Provider: Sonia Kramer OD, [address], [place], [address]. tel:[phone] [facility], [address] [place] [address], [id number], tel:[phone] OPH CONSULT KANCHAN FELICIANO post op (chief complaint) Presence of intraocular lens 9 Maksim Rey. [address], [address], [place], [place], [id number], [place]. tel:[phone] Referring Provider: Candido Garcia, [address], [place], [address]. tel:[phone] [facility], [address] [place] [address], [id number], [place] tel:[phone] [facility] No Information 9 Maksim Rey. [address], [address], [place], [place], [id number], [place]. tel:[phone] Referring Provider: Candido Garcia, [address], [place], [address]. tel:[phone] [facility], [address] [place] [address], [id number], [place] tel:[phone] OPH CONSULT KANCHAN FELICIANO MR (chief complaint) No Information 9 Maksim Rey. [address], [address], [place], [place], [id number], [place]. tel:[phone] Referring Provider: Candido Garcia, [address], [place], [address]. tel:[phone] [facility], [address] [place] [address], [id number], tel:[phone] OPH CONSULT KANCHAN FELICIANO Post-Op (chief complaint) Pseudoaphaki a 9 Derheimer OD Sonia. [address], [address], [place], [place], [id number], [place]. tel:[phone] Referring Provider: Candido Garcia, [address], [place], [address]. tel:[phone] [facility], [address] [place] [address], [id number], [place] tel:[phone] [facility] [place] No Information 8 Maksim Rey. [address], [address], [place], [place], [id number], [place]. tel:[phone] Referring Provider: Candido Garcia, [address], [place], [address]. tel:[phone] [facility], [address] [place] [address], [id number], [place] tel:[phone] OPH CONSULT KANCHAN FELICIANO post op (chief complaint) Anatomical narrow angle, bilateral 8 Maksim Rey. [address], [address], [place], [place], [id number], [place]. tel:[phone] Referring Provider: Candido Garcia, [address], [place], [address]. tel:[phone] [facility], [address] [place] [address], [id number], tel:[phone] [facility] [place] No Information 8 Maksim Rey. [address], [address], [place], [place], [id number], . tel:[phone] Referring Provider: Candido Garcia, [address], [place], [address]. tel:[phone] [facility], [address] [place] [address], [id number], tel:[phone] [facility] [place] No Information 8 Maksim Rey. [address], [address], [place], [place], [id number], [place]. tel:[phone] Referring Provider: Candido Garcia, [address], [place], [address]. tel:[phone] OFFICE/OUTPA TIENT VISIT, [facility], [address] [place] [address], [id number], tel:[phone] OPH CONSULT KANCHAN FELICIANO cataract eval (chief complaint) Age-related nuclear cataract, bilateralTyp e 2 diabetes without complication Squamous blepharitis left lower eyelidDermat ochalasis of left upper eyelidBilate ral keratoconjun ctivitis sicca, not specified as Sjogren's 8 Maksim Rey. [address], [address], [place], [place], [id number], [place]. tel:[phone] Referring Provider: Candido Garcia, [address], [place], [address]. tel:[phone] Family History Family Member Type Diagnosis Age At Onset Father Problem Cardiovascular disease Brother Problem Cardiovascular disease Payers Payer name Insurance type Covered green party ID Authoriza tion(s) [facility] [id number] Social History Type Description Quantity Date Captured Comments Sex Female Smoking Status No Information Chief Complaint And Reason For Visit No Information Reason For Referral Reason For Referral No Information Plan Of Treatment Date Type Action Status Referral Ordered: Daryl Doan -[facility] Providers : Fine Wire Drawer (related to Aqueous misdirection of left eye) ordered Referral Ordered: Daryl Doan -[facility] Providers : Fine Wire Drawer (related to Aqueous misdirection of left eye) ordered Referral Referred To: Daryl Doan [address] [facility] [place], [phone] Ordered: Referrals: [facility] Providers : Fine Wire Drawer. Daryl Doan ordered Referral Ordered: Ole Kimball -Ophthalmology (related to Pseudoaphakia) ordered Referral Referred To: Ole Kimball [address] [facility] [address] [place], [phone] Ordered: Referrals: Ophthalmology. Ole Kimball. Evaluate and treat ordered Appointment Elizabeth De Leon BOOKED Future Order: Radiology Order Ze iss Clarus 700. ([id number]), Sent on: Sent History Of Present Illness [...] exam sent to Dr. Bassem Brito @ [facility] Post-Op Additional infor mation: Pt presents for [...] is stable. Pt uncertain of BS or H3K--jvlv she is borderlineReferring: Dr. Cassidy (PCP) Punctate [...] high pressures being high. Dr. 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
--- NOTE | ~2024-12-08 | NM_ITS ---
EXAMINATION: NM marisol stress w perfusion DATE: 12/08/2024 12:06 INDICATION: Shortness of breath. TECHNIQUE: Rest images were obtained following intravenous administration of 11.22 mCi Tc99m tetrofosmin (Myoview). The patient was infused intravenously with Lexiscan (regadenoson). Then, 34.9 mCi Tc99m tetrofosmin (Myoview) was administered intravenously, and stress images were obtained. Data was rec onstructed into short axis and horizontal and vertical long axis SPECT images. Gated SPECT images were also obtained. COMPARISON: Myocardial perfusion imaging 09/15/2023 FINDINGS: There is no definite reversible or fixed perfusion abnormality to suggest ischemia or infarction. There is no segmental wall motion abnormality. Left ventricular ejection fraction measures >70%. IMPRESSION: 1. No definite ischemia or infarct. 2. Normal left ventricular ejection fraction measuring >70%. Reviewed, dictated and finalized at location E.
--- NOTE | 2024-12-08 08:33 | EST_ITS ---
Patient Info Name: Elizabeth De Leon Age: 74 years : 1950 Gender: Female Ht: 70 in Wt: 200 lbs BSA: 2.14 m2 HR: 65 bpm BP: 123 / 79 mmHg Exam Date: 12/08/2024 8:33 AM Patient Status: O Admit Date: 12/08/2024 Exam Type: CA stress marisol w NM A regadenoson stress test was performed. Staff Referring Physician: Kapil Cassidy MD Attending Provider: Kapil Cassidy MD Exercise Technologist: Radha Alfredo Exercise Physician: Joshua Reed DO Summary 1. 1. Negative lexiscan stress test for ischemic ST changes by ECG criteria. 2. 2. Stable hemodynamics throughout the test. 3. 3. Nuclear scan to follow and will be reported separately. Please correlate with it. 4. 4. Patient informed of the above results. Protocol: Lexiscan Stress ECG Details Stage: REST Duration (min): 5 min : 0 sec HR (bpm): 67 SBP (mmHg): 120 DBP (mmHg): 74 Stage: STAGE 1 Duration (min): 1 min : 0 sec HR (bpm): 81 SBP (mmHg): 122 DBP (mmHg): 74 Stage: RECOVERY Duration (min): 1 min : 0 sec HR (bpm): 112 SBP (mmHg): 122 DBP (mmHg): 74 Stage: RECOVERY Duration (min): 2 min : 0 sec HR (bpm): 110 SBP (mmHg): 122 DBP (mmHg): 74 Stage: RECOVERY Duration (min): 3 min : 0 sec HR (bpm): 107 SBP (mmHg): 110 DBP (mmHg): 68 Stage: RECOVERY Duration (min): 4 min : 0 sec HR (bpm): 109 SBP (mmHg): 110 DBP (mmHg): 68 Stage: RECOVERY Duration (min): 5 min : 0 sec HR (bpm): 99 SBP (mmHg): 112 DBP (mmHg): 73 Stage: RECOVERY Duration (min): 5 min : 17 sec HR (bpm): 90 SBP (mmHg): 112 DBP (mmHg): 73 Rest HR: 67 bpm Peak HR: 115 bpm Rest Sys BP: 120 mmHg Peak Sys BP: 122 mmHg Max Pred HR: 144 bpm % Max Pred HR: 80 % Target HR: 122 bpm Max RPP: 14,030 bpm*mmHg Termination Reason: Completed protocol Cardiac Symptoms: Shortness of breath Total Time: 1 min : 0 sec Rest Jean BP: 74 mmHg Peak Jean BP: 74 mmHg Total Dose: 0.4 mg Resting ECG Sinus rhythm, possible anterior infarct, possible inferior infarct, age indeterminate. Stress ECG No ST changes. Arrhythmias None. Report Signatures
--- OUTSIDE RECORDS SUMMARY | 2024-12-08 09:03 | XMS_ITS | Clinical Summary ---
Author Organization [facility] Address [address] [place] [address] Care Team Providers Care Security Field Supervisor Name Role Phone Unavailable Primary Care Provider Unavailabl e Source Comments [facility],non-owned Affiliates and Associated Physician Practices is amultiple site organization consisting of ambulatory clinics and hospital sitesin [place], [place], [place] and [place]. This disclosure is being madepursuant to the Care Everywhere program and may not contain all information available regarding this patient. 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 Gender Identity Not on file Sexual Orientation [...] yrs (1 - 1-dose 75+ series) 02/25/2023 DEPRESSION SCREENING 03/24/2024 COVID-19 VACCINE (1 - 2023-2 5 season) 2024 INFLUENZA VACCINE (#1) 2024 HEPATITIS B VACCINE [...] patient's age to complete this topic Insurance [facility] SELF PAY NO INSURANCE Member Subscriber Plan / Payer (Ef fective for All Dates) Name:Leopoldo De Leon Homero Member ID:Not on file Relation to Subscriber:Not on file Name:LEOPOLDO DE LEON I Subscriber ID:Not on file (Home) [facility] [facility] [place] [address] Payer ID:Not on file Group ID:Not on file Type:Self Pay Address: [facility]
--- NOTE | 2024-12-08 09:10 | ECHO_ITS ---
Patient Info Name: Elizabeth De Leon Age: 74 years : 1950 Gender: Female Ht: 70 in Wt: 200 lbs BSA: 2.14 m2 HR: 66 bpm BP: 128 / 98 mmHg Technical Quality: Good Exam Date: 12/08/2024 9:21 AM Patient Status: O Admit Date: 12/08/2024 Exam Type: CA echo doppler color flow Complete two-dimensional, color flow and Doppler transthoracic echocardiogram is performed. Staff Referring Physician: Kapil Cassidy MD Shear Helper: Lorena Major Attending Provider: Kapil Cassidy MD Summary 1. Complete two-dimensional, color flow and Doppler transthoracic echocardiogram is performed. 2. Left ventricular chamber dimension is normal. 3. Left ventricular systolic function is normal, estimated at 60-65. 4. The left ventricular diastolic function is grade I diastolic dysfunction. 5. E/e' 9 is minimally elevated. 6. There is mild aortic valve sclerosis. Left Ventricle E/e' 9 is minimally elevated. Left ventricular chamber dimension is normal. Left ventricular systolic function is normal, estimated at 60-65. The left ventricular diastolic function is grade I diastolic dysfunction. Right Ventricle Right ventricular chamber dimension is normal. Right ventricular systolic function is normal. Left Atria Left atrial chamber dimension is normal. Right Atria Right atrial chamber dimension is normal. Aortic Valve The aortic valve is trileaflet. There is mild aortic valve sclerosis. There is no aortic valve stenosis. There is no aortic valve regurgitation. Pulmonic Valve There is no pulmonic regurgitation. Mitral Valve There is no mitral valve stenosis. There is no mitral valve regurgitation. Tricuspid Valve There is no tricuspid valve regurgitation. Pericardium/Pleural There is no pericardial effusion. Inferior Vena Cava Normal inferior vena cava with >50% collapse upon inspiration consistent with normal right atrial pressure, 5 mmHg. Aorta The aortic root size at the sinus of Valsalva is normal. Left Ventricular Outflow Tract Name Value Normal LVOT 2D LVOT Diameter 2.0 cm LVOT Doppler LVOT Peak Velocity 106 cm/s LVOT Peak Gradient 4 mmHg LVOT Mean Gradient 2 mmHg LVOT VTI 23 cm LVOT Stroke Volume 70 ml LVOT CO 4.6 l/min LVOT CI 2.1 l/min/m2 Mitral Valve Name Value Normal MV Diastolic Function MV E Peak Velocity 65 cm/s MV A Peak Velocity 84 cm/s MV E/A 0.8 MV Decel Time (PW) 339 ms MV Annular TDI MV E/e' (Septal) 11.6 MV E/e' (Lateral) 8.1 MV E/e' (Average) 9.8 Tricuspid Valve Name Value Normal Estimated PAP/RSVP RA Pressure 5 mmHg <=5 Aortic Valve Name Value Normal AV Regurgitation 2D LVOT Area 3.0 cm2 Ventricles Name Value Normal LV Dimensions 2D/MM IVS Diastolic Thickness (2D) 1.1 cm 0.6-1.0 LVID Diastole (2D) 2.2 cm 3.8-5.2 LVIW Diastolic Thickness (2D) 1.0 cm 0.6-0.9 LVID Systole (2D) 1.6 cm 2.2-3.5 LVOT Diameter 2.0 cm LV Mass (2D Cubed) 55.55 g 67.00-162.00 LV Mass Index (2D Cubed) 26 g/m2 43-95 Relative Wall Thickness (2D) 0.85 <=0.42 LV Fractional Shortening/Ejection Fraction 2D/MM LV Fractional Shortening (2D) 28 % 27-45 LV EF (2D Teichholz) 57 % LV Diastolic Volume (4C MOD) 90 ml LV EF (4C MOD) 62 % LV Diastolic Volume (2C MOD) 82 ml LV EF (2C MOD) 67 % LV Diastolic Volume (BP MOD) 86 ml 46-106 LV Diastolic Volume Index (BP MOD) 40 ml/m2 29-61 LV Systolic Volume (BP MOD) 39 ml 14-42 LV Systolic Volume Index (BP MOD) 18 ml/m2 8-24 LV EF (BP MOD) 55 % 54-74 LV Diastolic Length (4C) 8.0 cm LV Systolic Length (4C) 6.8 cm LV Stroke Volume (4C MOD) 56 ml Atria Name Value Normal LA Dimensions LA Volume (4C A-L) 40 ml LA Volume (BP A-L) 47 ml RA Dimensions RA Area (4C) 11.8 cm2 <=18.0 Report Signatures
== END 2024-12-08 08:31 | disposition home or self-care (01) ==
PROVIDERS: PCP Internal Medicine; Visit Provider Internal Medicine
DX: R93.1 Abnormal findings on diagnostic imaging of heart and coronary circulation (principal); R06.02 Shortness of breath; R06.09 Other forms of dyspnea; I10 Essential (primary) hypertension; I47.10 Supraventricular tachycardia, unspecified; R00.2 Palpitations; I25.10 Atherosclerotic heart disease of native coronary artery without angina pectoris
CPT/HCPCS: 78452; 93017; 93306; A9502; J2785